=== PATIENT | female | born 1930 | race Caucasian/White ===

== ENCOUNTER 2017-05-16 00:58 | Inpatient (IN) | payer OTHER ==
--- NOTE | 2017-05-16 01:34 | DR.GENAD ---
HPI - PCP Primary Care Physician: TORRI - HPI Comment HPI Comment: "abdominal pain" - Complaint/Symptoms Chief Complaint:: ABD PAIN AND NV ONSET 4 PM TODAY, Self Treatment fo Chief Complaint: NONE - Nurses notes reviewed Nurses Notes Review: Yes - Source History Provided: Patient - Mode of Arrival Mode of Arrival: EMS - Timing Onset of Chief Complaint: 05/16/17 Came on: Gradually - Duration Duration: Since Onset How lon Duration: Hours - Severity Severity: Moderate - Associated Signs and Symptoms Associated Signs and Symptoms: nausea and vomiting after eating baked squash today at 1pm. PMH - PMH Past Medical History: Yes Past Medical History: Hypertension Past Medical History Comment: A FIB Past Surgical History: Yes Surgical History: CABG/Valve Surgery, Hysterectomy Past Surgical History Comment: EYE X 3 , - Family History History of Family Medical Conditions: No - Social History Does patient currently use any type of tobacco product: No Have you used tobacco products in the last 12 months: No Does any household member use tobacco: No Alcohol Use: None Do you use any recreational Drugs:: No Lives With: Alone Lives Where: Home - infectious screening In the last 2 months have you had wt loss of >10#?: NO Have you had fever, night sweats or hemotysis?: No Have you traveled outside the country in the last 6 months?: No Isolation: Standard ROS - Review of Systems Constitutional: No Symptoms Reported Eyes: No Symptoms Reported ENTM: No Symptoms Reported Respiratoy: No Symptoms Reported Cardiovascular: No Symptoms Reported Gastrointestinal/Abdominal: Abdominal Pain, Nausea, Vomiting Genitourinary: No Symptoms Reported Neurological: No Symptoms Reported Musculoskeletal: No Symptoms Reported Integumentary: No Symptoms Reported Hematologic/Lymphatic: No Symptoms Reported Endocrine: No Symptoms Reported Psychiatric: No Symptoms Reported All Other Systems: Reviewed and Negative PE - Vital Signs Vitals: Temperature 98.5 F Pulse Rate [Right Brachial] 106 Pulse Rate 114 Respiratory Rate 22 Blood Pressure [Right Arm] 98/56 Blood Pressure 175/85 O2 Sat by Pulse Oximetry 96 - General Limitations: No Limitations General Appearance: Alert, In No Apparent Distress - Head Head Exam: Normal Inspection - Eyes Eye exam: Normal Appearance, PERRL, EOMI - ENT ENT Exam: Normal Exam, Normal Oropharynx, Mucous Membranes Moist Mouth Exam: Normal Inspection - Neck Neck Exam: Normal Inspection, Full ROM, Trachea Midline - Chest Chest Inspection: Normal Inspection - Respiratory Respiratory Exam: Normal Lung Sounds Bilat Respiratory Exam: Bilateral Clear to Auscultation - Cardiovascular Cardiovascular Exam: Regular Rate, Normal Rhythm, Normal Heart Sounds - Abdominal Exam Abdominal Exam: Tenderness, Hyperactive Bowel Sounds Abdominal Tenderness: RLQ, LLQ, Epigastrium - Extremities Extremities Exam: Normal Inspection, Full ROM - Back Back Exam: Normal Inspection - Neurologic Neurological Exam: Alert, Oriented X3, CN II-XII Intact - Psychiatric Psychiatric Exam: Normal Affect, Normal Mood - Skin Skin Exam: Warm, Dry, Intact, Normal Color ROR - Labs Reviewed Result Diagrams: 05/16/17 01:50 05/16/17 01:50 Laboratory: WBC 14.6 X10^3/uL (3.6-10.0) H 05/16/17 01:50 RBC 4.11 X10^6/uL (3.5-5.4) 05/16/17 01:50 Hgb 12.8 g/dL (12.0-16.0) 05/16/17 01:50 Hct 37.5 % (36.0-47.0) 05/16/17 01:50 MCV 91.2 fL (80.0-100.0) 05/16/17 01:50 MCH 31.2 pg (27.0-34.0) 05/16/17 01:50 MCHC 34.2 g/dL (33.0-35.0) 05/16/17 01:50 RDW 14.5 % (11.6-16.5) 05/16/17 01:50 Plt Count 242 X10^3/uL (150.0-450.0) 05/16/17 01:50 MPV 7.4 fL (7.4-11.0) 05/16/17 01:50 Neut % 83.5 % (42.0-75.0) H 05/16/17 01:50 Lymph % 9.7 % (21.0-51.0) L 05/16/17 01:50 [place] % 6.0 % (0.0-13.0) 05/16/17 01:50 Eos % 0.4 % (0.9-2.9) L 05/16/17 01:50 Baso % 0.4 % (0.2-1.0) 05/16/17 01:50 Neut # 12.2 x10^3/uL (2.2-4.8) H 05/16/17 01:50 Lymph # 1.4 X10^3/uL (1.3-2.9) 05/16/17 01:50 [place] # 0.9 x10^3/uL (0.3-0.8) H 05/16/17 01:50 Eos # 0.1 x10^3/uL (0.0-0.2) 05/16/17 01:50 Baso # 0.1 X10^3/uL (0.0-0.1) 05/16/17 01:50 Absolute Nucleated RBC 0.0 /100WBC 05/16/17 01:50 INR Target Range - 05/16/17 01:50 INR 1.74 (0.8-1.3) H 05/16/17 01:50 Sodium 138 mmol/L (136-145) 05/16/17 01:50 Corrected Sodium 139 mmol/L (136-145) 05/16/17 01:50 Potassium 3.8 mmol/L (3.5-5.1) 05/16/17 01:50 Chloride 101 mmol/L (98-107) 05/16/17 01:50 Carbon Dioxide 29.2 mmol/L (21-32) 05/16/17 01:50 BUN 30 mg/dL (7-18) H 05/16/17 01:50 Creatinine 1.21 mg/dL (0.55-1.02) H 05/16/17 01:50 Est GFR (MDRD) Af Amer 54 (>60) L 05/16/17 01:50 Est GFR (MDRD) Non-Af 45 (>60) L 05/16/17 01:50 Glucose 155 mg/dL (65-99) H 05/16/17 01:50 Calcium 8.6 mg/dL (8.5-10.1) 05/16/17 01:50 Corrected Calcium TNP 05/16/17 01:50 Total Bilirubin 0.40 mg/dL (0.2-1.0) 05/16/17 01:50 AST 23 Units/L (15-37) 05/16/17 01:50 ALT 25 Units/L (12-78) 05/16/17 01:50 Alkaline Phosphatase 54 Units/L (46-116) 05/16/17 01:50 Creatine Kinase 54 Units/L (26-192) 05/16/17 01:50 CK-MB (CK-2) < 1.0 ng/mL (0-4.0) 05/16/17 01:50 CK/CKMB % Calc 1.9 % (<4) 05/16/17 01:50 Troponin I < 0.02 ng/mL (0-1.5) 05/16/17 01:50 Total Protein 7.8 g/dL (6.4-8.2) 05/16/17 01:50 Albumin 4.0 g/dL (3.4-5.0) 05/16/17 01:50 Globulin 3.8 g/dL (2.5-4.5) 05/16/17 01:50 Albumin/Globulin Ratio 1.1 Ratio (1.1-2.1) 05/16/17 01:50 Amylase 50 Units/L (25-115) 05/16/17 01:50 Lipase 120 Units/L (73-393) 05/16/17 01:50 Specimen Type Clean catch urine 05/16/17 02:21 Urine Color Yellow (YELLOW) 05/16/17 02:21 Urine Appearance Hazy (CLEAR) 05/16/17 02:21 Urine pH 6.0 (5.0 - 8.0) 05/16/17 02:21 Ur Specific [place] 1.015 (1.000-1.030) 05/16/17 02:21 Urine Protein 2+ (NEGATIVE) 05/16/17 02:21 Urine Glucose (UA) Negative (NEGATIVE) 05/16/17 02:21 Urine Ketones Negative (NEGATIVE) 05/16/17 02:21 Urine Occult Blood 2+ (NEGATIVE) 05/16/17 02:21 Urine Nitrite Positive (NEGATIVE) 05/16/17 02:21 Urine Bilirubin Negative (NEGATIVE) 05/16/17 02:21 Urine Urobilinogen Normal (NORMAL) 05/16/17 02:21 Ur Leukocyte Esterase 1+ (NEGATIVE) 05/16/17 02:21 Urine RBC 2-6 /HPF (NEGATIVE) 05/16/17 02:21 Urine WBC 8-12 /HPF (NEGATIVE) 05/16/17 02:21 Ur Squamous Epith Cells Few /HPF (NEGATIVE) 05/16/17 02:21 Urine Bacteria 3+ /HPF (NEGATIVE) 05/16/17 02:21 Ur Culture Indicated? Yes/culture set up 05/16/17 02:21 Gastric Occult Blood Positive (NEGATIVE) A 05/16/17 01:45 Stool pH 3 05/16/17 01:45 H. pylori IgG Antibody Positive (NEGATIVE) A 05/16/17 01:50 - Diagnosis Discharge Problem: Gastroenteritis, Abdominal pain, Urinary tract infection, Helicobacter pylori antibody positive, Helicobacter pylori (H. pylori) infection - Discharge Plan Disposition: 01 HOME, SELF-CARE Condition: Stable Prescriptions: Nitrofurantoin Macrocrystal [Macrodantin] 100 mg PO BID #14 capsule - Follow ups/Referrals Follow ups/Referrals: Mika Rivera [Primary Care Provider] - 3 days - Instructions Instructions: Gastritis, Adult, [id number], Gastritis, Adult, Urinary Tract Infection, Helicobacter Pylori Antibodies Test Additional Notes - Additional Notes Additional Notes: I spoke with Dr. Rivera and he has agreed to admit this patient to the hospital.
[2017-05-16] MEDS ORDERED: ZOFRAN INJ 4 MG VIAL IVP ONE ×2 (01:39→07:32)
[2017-05-16] MEDS ORDERED: PEPCID 20 MG IV PREMIX* 20 MG/50 ML BAG IV ONE ×2 (01:39→01:49)
[2017-05-16] MEDS ORDERED: 1/2 NS IV ONE (01:40)
[2017-05-16] MEDS ORDERED: D5 IV ONE (01:40)
[2017-05-16] MEDS ORDERED: ZOFRAN INJ 4 MG VIAL ONE ×2 (01:49→07:33)
[2017-05-16 02:09] LABS: BASOPHILS # (AUTO) 0.1 X10^3/uL (0.0-0.1); BASOPHILS % (AUTO) 0.4 % (0.2-1.0); EOSINOPHILS # (AUTO) 0.1 x10^3/uL (0.0-0.2); EOSINOPHILS % (AUTO) 0.4 % (0.9-2.9); HEMATOCRIT 37.5 % (36.0-47.0); HEMOGLOBIN 12.8 g/dL (12.0-16.0); LYMPHOCYTES # (AUTO) 1.4 X10^3/uL (1.3-2.9); LYMPHOCYTES % (AUTO) 9.7 % (21.0-51.0); MEAN CORPUSCULAR HEMOGLOBIN 31.2 pg (27.0-34.0); MEAN CORPUSCULAR HGB CONC 34.2 g/dL (33.0-35.0); MEAN CORPUSCULAR VOLUME 91.2 fL (80.0-100.0); MEAN PLATELET VOLUME 7.4 fL (7.4-11.0); MONOCYTES # (AUTO) 0.9 x10^3/uL (0.3-0.8); NEUTROPHILS # (AUTO) 12.2 x10^3/uL (2.2-4.8); NEUTROPHILS % (AUTO) 83.5 % (42.0-75.0); PLATELET COUNT 242 X10^3/uL (150.0-450.0); RED BLOOD COUNT 4.11 X10^6/uL (3.5-5.4); RED CELL DISTRIBUTION WIDTH 14.5 % (11.6-16.5); WHITE BLOOD COUNT 14.6 X10^3/uL (3.6-10.0)
[2017-05-16 02:10] LABS: GASTRIC OCCULT BLOOD POSITIVE (NEGATIVE)
[2017-05-16 02:11] LABS: PH 3
--- NOTE | 2017-05-16 02:28 | RAD ---
EXAM: Abdomen series and Chest x-ray INDICATION: Abdominal pain COMPARISION: No priors TECHNIQUE: Abdomen flat and upright, two views and PA view of the chest, single view FINDINGS: Chronic lung parenchymal changes are seen bilaterally consistent with COPD. No pneumothorax or pleur al effusion. The cardiac silhouette and mediastinum are normal. The bowel gas pattern is nonobstruct ed. No abnormal mass effect or calcification. The regional skeleton is intact. No free air is seen u nder the hemidiaphragms. IMPRESSION: COPD. No acute abnormality identified. Reported By:
[2017-05-16 02:29] LABS: BLOOD UREA NITROGEN 30 mg/dL (7-18); CALCIUM 8.6 mg/dL (8.5-10.1); CARBON DIOXIDE 29.2 mmol/L (21-32); CHLORIDE 101 mmol/L (98-107); COR NA(FOR HYPERGLY) 139 mmol/L (136-145); CREATININE 1.21 mg/dL (0.55-1.02); GLUCOSE 155 mg/dL (65-99); SODIUM 138 mmol/L (136-145); TROPONIN I < 0.02 ng/mL (0-1.5); eGFR BLACK RACES 54 (>60); eGFR NON BLACK RACES 45 (>60)
[2017-05-16 02:33] LABS: ALANINE AMINOTRANSFERASE 25 Units/L (12-78); ALKALINE PHOSPHATASE 54 Units/L (46-116); AMYLASE 50 Units/L (25-115); ASPARTATE AMINO TRANSFERASE 23 Units/L (15-37); CKMB % 1.9 % (<4); CREATINE KINASE 54 Units/L (26-192); CREATINE KINASE MB < 1.0 ng/mL (0-4.0); LIPASE 120 Units/L (73-393); TOTAL PROTEIN 7.8 g/dL (6.4-8.2)
[2017-05-16 02:45] LABS: BILIRUBIN,URINE NEGATIVE (NEGATIVE); BLOOD/HEMOGLOBIN,URINE 2+ (NEGATIVE); GLUCOSE, URINE NEGATIVE (NEGATIVE); KETONES,URINE NEGATIVE (NEGATIVE); LEUKOCYTE ESTERASE ,URINE 1+ (NEGATIVE); NITRITES,URINE POSITIVE (NEGATIVE); PROTEIN,URINE 2+ (NEGATIVE); UROBILINOGEN,URINE NORMAL (NORMAL)
[2017-05-16] MEDS ORDERED: CARDIZEM INJ 50 MG VIAL IVP ONE ×2 (03:06→04:11)
[2017-05-16] MEDS ORDERED: CARDIZEM INJ 50 MG VIAL ONE (03:07)
[2017-05-16 03:24] LABS: APPEARANCE,URINE HAZY (CLEAR); COLOR,URINE YELLOW (YELLOW)
[2017-05-16 03:25] LABS: BACTERIA,URINE 3+ /HPF (NEGATIVE); SQUAMOUS EPITHELIAL CELL,UR FEW /HPF (NEGATIVE)
[2017-05-16] MEDS ORDERED: LEVAQUIN PREMIX IV 500 MG 500 MG/100 ML BAG IV ONE ×2 (04:37→04:42)
[2017-05-16] MEDS ORDERED: COUMADIN TAB 5 MG PO ONE (04:52)
[2017-05-16] MEDS ORDERED: NS 100 ML IV 100 ML IV ONE (05:03)
[2017-05-16] MEDS ORDERED: CARDIZEM INJ 125 MG VIAL ONE (05:04)
[2017-05-16] MEDS: CARDIZEM INJ 125 MG VIAL 125 MG in NS 100 ML IV 100 ML IV PRN ×3 (05:19→12:33)
[2017-05-16] MEDS ORDERED: LEVSIN/MAALOX/LIDOC VISC PO ONE (07:31)
[2017-05-16] MEDS ORDERED: LEVSIN/MAALOX/LIDOC VISC ONE (07:34)
[2017-05-16] MEDS ORDERED: TYLENOL 500 MG TAB EXTRA STRENGTH PO PRN (07:51)
[2017-05-16] MEDS ORDERED: D5 NS 1000 ML 1,000 ML IV SCH (08:00)
[2017-05-16 08:35] LABS: BASOPHILS # (AUTO) 0.1 X10^3/uL (0.0-0.1); BASOPHILS % (AUTO) 0.5 % (0.2-1.0); EOSINOPHILS # (AUTO) 0.1 x10^3/uL (0.0-0.2); EOSINOPHILS % (AUTO) 0.6 % (0.9-2.9); HEMATOCRIT 36.7 % (36.0-47.0); HEMOGLOBIN 12.5 g/dL (12.0-16.0); LYMPHOCYTES # (AUTO) 1.6 X10^3/uL (1.3-2.9); MEAN CORPUSCULAR HEMOGLOBIN 31.1 pg (27.0-34.0); MEAN CORPUSCULAR VOLUME 91.3 fL (80.0-100.0); MEAN PLATELET VOLUME 7.2 fL (7.4-11.0); MONOCYTES # (AUTO) 0.8 x10^3/uL (0.3-0.8); MONOCYTES % (AUTO) 6.4 % (0.0-13.0); NEUTROPHILS # (AUTO) 9.7 x10^3/uL (2.2-4.8); NEUTROPHILS % (AUTO) 79.5 % (42.0-75.0); PLATELET COUNT 239 X10^3/uL (150.0-450.0); RED BLOOD COUNT 4.01 X10^6/uL (3.5-5.4); RED CELL DISTRIBUTION WIDTH 14.3 % (11.6-16.5); WHITE BLOOD COUNT 12.1 X10^3/uL (3.6-10.0)
[2017-05-16 08:44] LABS: ALANINE AMINOTRANSFERASE 24 Units/L (12-78); ALBUMIN 3.6 g/dL (3.4-5.0); ALKALINE PHOSPHATASE 51 Units/L (46-116); ASPARTATE AMINO TRANSFERASE 22 Units/L (15-37); BLOOD UREA NITROGEN 24 mg/dL (7-18); CALCIUM 8.3 mg/dL (8.5-10.1); CARBON DIOXIDE 26.9 mmol/L (21-32); CHLORIDE 101 mmol/L (98-107); CREATININE 1.11 mg/dL (0.55-1.02); GLUCOSE 110 mg/dL (65-99); SODIUM 137 mmol/L (136-145); TOTAL PROTEIN 7.4 g/dL (6.4-8.2); eGFR BLACK RACES 60 (>60); eGFR NON BLACK RACES 50 (>60)
[2017-05-16 09:34] VITALS: BMI 32.8
[2017-05-16] MEDS ORDERED: LANOXIN INJ IVP ONE (11:08)
--- NOTE | 2017-05-16 11:27 | DR.H&P ---
H&P - History & Physical for Day of: H&P Date: 05/16/17 - Chief Complaint Chief Complaint: ABDOMINAL PAIN, NAUSEA, VOMITING - Allergies Allergies/Adverse Reactions: Allergies Allergy/AdvReac Type Severity Reaction Status Date / Time MS Amiodarone [Amiodarone] Allergy Verified 12/12/16 10:20 MS Prednisone [Prednisone] Allergy Verified 12/12/16 10:20 MS Amoxicillin AdvReac Verified 12/12/16 10:20 [From Augmentin] MS Cetirizine [From Zyrtec] AdvReac Verified 12/12/16 10:20 MS Clavulanic Acid AdvReac Verified 12/12/16 10:20 [From Augmentin] MS Statins [Statins] AdvReac Verified 12/12/16 10:20 MS Sulfa Antibiotics AdvReac Verified 12/12/16 10:20 [Sulfa Antibiotics] MS Tramadol [From Ultram] AdvReac Verified 12/12/16 10:20 MS Zolpidem [From Ambien] AdvReac Verified 12/12/16 10:20 - History of Present Illness History of Present Illness: Patient is a 86yo female patient of ours who presented to the emergency room with complaint of nausea, vomiting, and abdominal pain that started at 4pm yesterday. Physical exam revealed abdominal tenderness in RLQ, LLQ, and epitastric area. senior dentist revealed that patient was in atrial fibrillation. Patient reports a history of a-fib. On arrival to the er, vitals were 98.5-114-22-96%-175/85. Labs were obtained and reported wbc 14.6, hgb 12.8, hct 37.5. Cmp obtained and reported sodium 138, BUN 30, creatinine 1.21, glucose 155. INR 1.74, gastric occult blood positive. H -pylori positive. Abdominal xray on arrival reported COPD and no acute abnormality. EKG showed Atrial fibrillation with a rate of 104. Urinalysis reports wbc 8-12, rbc 2-6, nitrates positive, leukocytes 1+, protein 2+, bacteria 3+. A culture was set up and is pending. In the ER patient was given a D5 NS bolus, GI Cocktail for abdominal pain, Pepcid 20mg IV, Levaquin 500mg IV, Zofran 4mg at 0150 and Zofran 8mg @ 0738, Coumadin 5mg, Cardizem 20mg IV bolus and started on Cardizem drip at 10mg/hr. Patient heart rate remains 100- 113. We admitted patient with diagnosis of atrial fibrillation, UTI and H- Pylori gastritis. Patient started on D5 NS @ 20ml/hr, Cardizem drip @10mg/hr, Tylenol 500-100mg PO Q6hr PRN. 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, - Past Surgical History Surgical History: CABG/Valve Surgery, Hysterectomy Additional Surgical History: LEFT CAROTID SURGERY - Family History Family Medical History: Coronary Artery Disease - Social History Does patient currently use any type of tobacco product: No Have you used tobacco products in the last 12 months: No Type of Tobacco Use: None Does any household member use tobacco: No Alcohol Use: None Drug Use: None - Medications Home Medications: Meclizine HCl 1 tab PO HS 05/16/17 [History Confirmed 05/16/17] Ranitidine HCl [ZANTAC TAB 150 MG *] 1 tab PO DAILY 05/16/17 [History Confirmed 05/16/17] - Review of Systems Constitutional: Weakness. denies: No Symptoms Reported, See HPI, Fever, Chills , Sweats, Malaise, Other Eyes: No Symptoms Reported. denies: See HPI, Pain, Vision Change, Conjunctivae Inflammation, Eyelid Inflammation, Redness, Other ENT: No Symptoms Reported. denies: See HPI, Ear Pain, Ear Discharge, Nose Pain , Nose Discharge, Nose Congestion, Mouth Pain, Mouth Swelling, Throat Pain, Throat Swelling, Other Respiratory: Shortness of Breath. denies: No Symptoms Reported, See HPI, Cough , Dry, Hemoptysis, SOB with Excertion, Pleuritic Pain, Sputum, Wheezing, Other Cardiovascular: No Symptoms Reported. denies: Chest Pain, See HPI, Palpitations , Orthopnea, Paroxysmal Noc. Dyspnea, Edema, Light Headedness, Other Gastrointestinal: See HPI, Nausea, Vomiting, Abdominal Pain. denies: No Symptoms Reported, Diarrhea, Constipation, Melena, Hematochezia, Other Genitourinary: No Symptoms Reported, Dysuria. denies: See HPI, Frequency, Incontinence, Hematuria, Retention, Other Musculoskeletal: No Symptoms Reported. denies: See HPI, Shoulder Pain, Arm Pain , Back Pain, Hand Pain, Leg Pain, Foot Pain, Neck Pain, Other Skin: No Symptoms Reported. denies: See HPI, Rash, Lesions, Jaundice, Bruising , Wound, Ecchymosis, Other Neurological: Weakness. denies: No Symptoms Reported, See HPI, Numbness, Incoordination, Change in Speech, Confusion, Seizures, Other - Physical Exam Vital Signs: Temperature 99 F Pulse Rate [Right Brachial] 113 Respiratory Rate 18 Blood Pressure [Right Arm] 124/82 O2 Sat by Pulse Oximetry 97 Oriented: Normal. negative: Time, Person, Place, Not Oriented, Unable to test, Other Eyes: Normal. negative: Blurred Vision, Diplopia, Discharge, Pain, Redness, Photophobia, Other Ear: Normal. negative: Right, Left, Swelling, Ecchymosis, Hemotypanum, Abrasion , Laceration Nose: Normal. negative: Injected, Discharge, Blood, Other Throat: Normal. negative: Tonsillar Hypertrophy, Red, Exudate, Dry, Other Respiratory: Clear Throughout. negative: Diminished Throughout, Rhonchi Throughout, Rales Throughout, Wheezes Throughout, RUL Clear, RML Clear, RLL Clear, NAYE Clear, LML Clear, LLL Clear, RUL Diminished, RML Diminished, RLL Diminished, NAYE Diminished, LML Diminished, LLL Diminished, RUL Absent, RML Absent, RLL Absent, NAYE Absent, LML Absent, LLL Absent, RUL Rhonchi, RML Rhonchi , RLL Rhonchi, NAYE Rhonchi, LML Rhonchi, LLL Rhonchi, RUL Insp. Wheeze, RML Insp. Wheeze, RLL Insp. Wheeze, NAYE Insp.Wheeze, LML Insp.Wheeze, LLL Insp.Wheeze, RUL Exp. Wheeze, RML Exp. Wheeze, RLL Exp. Wheeze, NAYE Exp. Wheeze , LML Exp. Wheeze, LLL Exp. Wheeze, RUL Rales, RML Rales, RLL Rales, NAYE Rales, LML Rales, LLL Rales, RUL Rub, RML Rub, RLL Rub, NAYE Rub, LML Rub, LLL Rub, RUL Squeak, RML Squeak, RLL Squeak, NAYE Squeak, LML Squeak, LLL Squeak Cardiovascular: Tachycardia. negative: Normal, Bradycardia, Irregular, S3, S4, Systolic, Diastolic, Murmur, Edema, Other : Normal. negative: Dysuria, Hematuria, Frequency, Discharge, Testicular Pain , Bleeding, , Other Auscultation: Bowel Sounds: Normal. negative: Bruit, Absent, Increased, Decreased, High Pitched, Other Palpation: negative: Normal, Spleen Enlarged, Liver Enlarged, Mass Pulsatile, Other Tenderness: RLQ, LLQ, Epigastric. negative: Normal, Diffuse, RUQ, LUQ, Periumbilical, Suprapubic, Mild, Moderate, Severe, Rebound, Guarding, Rigidity, Other Skin: Normal. negative: Decreased Turgur, Rash, Papular, Macular, Maculopapular , Vesicular, Pustular, Petechial, Red, Tender, Hot, Diaphoresis, Wound, Bruising , Ecchymosis, Other Musculoskeletal: Normal. negative: Right, Left, Shoulder, Clavicle, Arm, Elbow , Forearm, Wrist, Hand, Hip, Thigh, Knee, Leg, Ankle, Foot, Back:Thoracic, Back: Lumbar, Back:Midline, Back:Paraspinous, Pelvis, Swelling, Tender, Deformity, Pulse Deficit, Motor Deficit, Sensory Deficit, Instability, Crepitance Psychiatric: Normal. negative: Anxiety, Depression, Agitation, Other Mood Description: Calm. negative: Angry, Apathetic, Depressed, Fearful, Flat, Happy, Hostile, Sad, Suspicious, Withdrawn, Anxious, Appropriate, Labile Affect: Normal. negative: Angry, Anxious, Depressed, Flat, Hysterical, Quiet, Violent Speech Pattern: Clear. negative: Appropriate, Unclear, Inappropriate, Delayed, Slurred, Excessive, Aphasic, Artificially Ventilated - Assessment/Plan (1) Atrial fibrillation Qualifiers: Atrial fibrillation type: unspecified Qualified Code(s): I48.91 - Unspecified atrial fibrillation Status: Acute Plan: digoxin 250mcg bolus, cardizem cd 240mg x 1, wean off cardizem drip, continue to monitor digoxin levels, ekg, irn, monitor patient (2) Urinary tract infection Qualifiers: Urinary tract infection type: site unspecified Hematuria presence: with hematuria Indwelling urinary catheter type: I Encounter type: E Qualified Code(s): N39.0 - Urinary tract infection, site not specified; R31.9 - Hematuria , unspecified Status: Acute Plan: rocephin 1 gm daily, continue to monitor (3) Helicobacter pylori (H. pylori) infection Status: Acute Plan: pepcid 20mg iv bid, continue to monitor
[2017-05-16] MEDS ORDERED: ZANTAC PO ONE (11:34)
[2017-05-16] MEDS ORDERED: CARDIZEM CD 240 MG PO ONE (11:35)
[2017-05-16] MEDS: NORVASC TAB 5 MG PO SCH ×2 (11:40→21:21)
[2017-05-16] MEDS ORDERED: ZANTAC PO SCH (12:00)
[2017-05-16] MEDS: PEPCID 20 MG IV PREMIX* 20 MG/50 ML BAG IV SCH (20:45)
[2017-05-16] MEDS: ANTIVERT TAB 25 MG PO SCH (20:45)
[2017-05-16] MEDS: COUMADIN TAB 10 MG PO SCH (20:46)
[2017-05-17 06:29] LABS: BASOPHILS % (AUTO) 0.2 % (0.2-1.0); EOSINOPHILS # (AUTO) 0.1 x10^3/uL (0.0-0.2); EOSINOPHILS % (AUTO) 1.3 % (0.9-2.9); HEMATOCRIT 37.8 % (36.0-47.0); HEMOGLOBIN 12.9 g/dL (12.0-16.0); LYMPHOCYTES # (AUTO) 2.1 X10^3/uL (1.3-2.9); LYMPHOCYTES % (AUTO) 23.5 % (21.0-51.0); MEAN CORPUSCULAR HEMOGLOBIN 31.4 pg (27.0-34.0); MEAN CORPUSCULAR HGB CONC 34.2 g/dL (33.0-35.0); MEAN CORPUSCULAR VOLUME 91.8 fL (80.0-100.0); MEAN PLATELET VOLUME 7.9 fL (7.4-11.0); MONOCYTES # (AUTO) 0.9 x10^3/uL (0.3-0.8); MONOCYTES % (AUTO) 9.8 % (0.0-13.0); NEUTROPHILS # (AUTO) 5.7 x10^3/uL (2.2-4.8); NEUTROPHILS % (AUTO) 65.2 % (42.0-75.0); PLATELET COUNT 235 X10^3/uL (150.0-450.0); RED BLOOD COUNT 4.12 X10^6/uL (3.5-5.4); RED CELL DISTRIBUTION WIDTH 13.8 % (11.6-16.5); WHITE BLOOD COUNT 8.7 X10^3/uL (3.6-10.0)
[2017-05-17 06:47] LABS: ALANINE AMINOTRANSFERASE 22 Units/L (12-78); ALBUMIN 3.4 g/dL (3.4-5.0); ALKALINE PHOSPHATASE 47 Units/L (46-116); ASPARTATE AMINO TRANSFERASE 22 Units/L (15-37); BLOOD UREA NITROGEN 20 mg/dL (7-18); CALCIUM 8.2 mg/dL (8.5-10.1); CARBON DIOXIDE 26.4 mmol/L (21-32); CHLORIDE 106 mmol/L (98-107); CREATININE 1.18 mg/dL (0.55-1.02); DIGOXIN 0.41 ng/mL (0.9-2); GLUCOSE 105 mg/dL (65-99); SODIUM 140 mmol/L (136-145); TOTAL PROTEIN 7.1 g/dL (6.4-8.2); eGFR BLACK RACES 56 (>60); eGFR NON BLACK RACES 46 (>60)
[2017-05-17] MEDS: PEPCID 20 MG IV PREMIX* 20 MG/50 ML BAG IV SCH ×3 (09:26→21:21)
[2017-05-17] MEDS: NORVASC TAB 5 MG PO SCH (09:26)
[2017-05-17] MEDS: ROCEPHIN VIAL 1 GM 1 GM in NS 50 ML IV + SPIKE MINIBAG* 50 ML IV SCH (09:27)
[2017-05-17] MEDS ORDERED: CARDIZEM CD 240 MG PO ONE (11:09)
[2017-05-17] MEDS: ANTIVERT TAB 25 MG PO SCH (21:21)
[2017-05-17] MEDS: COUMADIN TAB 10 MG PO SCH (21:21)
[2017-05-17] MEDS: CARDIZEM TAB 30 MG PLAIN PO SCH (21:23)
[2017-05-17] MEDS ORDERED: RESTORIL CAP 15 MG PO PRN (21:57)
[2017-05-17] MEDS ORDERED: CARDIZEM TAB 30 MG PLAIN PO SCH (22:00)
[2017-05-18] MEDS: CARDIZEM TAB 30 MG PLAIN PO SCH ×2 (06:45→14:44)
[2017-05-18 06:53] LABS: BASOPHILS # (AUTO) 0.1 X10^3/uL (0.0-0.1); BASOPHILS % (AUTO) 0.8 % (0.2-1.0); EOSINOPHILS # (AUTO) 0.2 x10^3/uL (0.0-0.2); EOSINOPHILS % (AUTO) 1.5 % (0.9-2.9); HEMATOCRIT 39.4 % (36.0-47.0); HEMOGLOBIN 13.5 g/dL (12.0-16.0); LYMPHOCYTES # (AUTO) 1.2 X10^3/uL (1.3-2.9); LYMPHOCYTES % (AUTO) 11.6 % (21.0-51.0); MEAN CORPUSCULAR HEMOGLOBIN 31.1 pg (27.0-34.0); MEAN CORPUSCULAR HGB CONC 34.3 g/dL (33.0-35.0); MEAN CORPUSCULAR VOLUME 90.7 fL (80.0-100.0); MEAN PLATELET VOLUME 7.4 fL (7.4-11.0); MONOCYTES % (AUTO) 9.3 % (0.0-13.0); NEUTROPHILS # (AUTO) 7.9 x10^3/uL (2.2-4.8); NEUTROPHILS % (AUTO) 76.8 % (42.0-75.0); PLATELET COUNT 254 X10^3/uL (150.0-450.0); RED BLOOD COUNT 4.35 X10^6/uL (3.5-5.4); RED CELL DISTRIBUTION WIDTH 13.9 % (11.6-16.5); WHITE BLOOD COUNT 10.3 X10^3/uL (3.6-10.0)
[2017-05-18 07:10] LABS: ALANINE AMINOTRANSFERASE 26 Units/L (12-78); ALBUMIN 3.7 g/dL (3.4-5.0); ALKALINE PHOSPHATASE 54 Units/L (46-116); ASPARTATE AMINO TRANSFERASE 29 Units/L (15-37); BLOOD UREA NITROGEN 17 mg/dL (7-18); CALCIUM 8.2 mg/dL (8.5-10.1); CARBON DIOXIDE 27.1 mmol/L (21-32); CHLORIDE 105 mmol/L (98-107); COR NA(FOR HYPERGLY) 139 mmol/L (136-145); CREATININE 1.11 mg/dL (0.55-1.02); GLUCOSE 114 mg/dL (65-99); SODIUM 139 mmol/L (136-145); TOTAL PROTEIN 7.4 g/dL (6.4-8.2); eGFR BLACK RACES 60 (>60); eGFR NON BLACK RACES 50 (>60)
[2017-05-18] MEDS: PEPCID 20 MG IV PREMIX* 20 MG/50 ML BAG IV SCH ×2 (09:10→22:11)
[2017-05-18] MEDS: ROCEPHIN VIAL 1 GM 1 GM in NS 50 ML IV + SPIKE MINIBAG* 50 ML IV SCH (09:54)
[2017-05-18] MEDS ORDERED: HALDOL INJ IVP PRN (10:39)
[2017-05-18] MEDS ORDERED: LANOXIN INJ IVP ONE (15:03)
[2017-05-18] MEDS ORDERED: LOPRESSOR INJ 5 MG AMP IVP ONE (15:05)
[2017-05-18] MEDS ORDERED: LANOXIN INJ IVP SCH ×2 (15:10→21:15)
[2017-05-18] MEDS ORDERED: CARDIZEM INJ 125 MG VIAL 125 MG in NS 100 ML IV 100 ML IV PRN (20:02)
[2017-05-18] MEDS ORDERED: CARDIZEM INJ 125 MG VIAL ONE (20:03)
[2017-05-18] MEDS ORDERED: NS 100 ML IV 100 ML IV ONE (20:04)
[2017-05-18] MEDS: BETAPACE AF PO SCH (22:12)
[2017-05-18] MEDS: ANTIVERT TAB 25 MG PO SCH (22:13)
[2017-05-18] MEDS: COUMADIN TAB 10 MG PO SCH (22:15)
[2017-05-19 05:53] LABS: ALANINE AMINOTRANSFERASE 29 Units/L (12-78); ALBUMIN 3.2 g/dL (3.4-5.0); ALKALINE PHOSPHATASE 49 Units/L (46-116); ASPARTATE AMINO TRANSFERASE 32 Units/L (15-37); BASOPHILS # (AUTO) 0.1 X10^3/uL (0.0-0.1); BLOOD UREA NITROGEN 16 mg/dL (7-18); CALCIUM 7.9 mg/dL (8.5-10.1); CARBON DIOXIDE 26.4 mmol/L (21-32); CHLORIDE 106 mmol/L (98-107); COR CA(FOR HYPOALB) 8.5 mg/dL (8.5-10.1); EOSINOPHILS # (AUTO) 0.2 x10^3/uL (0.0-0.2); EOSINOPHILS % (AUTO) 3.3 % (0.9-2.9); GLUCOSE 98 mg/dL (65-99); HEMATOCRIT 39.6 % (36.0-47.0); HEMOGLOBIN 13.6 g/dL (12.0-16.0); LYMPHOCYTES # (AUTO) 1.5 X10^3/uL (1.3-2.9); LYMPHOCYTES % (AUTO) 21.1 % (21.0-51.0); MEAN CORPUSCULAR HEMOGLOBIN 31.4 pg (27.0-34.0); MEAN CORPUSCULAR HGB CONC 34.4 g/dL (33.0-35.0); MEAN CORPUSCULAR VOLUME 91.3 fL (80.0-100.0); MEAN PLATELET VOLUME 7.5 fL (7.4-11.0); MONOCYTES # (AUTO) 0.9 x10^3/uL (0.3-0.8); MONOCYTES % (AUTO) 12.2 % (0.0-13.0); NEUTROPHILS # (AUTO) 4.6 x10^3/uL (2.2-4.8); NEUTROPHILS % (AUTO) 62.4 % (42.0-75.0); PLATELET COUNT 229 X10^3/uL (150.0-450.0); RED BLOOD COUNT 4.33 X10^6/uL (3.5-5.4); RED CELL DISTRIBUTION WIDTH 13.6 % (11.6-16.5); SODIUM 140 mmol/L (136-145); TOTAL PROTEIN 6.7 g/dL (6.4-8.2); WHITE BLOOD COUNT 7.3 X10^3/uL (3.6-10.0); eGFR BLACK RACES > 60 (>60); eGFR NON BLACK RACES 56 (>60)
[2017-05-19] MEDS: ROCEPHIN VIAL 1 GM 1 GM in NS 50 ML IV + SPIKE MINIBAG* 50 ML IV SCH (09:16)
[2017-05-19] MEDS: PEPCID 20 MG IV PREMIX* 20 MG/50 ML BAG IV SCH ×2 (09:16→20:16)
[2017-05-19] MEDS: BETAPACE AF PO SCH ×2 (09:16→20:17)
--- NOTE | 2017-05-19 10:10 | RAD ---
HISTORY: Shortness of breath Study: Single view of the chest. Comparison: 05/16/2017 Findings: The cardiomediastinal silhouette is normal. No focal consolidations, pleural effusions or pneumothor ax. Osseous structures demonstrate no acute abnormality. IMPRESSION: 1. No acute cardiopulmonary process. Reported By:
--- NOTE | 2017-05-19 10:54 | PCM.PROG ---
Progress Note - Progress Note for Day of Date: 05/19/17 - Subjective Subjective: IS ALERT AND ORIENTED ON MORNING ROUNDS. FAMILY AT BEDSIDE. PATIENT COMPLAINS OF SUPRAPUBIC PAIN AND A BURNING SENSATION TO HER STOMACH. SHE DENIES CHEST PAIN OR SHORTNESS OF BREATH AT THIS TIME. ON EXAMINATION, LUNGS ARE CLEAR TO AUSCULTATION. BOWEL SOUNDS ARE NORMAL IN ALL QUADRANTS. VITALS THIS AM ARE 98.2-74-17-98%-141/66. CBC WNL. CMP WNL EXCEPT CALCIUM 7.9, ALBUMIN 3.2. INR 3.49, DIGOXIN 1.80. URINE MICROBIOLOGY REPORTS E.COLI WHICH IS SENSITIVE TO THE ROCEPHIN THAT SHE IS ON. CHEST XRAY NORMAL. WE WILL CHECK AN MRI OF THE BRAIN WITHOUT CONTRAST DUE TO GFR OF 56. WE WILL START HER ON CARDIZEM 120MG PO BID. WE WILL RECHECK LABS AND EKGS AND FOLLOW UP WITH PATIENT IN AM. - Past Medical Family Social History Past Med/Fam/Surg Hx: No changes since H&P Allergies: Allergies amiodarone Allergy (Verified 05/16/17 21:20) prednisone Allergy (Verified 05/16/17 21:20) amoxicillin Adverse Reaction (Verified 05/16/17 21:20) cetirizine [From Zyrtec] Adverse Reaction (Verified 05/16/17 21:20) clavulanic acid Adverse Reaction (Verified 05/16/17 21:20) erythromycin base [From Staticin] Adverse Reaction (Verified 05/16/17 21:20) ethyl alcohol [From Staticin] Adverse Reaction (Verified 05/16/17 21:20) Sulfa (Sulfonamide Antibiotics) [SULFA] Adverse Reaction (Verified 05/16/17 21: 20) tramadol Adverse Reaction (Verified 05/16/17 21:20) zolpidem Adverse Reaction (Verified 05/16/17 21:20) - Review of Systems ROS: No change since H&P - Vital Signs and I&O's Vital Signs: Temperature 98.7 F Pulse Rate [Right Brachial] 82 Pulse Rate 123 Respiratory Rate 18 Blood Pressure [Right Arm] 134/68 O2 Sat by Pulse Oximetry 95 Intake and Output: Intake & Output 05/16/17 05/17/17 05/18/17 05/19/17 11:59 11:59 11:59 11:59 Intake Total 125 2106 1045 690 Output Total 1000 1500 Balance 125 1106 -850 690 - Physical Exam Oriented: Normal. negative: Time, Person, Place, Not Oriented, Unable to test, Other Eyes: Normal. negative: Blurred Vision, Diplopia, Discharge, Pain, Redness, Photophobia, Other Ear: Normal. negative: Right, Left, Swelling, Ecchymosis, Hemotypanum, Abrasion , Laceration Nose: Normal. negative: Injected, Discharge, Blood, Other Throat: Normal. negative: Tonsillar Hypertrophy, Red, Exudate, Dry, Other Respiratory: Normal Cardiovascular: Tachycardia. negative: Normal, Bradycardia, Irregular, S3, S4, Systolic, Diastolic, Murmur, Edema, Other : Normal. negative: Dysuria, Hematuria, Frequency, Discharge, Testicular Pain , Bleeding, , Other Auscultation: Bowel Sounds: Normal. negative: Bruit, Absent, Increased, Decreased, High Pitched, Other Palpation: Normal Tenderness: RLQ, LLQ, Epigastric. negative: Normal, Diffuse, RUQ, LUQ, Periumbilical, Suprapubic, Mild, Moderate, Severe, Rebound, Guarding, Rigidity, Other Skin: Normal. negative: Decreased Turgur, Rash, Papular, Macular, Maculopapular , Vesicular, Pustular, Petechial, Red, Tender, Hot, Diaphoresis, Wound, Bruising , Ecchymosis, Other Musculoskeletal: Normal. negative: Right, Left, Shoulder, Clavicle, Arm, Elbow , Forearm, Wrist, Hand, Hip, Thigh, Knee, Leg, Ankle, Foot, Back:Thoracic, Back: Lumbar, Back:Midline, Back:Paraspinous, Pelvis, Swelling, Tender, Deformity, Pulse Deficit, Motor Deficit, Sensory Deficit, Instability, Crepitance Psychiatric: Normal. negative: Anxiety, Depression, Agitation, Other Mood Description: Calm. negative: Angry, Apathetic, Depressed, Fearful, Flat, Happy, Hostile, Sad, Suspicious, Withdrawn, Anxious, Appropriate, Labile Affect: Normal. negative: Angry, Anxious, Depressed, Flat, Hysterical, Quiet, Violent Speech Pattern: Clear, Inappropriate - Laboratory and Diagnostics Result Diagrams: 05/19/17 05:18 05/19/17 05:18 Labs: Laboratory WBC 7.3 X10^3/uL (3.6-10.0) 05/19/17 05:18 RBC 4.33 X10^6/uL (3.5-5.4) 05/19/17 05:18 Hgb 13.6 g/dL (12.0-16.0) 05/19/17 05:18 Hct 39.6 % (36.0-47.0) 05/19/17 05:18 MCV 91.3 fL (80.0-100.0) 05/19/17 05:18 MCH 31.4 pg (27.0-34.0) 05/19/17 05:18 MCHC 34.4 g/dL (33.0-35.0) 05/19/17 05:18 RDW 13.6 % (11.6-16.5) 05/19/17 05:18 Plt Count 229 X10^3/uL (150.0-450.0) 05/19/17 05:18 MPV 7.5 fL (7.4-11.0) 05/19/17 05:18 Neut % 62.4 % (42.0-75.0) 05/19/17 05:18 Lymph % 21.1 % (21.0-51.0) 05/19/17 05:18 [place] % 12.2 % (0.0-13.0) 05/19/17 05:18 Eos % 3.3 % (0.9-2.9) H 05/19/17 05:18 Baso % 1.0 % (0.2-1.0) 05/19/17 05:18 Neut # 4.6 x10^3/uL (2.2-4.8) 05/19/17 05:18 Lymph # 1.5 X10^3/uL (1.3-2.9) 05/19/17 05:18 [place] # 0.9 x10^3/uL (0.3-0.8) H 05/19/17 05:18 Eos # 0.2 x10^3/uL (0.0-0.2) 05/19/17 05:18 Baso # 0.1 X10^3/uL (0.0-0.1) 05/19/17 05:18 Absolute Nucleated RBC 0.1 /100WBC 05/19/17 05:18 INR Target Range - 05/19/17 05:50 INR 3.49 (0.8-1.3) H 05/19/17 05:50 Sodium 140 mmol/L (136-145) 05/19/17 05:18 Corrected Sodium TNP 05/19/17 05:18 Potassium 3.5 mmol/L (3.5-5.1) 05/19/17 05:18 Chloride 106 mmol/L (98-107) 05/19/17 05:18 Carbon Dioxide 26.4 mmol/L (21-32) 05/19/17 05:18 BUN 16 mg/dL (7-18) 05/19/17 05:18 Creatinine 1.00 mg/dL (0.55-1.02) 05/19/17 05:18 Est GFR (MDRD) Af Amer > 60 (>60) 05/19/17 05:18 Est GFR (MDRD) Non-Af 56 (>60) L 05/19/17 05:18 Glucose 98 mg/dL (65-99) 05/19/17 05:18 Calcium 7.9 mg/dL (8.5-10.1) L 05/19/17 05:18 Corrected Calcium 8.5 mg/dL (8.5-10.1) 05/19/17 05:18 Total Bilirubin 0.60 mg/dL (0.2-1.0) 05/19/17 05:18 AST 32 Units/L (15-37) 05/19/17 05:18 ALT 29 Units/L (12-78) 05/19/17 05:18 Alkaline Phosphatase 49 Units/L (46-116) 05/19/17 05:18 Creatine Kinase 54 Units/L (26-192) 05/16/17 01:50 CK-MB (CK-2) < 1.0 ng/mL (0-4.0) 05/16/17 01:50 CK/CKMB % Calc 1.9 % (<4) 05/16/17 01:50 Troponin I < 0.02 ng/mL (0-1.5) 05/16/17 01:50 Total Protein 6.7 g/dL (6.4-8.2) 05/19/17 05:18 Albumin 3.2 g/dL (3.4-5.0) L 05/19/17 05:18 Globulin 3.5 g/dL (2.5-4.5) 05/19/17 05:18 Albumin/Globulin Ratio 0.9 Ratio (1.1-2.1) L 05/19/17 05:18 Amylase 50 Units/L (25-115) 05/16/17 01:50 Lipase 120 Units/L (73-393) 05/16/17 01:50 Specimen Type Clean catch urine 05/16/17 02:21 Urine Color Yellow (YELLOW) 05/16/17 02:21 Urine Appearance Hazy (CLEAR) 05/16/17 02:21 Urine pH 6.0 (5.0 - 8.0) 05/16/17 02:21 Ur Specific [place] 1.015 (1.000-1.030) 05/16/17 02:21 Urine Protein 2+ (NEGATIVE) 05/16/17 02:21 Urine Glucose (UA) Negative (NEGATIVE) 05/16/17 02:21 Urine Ketones Negative (NEGATIVE) 05/16/17 02:21 Urine Occult Blood 2+ (NEGATIVE) 05/16/17 02:21 Urine Nitrite Positive (NEGATIVE) 05/16/17 02:21 Urine Bilirubin Negative (NEGATIVE) 05/16/17 02:21 Urine Urobilinogen Normal (NORMAL) 05/16/17 02:21 Ur Leukocyte Esterase 1+ (NEGATIVE) 05/16/17 02:21 Urine RBC 2-6 /HPF (NEGATIVE) 05/16/17 02:21 Urine WBC 8-12 /HPF (NEGATIVE) 05/16/17 02:21 Ur Squamous Epith Cells Few /HPF (NEGATIVE) 05/16/17 02:21 Urine Bacteria 3+ /HPF (NEGATIVE) 05/16/17 02:21 Ur Culture Indicated? Yes/culture set up 05/16/17 02:21 Gastric Occult Blood Positive (NEGATIVE) A 05/16/17 01:45 Stool pH 3 05/16/17 01:45 Digoxin 1.80 ng/mL (0.9-2) 05/19/17 05:18 H. pylori IgG Antibody Positive (NEGATIVE) A 05/16/17 01:50 - Plan (1) Atrial fibrillation Status: Acute Qualifiers: Atrial fibrillation type: unspecified Qualified Code(s): I48.91 - Unspecified atrial fibrillation Plan: start cardizem 120mg bid, continue to monitor digoxin levels, ekg, irn, monitor patient (2) Urinary tract infection Status: Acute Qualifiers: Urinary tract infection type: site unspecified Hematuria presence: with hematuria Indwelling urinary catheter type: I Encounter type: E Qualified Code(s): N39.0 - Urinary tract infection, site not specified; R31.9 - Hematuria , unspecified Plan: rocephin 1 gm daily, continue to monitor (3) Helicobacter pylori (H. pylori) infection Status: Acute Plan: pepcid 20mg iv bid, continue to monitor
[2017-05-19] MEDS: CARDIZEM SR 120 MG PO SCH ×2 (11:09→20:17)
[2017-05-19] MEDS: ANTIVERT TAB 25 MG PO SCH (20:18)
[2017-05-20 06:26] LABS: BASOPHILS # (AUTO) 0.1 X10^3/uL (0.0-0.1); BASOPHILS % (AUTO) 1.3 % (0.2-1.0); EOSINOPHILS # (AUTO) 0.3 x10^3/uL (0.0-0.2); EOSINOPHILS % (AUTO) 3.7 % (0.9-2.9); HEMATOCRIT 38.7 % (36.0-47.0); HEMOGLOBIN 13.3 g/dL (12.0-16.0); LYMPHOCYTES % (AUTO) 26.4 % (21.0-51.0); MEAN CORPUSCULAR HEMOGLOBIN 31.2 pg (27.0-34.0); MEAN CORPUSCULAR HGB CONC 34.5 g/dL (33.0-35.0); MEAN CORPUSCULAR VOLUME 90.4 fL (80.0-100.0); MEAN PLATELET VOLUME 8.2 fL (7.4-11.0); MONOCYTES # (AUTO) 0.9 x10^3/uL (0.3-0.8); MONOCYTES % (AUTO) 11.5 % (0.0-13.0); NEUTROPHILS # (AUTO) 4.4 x10^3/uL (2.2-4.8); NEUTROPHILS % (AUTO) 57.1 % (42.0-75.0); PLATELET COUNT 227 X10^3/uL (150.0-450.0); RED BLOOD COUNT 4.28 X10^6/uL (3.5-5.4); RED CELL DISTRIBUTION WIDTH 13.9 % (11.6-16.5); WHITE BLOOD COUNT 7.7 X10^3/uL (3.6-10.0)
[2017-05-20 06:28] LABS: ALANINE AMINOTRANSFERASE 35 Units/L (12-78); ALKALINE PHOSPHATASE 51 Units/L (46-116); ASPARTATE AMINO TRANSFERASE 30 Units/L (15-37); BLOOD UREA NITROGEN 26 mg/dL (7-18); CALCIUM 7.7 mg/dL (8.5-10.1); CHLORIDE 105 mmol/L (98-107); COR CA(FOR HYPOALB) 8.5 mg/dL (8.5-10.1); CREATININE 1.38 mg/dL (0.55-1.02); DIGOXIN 1.29 ng/mL (0.9-2); GLUCOSE 106 mg/dL (65-99); SODIUM 141 mmol/L (136-145); TOTAL PROTEIN 6.3 g/dL (6.4-8.2); eGFR BLACK RACES 47 (>60); eGFR NON BLACK RACES 39 (>60)
--- NOTE | 2017-05-20 06:31 | RAD ---
HISTORY: Shortness of breath Study: Chest one view Comparison: May 19, 2017, May 16, 2017 Findings: The patient is status post median sternotomy and CABG. The heart is mildly enlarged. No congestive h eart failure is noted. The arden are normal. The lungs are mildly hyperinflated but free of acute sally eolar infiltrates. The bony thorax is unremarkable. IMPRESSION: Mild cardiomegaly without congestive heart failure Lungs mildly hyperinflated but clear Reported By:
[2017-05-20] MEDS: PEPCID 20 MG IV PREMIX* 20 MG/50 ML BAG IV SCH (09:17)
[2017-05-20] MEDS: CARDIZEM SR 120 MG PO SCH (09:17)
[2017-05-20] MEDS: BETAPACE AF PO SCH (09:17)
[2017-05-20] MEDS: ROCEPHIN VIAL 1 GM 1 GM in NS 50 ML IV + SPIKE MINIBAG* 50 ML IV SCH (10:04)
[2017-05-20 14:55] VITALS: BP 146/68
== END 2017-05-20 14:06 | disposition home or self-care (01) | DRG 309 ==
LOC: ER 00:58 → ICU 07:47
PROVIDERS: ADMIT Internal Medicine; ATTEND Internal Medicine
DX: I48.91 Unspecified atrial fibrillation (principal); N39.0 Urinary tract infection, site not specified; B96.81 Helicobacter pylori [H. pylori] as the cause of diseases classified elsewhere; K29.60 Other gastritis without bleeding; R10.84 Generalized abdominal pain; I10 Essential (primary) hypertension; R94.31 Abnormal electrocardiogram [ECG] [EKG]; R11.2 Nausea with vomiting, unspecified; R06.02 Shortness of breath; R31.9 Hematuria, unspecified; R41.82 Altered mental status, unspecified; B96.29 Other Escherichia coli [E. coli] as the cause of diseases classified elsewhere; R26.89 Other abnormalities of gait and mobility; Z78.1 Physical restraint status
CPT/HCPCS: 36415; 71010; 74022; 80053; 80162; 81001; 82150; 82271; 82550; 82553; 83690; 84484; 85025; 85610; 86677; 87086; 87088; 87186; 93005; 96365; 96367; 96374; 96375; 99231; 99284; 99285; A4222; S0028; J0696; J1160; J1630; J1956; J2405; J3490; J7042

== ENCOUNTER → 2017-07-09 | Outpatient (CLI) | payer OTHER ==
--- NOTE | 2017-07-11 09:16 | MG ---
HISTORY: SCREENING Comparison: Multiple priors dating back to October 24, 2008 FINDINGS: Bilateral CC and MLO projections of the right and left breast were obtained. Scattered fibroglandula r tissue is seen to be present without significant interval change. No suspicious architectural dist ortion, mass or clustered microcalcifications can be observed to suggest malignancy. No skin thicken ing or nipple retraction is appreciated. No pathological lymphadenopathy can be identified. Benign- appearing calcifications are noted within the right and left breast. IMPRESSION: NO RADIOGRAPHIC EVIDENCE OF MALIGNANCY. ACR CATEGORY 2 - benign findings. FOLLOW-UP EXAM 1 YEAR. Diagnostic CAD was utilized and reviewed. * 0 (ZERO) - ASSESSMENT INCOMPLETE; ADDITIONAL IMAGING IS NEEDED. * 1/1 (ONE) - NEGATIVE. * 2/II (TWO) - BENIGN FINDINGS. * 3/III (THREE) - PROBABLY BENIGN FINDING; SHORT INTERVAL FOLLOW-UP SUGGESTED. * 4/IV (FOUR) - SUSPICIOUS ABNORMALITY; BIOPSY SHOULD BE CONSIDERED. * 5/V (FIVE) - HIGHLY SUSPICIOUS OF MALIGNANCY; BIOPSY SHOULD BE PERFORMED. A NEGATIVE X-RAY REPORT SHOULD NOT DELAY BIOPSY IF A DOMINANT OR CLINICALLY SUSPICIOUS MASS IS PRESENT; 4 TO 8 PERCENT OF CANCERS ARE NOT IDENTIFIED BY X-RAY. A NEGA TIVE REPORT MAY REINFORCE THE CLINICAL IMPRESSION. ADENOSIS AND DENSE BREASTS MAY OBSCURE AN UNDERLY ING NEOPLASM. Reported By:
== END ==
LOC: RAD 09:53
PROVIDERS: ATTEND Internal Medicine
DX: Z12.31 Encounter for screening mammogram for malignant neoplasm of breast (principal)
CPT/HCPCS: 77067

== ENCOUNTER → 2017-08-12 | Outpatient (CLI) | payer OTHER | LOC: LAB 10:03 | PROVIDERS: ATTEND Internal Medicine Gastroenterology | DX: K64.0 First degree hemorrhoids (principal) | CPT/HCPCS: 82270 ==

== ENCOUNTER → 2018-01-08 | Outpatient (CLI) | payer OTHER ==
[~2018-01-08] MED LIST: LEXISCAN IV ONE
== END ==
LOC: RAD 08:41
PROVIDERS: ATTEND Internal Medicine Cardiovascular Disease
DX: I25.10 Atherosclerotic heart disease of native coronary artery without angina pectoris (principal)
CPT/HCPCS: 78452; 93017; A4222; A9502; J2785

== ENCOUNTER → 2018-01-15 | Outpatient (CLI) | payer OTHER | LOC: RAD 14:03 | PROVIDERS: ATTEND Internal Medicine Cardiovascular Disease | DX: I25.10 Atherosclerotic heart disease of native coronary artery without angina pectoris (principal) | CPT/HCPCS: 93306 ==

== ENCOUNTER 2018-06-10 12:26 | Inpatient (IN) ==
[2018-06-10 14:45] LABS: BASOPHILS # (AUTO) 0.1 X10^3/uL (0.0-0.1); BASOPHILS % (AUTO) 1.1 % (0.2-1.0); EOSINOPHILS # (AUTO) 0.1 x10^3/uL (0.0-0.2); EOSINOPHILS % (AUTO) 0.6 % (0.9-2.9); HEMATOCRIT 37.4 % (36.0-47.0); HEMOGLOBIN 12.8 g/dL (12.0-16.0); LYMPHOCYTES # (AUTO) 1.7 X10^3/uL (1.3-2.9); LYMPHOCYTES % (AUTO) 14.3 % (21.0-51.0); MEAN CORPUSCULAR HEMOGLOBIN 32.1 pg (27.0-34.0); MEAN CORPUSCULAR HGB CONC 34.3 g/dL (33.0-35.0); MEAN CORPUSCULAR VOLUME 93.7 fL (80.0-100.0); MEAN PLATELET VOLUME 7.9 fL (7.4-11.0); MONOCYTES # (AUTO) 1.2 x10^3/uL (0.3-0.8); MONOCYTES % (AUTO) 10.5 % (0.0-13.0); NEUTROPHILS # (AUTO) 8.5 x10^3/uL (2.2-4.8); NEUTROPHILS % (AUTO) 73.5 % (42.0-75.0); PLATELET COUNT 227 X10^3/uL (150.0-450.0); RED BLOOD COUNT 3.99 X10^6/uL (3.5-5.4); RED CELL DISTRIBUTION WIDTH 13.5 % (11.6-16.5); WHITE BLOOD COUNT 11.6 X10^3/uL (3.6-10.0)
[2018-06-10 15:31] LABS: ALANINE AMINOTRANSFERASE 19 Units/L (12-78); ALBUMIN 3.5 g/dL (3.4-5.0); ALKALINE PHOSPHATASE 50 Units/L (46-116); ASPARTATE AMINO TRANSFERASE 21 Units/L (15-37); BLOOD UREA NITROGEN 36 mg/dL (7-18); CALCIUM 8.8 mg/dL (8.5-10.1); CARBON DIOXIDE 25.4 mmol/L (21-32); CHLORIDE 99 mmol/L (98-107); CKMB % 0.9 % (<4); CREATINE KINASE 138 Units/L (26-192); CREATINE KINASE MB 1.3 ng/mL (0-4.0); CREATININE 1.68 mg/dL (0.55-1.02); SODIUM 136 mmol/L (136-145); TOTAL PROTEIN 7.2 g/dL (6.4-8.2); TROPONIN I < 0.02 ng/mL (0-1.5); eGFR NON BLACK RACES 31 (>60)
[2018-06-10] MEDS: NS 1000 ML 1,000 ML IV SCH (16:00)
--- NOTE | 2018-06-10 16:00 | RAD ---
HISTORY: Falls Study: PA chest Comparison: May 29 Findings: The trachea is midline. The cardiac silhouette is normal status post old sternotomy for coronary art los bypass grafting surgery.. The lungs are clear without focal infiltrate or effusion. The bony th orax is unremarkable. IMPRESSION: 1. No acute cardiopulmonary disease. Reported By:
--- NOTE | 2018-06-10 16:05 | RAD ---
History: Right leg pain after fall Study: Three views right tibia and fibula, overall AP and lateral Findings: There is no fracture or dislocation or periosteal reaction. Impression: Negative Reported By:
--- NOTE | 2018-06-10 16:06 | RAD ---
History: Right foot pain after fall Study: Three views right foot, AP oblique and lateral projections Findings: There is a acute transverse fracture at the base of the 5th metatarsal with a few mm of dis traction. There is dorsal soft tissue swelling. Impression: Fracture at the base of the 5th metatarsal Reported By:
--- NOTE | 2018-06-10 16:07 | RAD ---
History: Fall and right ankle pain graft study three views right ankle including AP oblique and later al projections Findings: There is no ankle fracture or subluxation. The fracture at the base of the 5th metatarsal i s seen in the lateral projection. Impression: 1. Negative right ankle 2. Fracture at the base of the 5th metatarsal Reported By:
--- NOTE | 2018-06-10 16:26 | CT ---
STUDY: CT HEAD WITHOUT CONTRAST HISTORY: Falls. Weakness. Hypertension. Headache. COMPARISON: None. TECHNIQUE: Multiple axial images of the head were obtained from the skull base to the vertex without administration of IV contrast. Automated exposure control (AEC) was utilized to adjust the MA and/or kV. Findings: The sulci, cisterns and ventricles are prominent consistent with diffuse volume loss. There are confluent and scattered foci of low attenuation in the periventricular and subcortical whit e matter of both hemispheres. This is a nonspecific finding which likely represents microangiopathic change in a patient of this age. There is no evidence of acute territorial infarction, hemorrhage, mass, mass effect or midline shift. There are no abnormal extra-axial fluid collections. There is no evidence of acute osseous abnormality or significant soft tissue swelling. IMPRESSION: 1. No evidence of acute intracranial abnormality. 2. Nonspecific white matter change and volume loss as described. 3. If there remains strong clinical concern for acute infarction, then an MRI examination of the brai n could be performed for further evaluation. However, if there are no deficits on neurologic exam, th ere are no abnormalities identified on this study which require immediate imaging follow-up on an asad rgent basis. Follow-up MRI could be considered on an outpatient basis as clinically warranted. Reported By:
[2018-06-10 19:24] LABS: CKMB % 1.1 % (<4); CREATINE KINASE 130 Units/L (26-192); CREATINE KINASE MB 1.4 ng/mL (0-4.0); TROPONIN I < 0.02 ng/mL (0-1.5)
[2018-06-10 22:44] LABS: CREATINE KINASE MB 1.1 ng/mL (0-4.0); TROPONIN I 0.02 ng/mL (0-1.5)
[2018-06-11] MEDS: COUMADIN TAB 5 MG PO SCH ×2 (02:03→21:15)
[2018-06-11] MEDS: NS 1000 ML 1,000 ML IV SCH (03:24)
[2018-06-11 06:26] LABS: BASOPHILS # (AUTO) 0.1 X10^3/uL (0.0-0.1); BASOPHILS % (AUTO) 1.3 % (0.2-1.0); EOSINOPHILS # (AUTO) 0.2 x10^3/uL (0.0-0.2); EOSINOPHILS % (AUTO) 1.6 % (0.9-2.9); HEMATOCRIT 35.8 % (36.0-47.0); HEMOGLOBIN 12.5 g/dL (12.0-16.0); LYMPHOCYTES # (AUTO) 1.3 X10^3/uL (1.3-2.9); LYMPHOCYTES % (AUTO) 13.1 % (21.0-51.0); MEAN CORPUSCULAR HEMOGLOBIN 32.5 pg (27.0-34.0); MEAN CORPUSCULAR HGB CONC 34.8 g/dL (33.0-35.0); MEAN CORPUSCULAR VOLUME 93.4 fL (80.0-100.0); MEAN PLATELET VOLUME 8.2 fL (7.4-11.0); MONOCYTES # (AUTO) 0.8 x10^3/uL (0.3-0.8); MONOCYTES % (AUTO) 8.3 % (0.0-13.0); NEUTROPHILS # (AUTO) 7.2 x10^3/uL (2.2-4.8); NEUTROPHILS % (AUTO) 75.7 % (42.0-75.0); PLATELET COUNT 227 X10^3/uL (150.0-450.0); RED BLOOD COUNT 3.84 X10^6/uL (3.5-5.4); RED CELL DISTRIBUTION WIDTH 13.5 % (11.6-16.5); WHITE BLOOD COUNT 9.6 X10^3/uL (3.6-10.0)
[2018-06-11 06:42] LABS: BILIRUBIN,URINE NEGATIVE (NEGATIVE); BLOOD/HEMOGLOBIN,URINE 1+ (NEGATIVE); GLUCOSE, URINE NEGATIVE (NEGATIVE); KETONES,URINE NEGATIVE (NEGATIVE); LEUKOCYTE ESTERASE ,URINE NEGATIVE (NEGATIVE); NITRITES,URINE NEGATIVE (NEGATIVE); PROTEIN,URINE 1+ (NEGATIVE); UROBILINOGEN,URINE NORMAL (NORMAL)
[2018-06-11 07:11] LABS: CALCIUM 8.4 mg/dL (8.5-10.1); CARBON DIOXIDE 26.2 mmol/L (21-32); COR CA(FOR HYPOALB) 9.2 mg/dL (8.5-10.1); CREATININE 1.37 mg/dL (0.55-1.02); TOTAL PROTEIN 6.6 g/dL (6.4-8.2)
[2018-06-11 07:11] LABS: APPEARANCE,URINE CLEAR (CLEAR); COLOR,URINE YELLOW (YELLOW)
[2018-06-11 07:12] LABS: BACTERIA,URINE TRACE /HPF (NEGATIVE); MUCUS,URINE RARE /HPF (NEGATIVE); RBC,URINE 0-2 /HPF (NONE SEEN); SQUAMOUS EPITHELIAL CELL,UR RARE /HPF (NEGATIVE)
--- NOTE | 2018-06-11 08:06 | DR.UPDATE ---
H&P Update History and Physical Update: WAS SEEN IN THE OFFICE TODAY. A H&P WAS COMPLETED PRIOR TO ADMISSION. PATIENT HAS BEEN SEEN AND EXAMINED WITH NO CHANGES NOTED TO H&P. Changes noted: NO Yes with the following:
[2018-06-11] MEDS ORDERED: POTASSIUM CHL 40 MEQ/NS 0.45% 500 ML IV PRN (08:42)
[2018-06-11] MEDS ORDERED: POTASSIUM CHLORIDE LIQ 20 MEQ UDC PO PRN (08:42)
[2018-06-11] MEDS ORDERED: K-LYTE EFFERVESCENT PO PRN (08:42)
[2018-06-11] MEDS ORDERED: K-RIDER 10 MEQ/NS 100 ML 10 MEQ/100 ML BAG IV PRN (08:42)
[2018-06-11] MEDS ORDERED: POTASSIUM CHL 60 MEQ/NS 0.45% 500 ML IV PRN (08:42)
[2018-06-11] MEDS ORDERED: K-DUR TAB 20 MEQ PO STA (12:04)
[2018-06-11] MEDS: LOVENOX INJ 30 MG SYR SC SCH (12:53)
[2018-06-11] MEDS ORDERED: K-DUR TAB 20 MEQ PO NR (15:00)
[2018-06-11 15:14] VITALS: BMI 26.9
[2018-06-12 05:50] LABS: BASOPHILS # (AUTO) 0.1 X10^3/uL (0.0-0.1); BASOPHILS % (AUTO) 0.9 % (0.2-1.0); EOSINOPHILS # (AUTO) 0.2 x10^3/uL (0.0-0.2); EOSINOPHILS % (AUTO) 2.5 % (0.9-2.9); HEMATOCRIT 29.5 % (36.0-47.0); HEMOGLOBIN 10.4 g/dL (12.0-16.0); LYMPHOCYTES # (AUTO) 1.5 X10^3/uL (1.3-2.9); LYMPHOCYTES % (AUTO) 17.6 % (21.0-51.0); MEAN CORPUSCULAR HGB CONC 35.3 g/dL (33.0-35.0); MEAN CORPUSCULAR VOLUME 93.6 fL (80.0-100.0); MEAN PLATELET VOLUME 7.8 fL (7.4-11.0); MONOCYTES % (AUTO) 11.6 % (0.0-13.0); NEUTROPHILS # (AUTO) 5.6 x10^3/uL (2.2-4.8); NEUTROPHILS % (AUTO) 67.4 % (42.0-75.0); PLATELET COUNT 208 X10^3/uL (150.0-450.0); RED BLOOD COUNT 3.15 X10^6/uL (3.5-5.4); RED CELL DISTRIBUTION WIDTH 13.7 % (11.6-16.5); WHITE BLOOD COUNT 8.4 X10^3/uL (3.6-10.0)
[2018-06-12] MEDS: NS 1000 ML 1,000 ML IV SCH ×2 (05:53→18:20)
[2018-06-12 06:03] LABS: ALANINE AMINOTRANSFERASE 14 Units/L (12-78); ALBUMIN 2.4 g/dL (3.4-5.0); ALKALINE PHOSPHATASE 45 Units/L (46-116); ASPARTATE AMINO TRANSFERASE 17 Units/L (15-37); BLOOD UREA NITROGEN 26 mg/dL (7-18); CALCIUM 7.4 mg/dL (8.5-10.1); CARBON DIOXIDE 25.2 mmol/L (21-32); CHLORIDE 108 mmol/L (98-107); COR CA(FOR HYPOALB) 8.7 mg/dL (8.5-10.1); CREATININE 1.34 mg/dL (0.55-1.02); SODIUM 140 mmol/L (136-145); TOTAL PROTEIN 5.4 g/dL (6.4-8.2); eGFR NON BLACK RACES 40 (>60)
[2018-06-12] MEDS: LOVENOX INJ 30 MG SYR SC SCH (08:00)
[2018-06-12] MEDS ORDERED: TOPROL XL PO SCH (11:00)
[2018-06-12] MEDS ORDERED: MAALOX or MYLANTA PO PRN (11:39)
--- NOTE | 2018-06-12 12:18 | RAD ---
History: Right knee pain Study: Three views right knee, AP lateral and oblique projections Findings: There is no fracture subluxation periosteal reaction or joint effusion. Impression: Negative Reported By:
[2018-06-12] MEDS ORDERED: LANOXIN PO ONE (14:45)
[2018-06-12] MEDS: COUMADIN TAB 5 MG PO SCH (20:52)
[2018-06-12] MEDS ORDERED: COLACE CAP 100 MG PO PRN (20:58)
[2018-06-12] MEDS: MILK OF MAGNESIA PO SCH (22:44)
[2018-06-13 06:27] LABS: BASOPHILS # (AUTO) 0.1 X10^3/uL (0.0-0.1); BASOPHILS % (AUTO) 0.7 % (0.2-1.0); EOSINOPHILS # (AUTO) 0.1 x10^3/uL (0.0-0.2); EOSINOPHILS % (AUTO) 0.8 % (0.9-2.9); HEMATOCRIT 33.9 % (36.0-47.0); HEMOGLOBIN 11.6 g/dL (12.0-16.0); LYMPHOCYTES # (AUTO) 1.7 X10^3/uL (1.3-2.9); LYMPHOCYTES % (AUTO) 17.6 % (21.0-51.0); MEAN CORPUSCULAR HEMOGLOBIN 31.9 pg (27.0-34.0); MEAN CORPUSCULAR HGB CONC 34.1 g/dL (33.0-35.0); MEAN CORPUSCULAR VOLUME 93.6 fL (80.0-100.0); MEAN PLATELET VOLUME 8.2 fL (7.4-11.0); MONOCYTES # (AUTO) 0.9 x10^3/uL (0.3-0.8); MONOCYTES % (AUTO) 9.1 % (0.0-13.0); NEUTROPHILS # (AUTO) 6.9 x10^3/uL (2.2-4.8); NEUTROPHILS % (AUTO) 71.8 % (42.0-75.0); PLATELET COUNT 251 X10^3/uL (150.0-450.0); RED BLOOD COUNT 3.62 X10^6/uL (3.5-5.4); RED CELL DISTRIBUTION WIDTH 13.7 % (11.6-16.5); WHITE BLOOD COUNT 9.6 X10^3/uL (3.6-10.0)
[2018-06-13 06:35] LABS: ALANINE AMINOTRANSFERASE 27 Units/L (12-78); ALBUMIN 2.7 g/dL (3.4-5.0); ALKALINE PHOSPHATASE 52 Units/L (46-116); ASPARTATE AMINO TRANSFERASE 36 Units/L (15-37); BLOOD UREA NITROGEN 18 mg/dL (7-18); CARBON DIOXIDE 24.1 mmol/L (21-32); CHLORIDE 105 mmol/L (98-107); COR NA(FOR HYPERGLY) 138 mmol/L (136-145); CREATININE 1.06 mg/dL (0.55-1.02); SODIUM 138 mmol/L (136-145); TOTAL PROTEIN 6.3 g/dL (6.4-8.2); eGFR NON BLACK RACES 52 (>60)
[2018-06-13] MEDS: LANOXIN PO SCH (09:22)
[2018-06-13] MEDS: BETAPACE AF PO SCH ×2 (09:32→21:32)
[2018-06-13] MEDS: LOVENOX INJ 30 MG SYR SC SCH (09:33)
[2018-06-13] MEDS: MILK OF MAGNESIA PO SCH (09:34)
[2018-06-13] MEDS ORDERED: ZOFRAN TAB 4 MG PO PRN (13:10)
[2018-06-13] MEDS: NORVASC TAB 5 MG PO SCH ×2 (15:51→20:42)
[2018-06-13] MEDS ORDERED: CATAPRES TAB 0.1 MG PO ONE (17:17)
[2018-06-13] MEDS: NS 1000 ML 1,000 ML IV SCH ×2 (17:26→20:50)
[2018-06-13] MEDS: COUMADIN TAB 5 MG PO SCH (20:42)
[2018-06-13] MEDS ORDERED: HALDOL INJ IVP ONE (23:34)
[2018-06-14] MEDS ORDERED: CATAPRES TAB 0.1 MG PO ONE (04:21)
[2018-06-14] MEDS: NS 1000 ML 1,000 ML IV SCH ×3 (05:31→22:14)
[2018-06-14 06:08] LABS: BASOPHILS # (AUTO) 0.1 X10^3/uL (0.0-0.1); BASOPHILS % (AUTO) 0.9 % (0.2-1.0); EOSINOPHILS # (AUTO) 0.1 x10^3/uL (0.0-0.2); EOSINOPHILS % (AUTO) 1.2 % (0.9-2.9); HEMOGLOBIN 11.2 g/dL (12.0-16.0); LYMPHOCYTES # (AUTO) 1.1 X10^3/uL (1.3-2.9); LYMPHOCYTES % (AUTO) 12.1 % (21.0-51.0); MEAN CORPUSCULAR HEMOGLOBIN 32.4 pg (27.0-34.0); MEAN CORPUSCULAR VOLUME 92.7 fL (80.0-100.0); MEAN PLATELET VOLUME 8.1 fL (7.4-11.0); MONOCYTES # (AUTO) 0.8 x10^3/uL (0.3-0.8); MONOCYTES % (AUTO) 8.5 % (0.0-13.0); NEUTROPHILS # (AUTO) 7.2 x10^3/uL (2.2-4.8); NEUTROPHILS % (AUTO) 77.3 % (42.0-75.0); PLATELET COUNT 255 X10^3/uL (150.0-450.0); RED BLOOD COUNT 3.45 X10^6/uL (3.5-5.4); RED CELL DISTRIBUTION WIDTH 13.8 % (11.6-16.5); WHITE BLOOD COUNT 9.3 X10^3/uL (3.6-10.0)
[2018-06-14 06:30] LABS: ALANINE AMINOTRANSFERASE 29 Units/L (12-78); ALBUMIN 2.8 g/dL (3.4-5.0); ALKALINE PHOSPHATASE 53 Units/L (46-116); ASPARTATE AMINO TRANSFERASE 29 Units/L (15-37); BLOOD UREA NITROGEN 13 mg/dL (7-18); CALCIUM 8.1 mg/dL (8.5-10.1); CARBON DIOXIDE 23.9 mmol/L (21-32); CHLORIDE 104 mmol/L (98-107); COR CA(FOR HYPOALB) 9.1 mg/dL (8.5-10.1); COR NA(FOR HYPERGLY) 139 mmol/L (136-145); CREATININE 0.83 mg/dL (0.55-1.02); SODIUM 138 mmol/L (136-145); TOTAL PROTEIN 6.4 g/dL (6.4-8.2); eGFR NON BLACK RACES > 60 (>60)
[2018-06-14] MEDS: LANOXIN PO SCH (11:08)
[2018-06-14] MEDS: LOVENOX INJ 30 MG SYR SC SCH (11:10)
[2018-06-14] MEDS: MILK OF MAGNESIA PO SCH (11:11)
[2018-06-14] MEDS: BETAPACE AF PO SCH ×2 (11:11→21:12)
[2018-06-14] MEDS: COUMADIN TAB 5 MG PO SCH (20:46)
[2018-06-15 05:18] LABS: BASOPHILS # (AUTO) 0.1 X10^3/uL (0.0-0.1); BASOPHILS % (AUTO) 1.1 % (0.2-1.0); EOSINOPHILS # (AUTO) 0.2 x10^3/uL (0.0-0.2); EOSINOPHILS % (AUTO) 2.7 % (0.9-2.9); HEMATOCRIT 29.1 % (36.0-47.0); HEMOGLOBIN 10.2 g/dL (12.0-16.0); LYMPHOCYTES # (AUTO) 1.2 X10^3/uL (1.3-2.9); LYMPHOCYTES % (AUTO) 17.5 % (21.0-51.0); MEAN CORPUSCULAR HEMOGLOBIN 32.1 pg (27.0-34.0); MEAN CORPUSCULAR HGB CONC 35.1 g/dL (33.0-35.0); MEAN CORPUSCULAR VOLUME 91.5 fL (80.0-100.0); MEAN PLATELET VOLUME 8.2 fL (7.4-11.0); MONOCYTES # (AUTO) 0.8 x10^3/uL (0.3-0.8); MONOCYTES % (AUTO) 11.3 % (0.0-13.0); NEUTROPHILS # (AUTO) 4.8 x10^3/uL (2.2-4.8); NEUTROPHILS % (AUTO) 67.4 % (42.0-75.0); PLATELET COUNT 216 X10^3/uL (150.0-450.0); RED BLOOD COUNT 3.18 X10^6/uL (3.5-5.4); RED CELL DISTRIBUTION WIDTH 13.7 % (11.6-16.5); WHITE BLOOD COUNT 7.1 X10^3/uL (3.6-10.0)
[2018-06-15 05:36] LABS: ALANINE AMINOTRANSFERASE 23 Units/L (12-78); ALBUMIN 2.4 g/dL (3.4-5.0); ALKALINE PHOSPHATASE 48 Units/L (46-116); ASPARTATE AMINO TRANSFERASE 23 Units/L (15-37); BLOOD UREA NITROGEN 20 mg/dL (7-18); CALCIUM 7.8 mg/dL (8.5-10.1); CARBON DIOXIDE 23.4 mmol/L (21-32); CHLORIDE 103 mmol/L (98-107); COR CA(FOR HYPOALB) 9.1 mg/dL (8.5-10.1); CREATININE 1.11 mg/dL (0.55-1.02); DIGOXIN 1.25 ng/mL (0.9-2); SODIUM 135 mmol/L (136-145); TOTAL PROTEIN 5.5 g/dL (6.4-8.2); eGFR NON BLACK RACES 49 (>60)
[2018-06-15] MEDS: MILK OF MAGNESIA PO SCH (08:32)
[2018-06-15] MEDS: LANOXIN PO SCH (08:32)
[2018-06-15] MEDS: BETAPACE AF PO SCH (08:36)
[2018-06-15] MEDS: LOVENOX INJ 30 MG SYR SC SCH (08:37)
[2018-06-15] MEDS: PATIENT'S HOME MEDICATION PO SCH ×2 (10:07→21:20)
--- NOTE | 2018-06-15 10:27 | PCM.PROG ---
Progress Note - Progress Note for Day of Date of Exam: 06/11/18 - Subjective Subjective: WAS ADMITTED FOR FALLS, SYNCOPE, WEAKNESS, DIZZINESS, AND HYPOTENSION. TODAY, SHE IS ALERT AND ORIENTED, LYING IN BED ON MORNING ROUNDS. SHE CONTINUES WITH COMPLAINTS OF GENERALIZED WEAKNESS AND DIZZINESS AT TIMES. SHE ALSO CONTINUES WITH COMPLAINTS OF RIGHT FOOT PAIN AND SWELLING. ON EXAMINATION, HEART IS REGULAR IN RATE AND RHYTHM. BILATERAL LUNGS ARE NOTED WITH DIMINISHED LUNG SOUNDS THROUGHOUT. ABDOMEN IS ROUND, SOFT, AND NON-TENDER WITH NORMAL BOWEL SOUNDS NOTED IN ALL QUADRANTS. RIGHT FOOT IS NOTED WITH BRUISING AND 1+ PITTING EDEMA. HER VITALS THIS MORNING ARE 98.6-82-20-97%-192/ 81. LABS WERE OBTAINED. ABNORMAL LAB VALUES INCLUDE THE FOLLOWING: HCT 35.8, POTASSIUM 3.2, BUN 30, CREATININE 1.37, GLUCOSE 112, CALCIUM 8.4, ALBUMIN 3.0. TODAY, WE WILL CONSULT AND OBTAIN A BRAIN MRI WITHOUT CONTRAST. WE WILL ORDER FOR PATIENT TO RECEIVE PHYSICAL THERAPY AND REPLACE HER POTASSIUM WITH THE PROTOCOL. WE PLAN TO HOLD HER BLOOD PRESSURE MEDICATIONS AT THIS TIME AND OBTAIN ORTHOSTATIC VITALS. OTHERWISE, WE WILL FOLLOW-UP WITH AM LABS AND CONTINUE TO MONITOR PATIENT. - Past Medical Family Social History Past Med/Fam/Surg Hx: No changes since H&P Allergies: Allergies amiodarone Allergy (Verified 05/16/17 21:20) clonidine [From Catapres] Allergy (Verified 06/14/18 10:29) prednisone Allergy (Verified 05/16/17 21:20) amoxicillin Adverse Reaction (Verified 05/16/17 21:20) cetirizine [From Zyrtec] Adverse Reaction (Verified 05/16/17 21:20) clavulanic acid Adverse Reaction (Verified 05/16/17 21:20) erythromycin base [From Staticin] Adverse Reaction (Verified 05/16/17 21:20) ethyl alcohol [From Staticin] Adverse Reaction (Verified 05/16/17 21:20) Sulfa (Sulfonamide Antibiotics) [SULFA] Adverse Reaction (Verified 05/16/17 21: 20) tramadol Adverse Reaction (Verified 05/16/17 21:20) zolpidem Adverse Reaction (Verified 05/16/17 21:20) - Review of Systems ROS: No change since H&P - Vital Signs and I&O's Vital Signs: Temperature 98.3 F Pulse Rate [Left Brachial] 122 Pulse Rate 160 Respiratory Rate 20 Blood Pressure [Left Arm] 130/74 Blood Pressure [Right Arm] 119/61 Blood Pressure 146/68 O2 Sat by Pulse Oximetry 98 Intake and Output: Intake & Output 06/12/18 06/13/18 06/14/18 06/15/18 11:59 11:59 11:59 11:59 Intake Total 4400 / 4400 2085 / 2085 2970 / 2970 2550 / 2550 Output Total 1000 / 1000 3100 / 3100 600 / 600 0 / 0 Balance 3400 / 3400 -1015 / -1015 2370 / 2370 2550 / 2550 - Physical Exam Oriented: Normal Eyes: Normal Ear: Normal Nose: Normal Throat: Normal Respiratory: Generalized, Diminished Cardiovascular: Normal, Edema. negative: S3, S4, Murmur (RIGHT FOOT ) : Normal Auscultation: Bowel Sounds: Normal Palpation: Normal Tenderness: Normal Skin: Bruising (RIGHT FOOT/ANKLE ) Musculoskeletal: Right, Foot, Swelling, Tender Psychiatric: Normal Mood Description: Calm Affect: Normal Speech Pattern: Appropriate - Laboratory and Diagnostics Result Diagrams: 06/15/18 04:10 06/15/18 04:10 Labs: 06/11/18 06:27 Urine,Clean Catch Urine Culture - Final Laboratory WBC 7.1 X10^3/uL (3.6-10.0) 06/15/18 04:10 RBC 3.18 X10^6/uL (3.5-5.4) L 06/15/18 04:10 Hgb 10.2 g/dL (12.0-16.0) L 06/15/18 04:10 Hct 29.1 % (36.0-47.0) L 06/15/18 04:10 MCV 91.5 fL (80.0-100.0) 06/15/18 04:10 MCH 32.1 pg (27.0-34.0) 06/15/18 04:10 MCHC 35.1 g/dL (33.0-35.0) H 06/15/18 04:10 RDW 13.7 % (11.6-16.5) 06/15/18 04:10 Plt Count 216 X10^3/uL (150.0-450.0) 06/15/18 04:10 MPV 8.2 fL (7.4-11.0) 06/15/18 04:10 Neut % (Auto) 67.4 % (42.0-75.0) 06/15/18 04:10 Lymph % (Auto) 17.5 % (21.0-51.0) L 06/15/18 04:10 [place] % (Auto) 11.3 % (0.0-13.0) 06/15/18 04:10 Eos % (Auto) 2.7 % (0.9-2.9) 06/15/18 04:10 Baso % (Auto) 1.1 % (0.2-1.0) H 06/15/18 04:10 Neut # (Auto) 4.8 x10^3/uL (2.2-4.8) 06/15/18 04:10 Lymph # (Auto) 1.2 X10^3/uL (1.3-2.9) L 06/15/18 04:10 [place] # (Auto) 0.8 x10^3/uL (0.3-0.8) 06/15/18 04:10 Eos # (Auto) 0.2 x10^3/uL (0.0-0.2) 06/15/18 04:10 Baso # (Auto) 0.1 X10^3/uL (0.0-0.1) 06/15/18 04:10 Absolute Nucleated RBC 0.0 /100WBC 06/15/18 04:10 INR Target Range - 06/13/18 05:50 INR 1.17 (0.8-1.3) 06/13/18 05:50 Sodium 135 mmol/L (136-145) L 06/15/18 04:10 Corrected Sodium TNP 06/15/18 04:10 Potassium 3.5 mmol/L (3.5-5.1) 06/15/18 04:10 Chloride 103 mmol/L (98-107) 06/15/18 04:10 Carbon Dioxide 23.4 mmol/L (21-32) 06/15/18 04:10 BUN 20 mg/dL (7-18) H 06/15/18 04:10 Creatinine 1.11 mg/dL (0.55-1.02) H 06/15/18 04:10 Est GFR (MDRD) Af Amer 60 (>60) 06/15/18 04:10 Est GFR (MDRD) Non-Af 49 (>60) L 06/15/18 04:10 Glucose 97 mg/dL (65-99) 06/15/18 04:10 Calcium 7.8 mg/dL (8.5-10.1) L 06/15/18 04:10 Corrected Calcium 9.1 mg/dL (8.5-10.1) 06/15/18 04:10 Magnesium 2.2 mg/dL (1.7-2.9) 06/11/18 05:47 Total Bilirubin 0.40 mg/dL (0.2-1.0) 06/15/18 04:10 AST 23 Units/L (15-37) 06/15/18 04:10 ALT 23 Units/L (12-78) 06/15/18 04:10 Alkaline Phosphatase 48 Units/L (46-116) 06/15/18 04:10 Creatine Kinase 115 Units/L (26-192) 06/10/18 22:04 CK-MB (CK-2) 1.1 ng/mL (0-4.0) 06/10/18 22:04 CK/CKMB % Calc 1.0 % (<4) 06/10/18 22:04 Troponin I 0.02 ng/mL (0-1.5) 06/10/18 22:04 Total Protein 5.5 g/dL (6.4-8.2) L 06/15/18 04:10 Albumin 2.4 g/dL (3.4-5.0) L 06/15/18 04:10 Globulin 3.1 g/dL (2.5-4.5) 06/15/18 04:10 Albumin/Globulin Ratio 0.8 Ratio (1.1-2.1) L 06/15/18 04:10 Specimen Type Catherized urine 06/11/18 06:27 Urine Color Yellow (YELLOW) 06/11/18 06:27 Urine Appearance Clear (CLEAR) 06/11/18 06:27 Urine pH 6.0 (5.0 - 8.0) 06/11/18 06:27 Ur Specific [place] 1.010 (1.000-1.030) 06/11/18 06:27 Urine Protein 1+ (NEGATIVE) 06/11/18 06:27 Urine Glucose (UA) Negative (NEGATIVE) 06/11/18 06:27 Urine Ketones Negative (NEGATIVE) 06/11/18 06:27 Urine Occult Blood 1+ (NEGATIVE) 06/11/18 06:27 Urine Nitrite Negative (NEGATIVE) 06/11/18 06:27 Urine Bilirubin Negative (NEGATIVE) 06/11/18 06:27 Urine Urobilinogen Normal (NORMAL) 06/11/18 06:27 Ur Leukocyte Esterase Negative (NEGATIVE) 06/11/18 06:27 Urine RBC 0-2 /HPF (NONE SEEN) 06/11/18 06:27 Urine WBC 0-2 /HPF (NONE SEEN) 06/11/18 06:27 Ur Squamous Epith Cells Rare /HPF (NEGATIVE) 06/11/18 06:27 Urine Bacteria Trace /HPF (NEGATIVE) 06/11/18 06:27 Urine Mucus Rare /HPF (NEGATIVE) 06/11/18 06:27 Ur Culture Indicated? Yes/culture set up 06/11/18 06:27 Digoxin 1.25 ng/mL (0.9-2) 06/15/18 04:10 - Plan (1) Syncope Status: Acute (2) Generalized weakness Status: Acute Plan: NORMAL SALINE AT 80ML/HR, TELEMETRY, OBTAIN BRAIN MRI, CONTINUE TO MONITOR (3) Hypotension Status: Acute Qualifiers: Hypotension type: unspecified hypotension type Qualified Code(s): I95.9 - Hypotension, unspecified Plan: NORMAL SALINE AT 80ML/HR, OBTAIN ORTHOSTATICS, HOLD ANTI-HYPERTENSIVES, CONTINUE TO MONITOR (4) Metatarsal bone fracture Status: Acute Qualifiers: Metatarsal bone: fifth Fracture type: closed Fracture alignment: displaced Laterality: right Fracture healing: with routine healing Plan: CONSULT , PAIN CONTROL, CONTINUE TO MONITOR (5) Atrial fibrillation Status: Chronic Qualifiers: Atrial fibrillation type: chronic Qualified Code(s): I48.2 - Chronic atrial fibrillation Plan: CONTINUE COUMADIN, CONTINUE TO MONITOR (6) Hypokalemia Status: Acute Plan: POTASSIUM REPLACEMENT WITH PROTOCOL
--- NOTE | 2018-06-15 10:42 | PCM.PROG ---
Progress Note - Progress Note for Day of Date of Exam: 06/12/18 - Subjective Subjective: WAS ADMITTED FOR FALLS, SYNCOPE, WEAKNESS, DIZZINESS, AND HYPOTENSION. TODAY, SHE IS ALERT AND ORIENTED, LYING IN BED ON MORNING ROUNDS. SHE CONTINUES WITH COMPLAINTS OF GENERALIZED WEAKNESS. SHE ALSO CONTINUES WITH COMPLAINTS OF RIGHT FOOT PAIN AND SWELLING. SHE ALSO REPORTS PAIN TO THE RIGHT KNEE TODAY. ON EXAMINATION, HEART IS REGULAR IN RATE AND RHYTHM. BILATERAL LUNGS ARE NOTED WITH DIMINISHED LUNG SOUNDS THROUGHOUT. ABDOMEN IS ROUND, SOFT, AND NON-TENDER WITH NORMAL BOWEL SOUNDS NOTED IN ALL QUADRANTS. RIGHT FOOT CONTINUES WITH BRUISING AND 1+ PITTING EDEMA. HER VITALS THIS MORNING ARE 97.6-88-20-96%-151/67. LABS WERE OBTAINED. ABNORMAL LAB VALUES INCLUDE THE FOLLOWING: RBC 3.15, HGB 10.4, HCT 29.5, CHLORIDE 108, BUN 26, CREATININE 1.34, GLUCOSE 108, CALCIUM 7.4, ALK PHOS 45, TOTAL PROTEIN 5.4, ALBUMIN 2.4. ORTHOSTATICS WERE OBTAINED YESTERDAY AND REVEALED A DROP IN BLOOD PRESSURE FROM 114/58 TO 83/48 UPON STANDING. THIS COULD EXPLAIN THE EPISODES OF DIZZINESS AND SYNCOPE. 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 CONSULTED WITH PATIENT AND RECOMMENDED A BOOT WITH NON-WEIGHT BEARING ON THE RIGHT FOOT FOR APPROXIMATELY TWO MONTHS. SHE WILL REQUIRE A WALKER AND A BEDSIDE COMMODE AT HOME. PATIENT REQUIRES MODERATE ASSISTANCE WHEN AMBULATING. TODAY, WE WILL CONTINUE WITH PHYSICAL THERAPY AND CURRENT PLAN OF CARE. OTHERWISE, WE WILL FOLLOW-UP WITH AM LABS AND CONTINUE TO MONITOR PATIENT. - Past Medical Family Social History Past Med/Fam/Surg Hx: No changes since H&P Allergies: Allergies amiodarone Allergy (Verified 05/16/17 21:20) clonidine [From Catapres] Allergy (Verified 06/14/18 10:29) prednisone Allergy (Verified 05/16/17 21:20) amoxicillin Adverse Reaction (Verified 05/16/17 21:20) cetirizine [From Zyrtec] Adverse Reaction (Verified 05/16/17 21:20) clavulanic acid Adverse Reaction (Verified 05/16/17 21:20) erythromycin base [From Staticin] Adverse Reaction (Verified 05/16/17 21:20) ethyl alcohol [From Staticin] Adverse Reaction (Verified 05/16/17 21:20) Sulfa (Sulfonamide Antibiotics) [SULFA] Adverse Reaction (Verified 05/16/17 21: 20) tramadol Adverse Reaction (Verified 05/16/17 21:20) zolpidem Adverse Reaction (Verified 05/16/17 21:20) - Review of Systems ROS: No change since H&P - Vital Signs and I&O's Vital Signs: Temperature 98.3 F Pulse Rate [Left Brachial] 122 Pulse Rate 160 Respiratory Rate 20 Blood Pressure [Left Arm] 130/74 Blood Pressure [Right Arm] 119/61 Blood Pressure 146/68 O2 Sat by Pulse Oximetry 98 Intake and Output: Intake & Output 06/12/18 06/13/18 06/14/18 06/15/18 11:59 11:59 11:59 11:59 Intake Total 4400 / 4400 2085 / 2085 2970 / 2970 2550 / 2550 Output Total 1000 / 1000 3100 / 3100 600 / 600 0 / 0 Balance 3400 / 3400 -1015 / -1015 2370 / 2370 2550 / 2550 - Physical Exam Oriented: Normal Eyes: Normal Ear: Normal Nose: Normal Throat: Normal Respiratory: Generalized, Diminished Cardiovascular: Normal, Edema. negative: S3, S4, Murmur (RIGHT FOOT ) : Normal Auscultation: Bowel Sounds: Normal Palpation: Normal Tenderness: Normal Skin: Bruising (RIGHT FOOT/ANKLE ) Musculoskeletal: Right, Foot, Swelling, Tender Psychiatric: Normal Mood Description: Calm Affect: Normal Speech Pattern: Appropriate - Laboratory and Diagnostics Result Diagrams: 06/15/18 04:10 06/15/18 04:10 Labs: 06/11/18 06:27 Urine,Clean Catch Urine Culture - Final Laboratory WBC 7.1 X10^3/uL (3.6-10.0) 06/15/18 04:10 RBC 3.18 X10^6/uL (3.5-5.4) L 06/15/18 04:10 Hgb 10.2 g/dL (12.0-16.0) L 06/15/18 04:10 Hct 29.1 % (36.0-47.0) L 06/15/18 04:10 MCV 91.5 fL (80.0-100.0) 06/15/18 04:10 MCH 32.1 pg (27.0-34.0) 06/15/18 04:10 MCHC 35.1 g/dL (33.0-35.0) H 06/15/18 04:10 RDW 13.7 % (11.6-16.5) 06/15/18 04:10 Plt Count 216 X10^3/uL (150.0-450.0) 06/15/18 04:10 MPV 8.2 fL (7.4-11.0) 06/15/18 04:10 Neut % (Auto) 67.4 % (42.0-75.0) 06/15/18 04:10 Lymph % (Auto) 17.5 % (21.0-51.0) L 06/15/18 04:10 [place] % (Auto) 11.3 % (0.0-13.0) 06/15/18 04:10 Eos % (Auto) 2.7 % (0.9-2.9) 06/15/18 04:10 Baso % (Auto) 1.1 % (0.2-1.0) H 06/15/18 04:10 Neut # (Auto) 4.8 x10^3/uL (2.2-4.8) 06/15/18 04:10 Lymph # (Auto) 1.2 X10^3/uL (1.3-2.9) L 06/15/18 04:10 [place] # (Auto) 0.8 x10^3/uL (0.3-0.8) 06/15/18 04:10 Eos # (Auto) 0.2 x10^3/uL (0.0-0.2) 06/15/18 04:10 Baso # (Auto) 0.1 X10^3/uL (0.0-0.1) 06/15/18 04:10 Absolute Nucleated RBC 0.0 /100WBC 06/15/18 04:10 INR Target Range - 06/13/18 05:50 INR 1.17 (0.8-1.3) 06/13/18 05:50 Sodium 135 mmol/L (136-145) L 06/15/18 04:10 Corrected Sodium TNP 06/15/18 04:10 Potassium 3.5 mmol/L (3.5-5.1) 06/15/18 04:10 Chloride 103 mmol/L (98-107) 06/15/18 04:10 Carbon Dioxide 23.4 mmol/L (21-32) 06/15/18 04:10 BUN 20 mg/dL (7-18) H 06/15/18 04:10 Creatinine 1.11 mg/dL (0.55-1.02) H 06/15/18 04:10 Est GFR (MDRD) Af Amer 60 (>60) 06/15/18 04:10 Est GFR (MDRD) Non-Af 49 (>60) L 06/15/18 04:10 Glucose 97 mg/dL (65-99) 06/15/18 04:10 Calcium 7.8 mg/dL (8.5-10.1) L 06/15/18 04:10 Corrected Calcium 9.1 mg/dL (8.5-10.1) 06/15/18 04:10 Magnesium 2.2 mg/dL (1.7-2.9) 06/11/18 05:47 Total Bilirubin 0.40 mg/dL (0.2-1.0) 06/15/18 04:10 AST 23 Units/L (15-37) 06/15/18 04:10 ALT 23 Units/L (12-78) 06/15/18 04:10 Alkaline Phosphatase 48 Units/L (46-116) 06/15/18 04:10 Creatine Kinase 115 Units/L (26-192) 06/10/18 22:04 CK-MB (CK-2) 1.1 ng/mL (0-4.0) 06/10/18 22:04 CK/CKMB % Calc 1.0 % (<4) 06/10/18 22:04 Troponin I 0.02 ng/mL (0-1.5) 06/10/18 22:04 Total Protein 5.5 g/dL (6.4-8.2) L 06/15/18 04:10 Albumin 2.4 g/dL (3.4-5.0) L 06/15/18 04:10 Globulin 3.1 g/dL (2.5-4.5) 06/15/18 04:10 Albumin/Globulin Ratio 0.8 Ratio (1.1-2.1) L 06/15/18 04:10 Specimen Type Catherized urine 06/11/18 06:27 Urine Color Yellow (YELLOW) 06/11/18 06:27 Urine Appearance Clear (CLEAR) 06/11/18 06:27 Urine pH 6.0 (5.0 - 8.0) 06/11/18 06:27 Ur Specific [place] 1.010 (1.000-1.030) 06/11/18 06:27 Urine Protein 1+ (NEGATIVE) 06/11/18 06:27 Urine Glucose (UA) Negative (NEGATIVE) 06/11/18 06:27 Urine Ketones Negative (NEGATIVE) 06/11/18 06:27 Urine Occult Blood 1+ (NEGATIVE) 06/11/18 06:27 Urine Nitrite Negative (NEGATIVE) 06/11/18 06:27 Urine Bilirubin Negative (NEGATIVE) 06/11/18 06:27 Urine Urobilinogen Normal (NORMAL) 06/11/18 06:27 Ur Leukocyte Esterase Negative (NEGATIVE) 06/11/18 06:27 Urine RBC 0-2 /HPF (NONE SEEN) 06/11/18 06:27 Urine WBC 0-2 /HPF (NONE SEEN) 06/11/18 06:27 Ur Squamous Epith Cells Rare /HPF (NEGATIVE) 06/11/18 06:27 Urine Bacteria Trace /HPF (NEGATIVE) 06/11/18 06:27 Urine Mucus Rare /HPF (NEGATIVE) 06/11/18 06:27 Ur Culture Indicated? Yes/culture set up 06/11/18 06:27 Digoxin 1.25 ng/mL (0.9-2) 06/15/18 04:10 - Plan (1) Syncope Status: Acute Qualifiers: Syncope type: unspecified Qualified Code(s): R55 - Syncope and collapse Plan: TELEMETRY, CONTINUE TO MONITOR (2) Generalized weakness Status: Acute Plan: NORMAL SALINE AT 80ML/HR, TELEMETRY, CONTINUE TO MONITOR (3) Hypotension Status: Acute Qualifiers: Hypotension type: orthostatic hypotension Qualified Code(s): I95.1 - Orthostatic hypotension Plan: NORMAL SALINE AT 80ML/HR, HOLD ANTI-HYPERTENSIVES, CONTINUE TO MONITOR (4) Metatarsal bone fracture Status: Acute Qualifiers: Metatarsal bone: fifth Fracture type: closed Fracture alignment: displaced Laterality: right Fracture healing: with routine healing Plan: ORTHO BOOT, PAIN CONTROL, CONTINUE TO MONITOR (5) Atrial fibrillation Status: Chronic Qualifiers: Atrial fibrillation type: chronic Qualified Code(s): I48.2 - Chronic atrial fibrillation Plan: CONTINUE COUMADIN, CONTINUE TO MONITOR
--- NOTE | 2018-06-15 11:45 | PCM.PROG ---
Progress Note - Progress Note for Day of Date of Exam: 06/13/18 - Subjective Subjective: WAS ADMITTED FOR FALLS, SYNCOPE, WEAKNESS, DIZZINESS, AND HYPOTENSION. TODAY, SHE IS ALERT AND ORIENTED, LYING IN BED ON MORNING ROUNDS. SHE CONTINUES WITH COMPLAINTS OF GENERALIZED WEAKNESS AND RIGHT FOOT AND KNEE PAIN. SHE WAS NOTED WITH AN INCREASE IN HEART RATE YESTERDAY AFTERNOON AND WAS STARTED ON LOPRESSOR. ON EXAMINATION, SHE CONTINUES TO BE TACHYCARDIC WITH HEART RATE NOTED TO BE IN THE 120S. CHEMISTRY INTERN REVEALS ATRIAL FIBRILLATION. BILATERAL LUNGS ARE NOTED WITH DIMINISHED LUNG SOUNDS THROUGHOUT. ABDOMEN IS ROUND, SOFT, AND NON-TENDER WITH NORMAL BOWEL SOUNDS NOTED IN ALL QUADRANTS. RIGHT FOOT CONTINUES WITH BRUISING AND 1+ PITTING EDEMA. HER VITALS THIS MORNING ARE 97.5-128-20-93%[place]-136/74. LABS WERE OBTAINED. ABNORMAL LAB VALUES INCLUDE THE FOLLOWING: HGB 11.6, HCT 33.9, CREATININE 1.06, GLUCOSE 119, CALCIUM 8.0, TOTAL PROTEIN 6.3, ALBUMIN 2.7. URINE CULTURE REPORTS NO GROWTH. TODAY, WE WILL DISCONTINUE THE LOPRESSOR AND START SOTOLOL 40MG PO BID. OTHERWISE, WE WILL CONTINUE WITH PHYSICAL THERAPY AND CURRENT PLAN OF CARE. WE WILL FOLLOW-UP WITH AM LABS AND CONTINUE TO MONITOR PATIENT. - Past Medical Family Social History Past Med/Fam/Surg Hx: No changes since H&P Allergies: Allergies amiodarone Allergy (Verified 05/16/17 21:20) clonidine [From Catapres] Allergy (Verified 06/14/18 10:29) prednisone Allergy (Verified 05/16/17 21:20) amoxicillin Adverse Reaction (Verified 05/16/17 21:20) cetirizine [From Zyrtec] Adverse Reaction (Verified 05/16/17 21:20) clavulanic acid Adverse Reaction (Verified 05/16/17 21:20) erythromycin base [From Staticin] Adverse Reaction (Verified 05/16/17 21:20) ethyl alcohol [From Staticin] Adverse Reaction (Verified 05/16/17 21:20) Sulfa (Sulfonamide Antibiotics) [SULFA] Adverse Reaction (Verified 05/16/17 21: 20) tramadol Adverse Reaction (Verified 05/16/17 21:20) zolpidem Adverse Reaction (Verified 05/16/17 21:20) - Review of Systems ROS: No change since H&P - Vital Signs and I&O's Vital Signs: Temperature 98.3 F Pulse Rate [Left Brachial] 122 Pulse Rate 160 Respiratory Rate 20 Blood Pressure [Left Arm] 130/74 Blood Pressure [Right Arm] 119/61 Blood Pressure 146/68 O2 Sat by Pulse Oximetry 98 Intake and Output: Intake & Output 06/12/18 06/13/18 06/14/18 06/15/18 11:59 11:59 11:59 11:59 Intake Total 4400 / 4400 2085 / 2085 2970 / 2970 2550 / 2550 Output Total 1000 / 1000 3100 / 3100 600 / 600 0 / 0 Balance 3400 / 3400 -1015 / -1015 2370 / 2370 2550 / 2550 - Physical Exam Oriented: Normal Eyes: Normal Ear: Normal Nose: Normal Throat: Normal Respiratory: Generalized, Diminished Cardiovascular: Tachycardia, Edema. negative: S3, S4, Murmur (RIGHT FOOT ) : Normal Auscultation: Bowel Sounds: Normal Palpation: Normal Tenderness: Normal Skin: Bruising (RIGHT FOOT/ANKLE ) Musculoskeletal: Right, Foot, Swelling, Tender Psychiatric: Normal Mood Description: Calm Affect: Normal Speech Pattern: Appropriate - Laboratory and Diagnostics Result Diagrams: 06/15/18 04:10 06/15/18 04:10 Labs: 06/11/18 06:27 Urine,Clean Catch Urine Culture - Final Laboratory WBC 7.1 X10^3/uL (3.6-10.0) 06/15/18 04:10 RBC 3.18 X10^6/uL (3.5-5.4) L 06/15/18 04:10 Hgb 10.2 g/dL (12.0-16.0) L 06/15/18 04:10 Hct 29.1 % (36.0-47.0) L 06/15/18 04:10 MCV 91.5 fL (80.0-100.0) 06/15/18 04:10 MCH 32.1 pg (27.0-34.0) 06/15/18 04:10 MCHC 35.1 g/dL (33.0-35.0) H 06/15/18 04:10 RDW 13.7 % (11.6-16.5) 06/15/18 04:10 Plt Count 216 X10^3/uL (150.0-450.0) 06/15/18 04:10 MPV 8.2 fL (7.4-11.0) 06/15/18 04:10 Neut % (Auto) 67.4 % (42.0-75.0) 06/15/18 04:10 Lymph % (Auto) 17.5 % (21.0-51.0) L 06/15/18 04:10 [place] % (Auto) 11.3 % (0.0-13.0) 06/15/18 04:10 Eos % (Auto) 2.7 % (0.9-2.9) 06/15/18 04:10 Baso % (Auto) 1.1 % (0.2-1.0) H 06/15/18 04:10 Neut # (Auto) 4.8 x10^3/uL (2.2-4.8) 06/15/18 04:10 Lymph # (Auto) 1.2 X10^3/uL (1.3-2.9) L 06/15/18 04:10 [place] # (Auto) 0.8 x10^3/uL (0.3-0.8) 06/15/18 04:10 Eos # (Auto) 0.2 x10^3/uL (0.0-0.2) 06/15/18 04:10 Baso # (Auto) 0.1 X10^3/uL (0.0-0.1) 06/15/18 04:10 Absolute Nucleated RBC 0.0 /100WBC 06/15/18 04:10 INR Target Range - 06/13/18 05:50 INR 1.17 (0.8-1.3) 06/13/18 05:50 Sodium 135 mmol/L (136-145) L 06/15/18 04:10 Corrected Sodium TNP 06/15/18 04:10 Potassium 3.5 mmol/L (3.5-5.1) 06/15/18 04:10 Chloride 103 mmol/L (98-107) 06/15/18 04:10 Carbon Dioxide 23.4 mmol/L (21-32) 06/15/18 04:10 BUN 20 mg/dL (7-18) H 06/15/18 04:10 Creatinine 1.11 mg/dL (0.55-1.02) H 06/15/18 04:10 Est GFR (MDRD) Af Amer 60 (>60) 06/15/18 04:10 Est GFR (MDRD) Non-Af 49 (>60) L 06/15/18 04:10 Glucose 97 mg/dL (65-99) 06/15/18 04:10 Calcium 7.8 mg/dL (8.5-10.1) L 06/15/18 04:10 Corrected Calcium 9.1 mg/dL (8.5-10.1) 06/15/18 04:10 Magnesium 2.2 mg/dL (1.7-2.9) 06/11/18 05:47 Total Bilirubin 0.40 mg/dL (0.2-1.0) 06/15/18 04:10 AST 23 Units/L (15-37) 06/15/18 04:10 ALT 23 Units/L (12-78) 06/15/18 04:10 Alkaline Phosphatase 48 Units/L (46-116) 06/15/18 04:10 Creatine Kinase 115 Units/L (26-192) 06/10/18 22:04 CK-MB (CK-2) 1.1 ng/mL (0-4.0) 06/10/18 22:04 CK/CKMB % Calc 1.0 % (<4) 06/10/18 22:04 Troponin I 0.02 ng/mL (0-1.5) 06/10/18 22:04 Total Protein 5.5 g/dL (6.4-8.2) L 06/15/18 04:10 Albumin 2.4 g/dL (3.4-5.0) L 06/15/18 04:10 Globulin 3.1 g/dL (2.5-4.5) 06/15/18 04:10 Albumin/Globulin Ratio 0.8 Ratio (1.1-2.1) L 06/15/18 04:10 Specimen Type Catherized urine 06/11/18 06:27 Urine Color Yellow (YELLOW) 06/11/18 06:27 Urine Appearance Clear (CLEAR) 06/11/18 06:27 Urine pH 6.0 (5.0 - 8.0) 06/11/18 06:27 Ur Specific [place] 1.010 (1.000-1.030) 06/11/18 06:27 Urine Protein 1+ (NEGATIVE) 06/11/18 06:27 Urine Glucose (UA) Negative (NEGATIVE) 06/11/18 06:27 Urine Ketones Negative (NEGATIVE) 06/11/18 06:27 Urine Occult Blood 1+ (NEGATIVE) 06/11/18 06:27 Urine Nitrite Negative (NEGATIVE) 06/11/18 06:27 Urine Bilirubin Negative (NEGATIVE) 06/11/18 06:27 Urine Urobilinogen Normal (NORMAL) 06/11/18 06:27 Ur Leukocyte Esterase Negative (NEGATIVE) 06/11/18 06:27 Urine RBC 0-2 /HPF (NONE SEEN) 06/11/18 06:27 Urine WBC 0-2 /HPF (NONE SEEN) 06/11/18 06:27 Ur Squamous Epith Cells Rare /HPF (NEGATIVE) 06/11/18 06:27 Urine Bacteria Trace /HPF (NEGATIVE) 06/11/18 06:27 Urine Mucus Rare /HPF (NEGATIVE) 06/11/18 06:27 Ur Culture Indicated? Yes/culture set up 06/11/18 06:27 Digoxin 1.25 ng/mL (0.9-2) 06/15/18 04:10 - Plan (1) Syncope Status: Acute Qualifiers: Syncope type: unspecified Qualified Code(s): R55 - Syncope and collapse Plan: TELEMETRY, CONTINUE TO MONITOR (2) Generalized weakness Status: Acute Plan: NORMAL SALINE AT 80ML/HR, TELEMETRY, CONTINUE TO MONITOR (3) Metatarsal bone fracture Status: Acute Qualifiers: Metatarsal bone: fifth Fracture type: closed Fracture alignment: displaced Laterality: right Fracture healing: with routine healing Plan: ORTHO BOOT, PAIN CONTROL, CONTINUE TO MONITOR (4) Atrial fibrillation Status: Acute Qualifiers: Atrial fibrillation type: chronic Qualified Code(s): I48.2 - Chronic atrial fibrillation Plan: CONTINUE COUMADIN, SOTOLOL 40MG PO BID, CONTINUE TO MONITOR (5) Hypotension Status: Resolved Qualifiers: Hypotension type: orthostatic hypotension Qualified Code(s): I95.1 - Orthostatic hypotension Plan: CONTINUE TO MONITOR
--- NOTE | 2018-06-15 17:35 | PCM.PROG ---
Progress Note - Progress Note for Day of Date of Exam: 06/14/18 - Subjective Subjective: WAS ADMITTED FOR FALLS, SYNCOPE, WEAKNESS, DIZZINESS, AND HYPOTENSION. SHE BECAME COMBATIVE AND CONFUSED THROUGHOUT THE NIGHT AND WAS PLACED IN RESTRAINTS FOR SAFETY OF PATIENT AND STAFF. STAFF REPORTS THAT PATIENT WAS THROWING MEDICAL EQUIPMENT AND HITTING STAFF. TODAY, SHE IS LYING IN BED WITH EYES CLOSED ON MORNING ROUNDS. SHE AWAKENS AND RESPONDS EASILY TO VERBAL STIMULI. SHE CONTINUES WITH COMPLAINTS OF GENERALIZED WEAKNESS AND RIGHT FOOT AND KNEE PAIN. HER HEART RATE REMAINED ELEVATED YESTERDAY. SHE WAS ALSO NOTED WITH AN INCREASE IN BLOOD PRESSURE. HER HOME MEDICATION OF AMLODIPINE WAS RESTARTED AND ALSO GIVEN A DOSE OF CATAPRES 0.1MG PO. SHE WAS LATER NOTED WITH A DECREASE IN BLOOD PRESSURE. STAFF REPORTS ONLY ADMINISTERING A HALF DOSE OF SOTOLOL LAST NIGHT. ON EXAMINATION, SHE CONTINUES TO BE TACHYCARDIC WITH HEART RATE NOTED TO BE IN THE 120S. ENGINEERING INSPECTION ASSISTANT REVEALS ATRIAL FIBRILLATION. BILATERAL LUNGS ARE NOTED WITH DIMINISHED LUNG SOUNDS THROUGHOUT. ABDOMEN IS ROUND, SOFT, AND NON-TENDER WITH NORMAL BOWEL SOUNDS NOTED IN ALL QUADRANTS. RIGHT FOOT CONTINUES WITH BRUISING AND EDEMA. HER VITALS THIS MORNING ARE 97.7- 120-17-95%-127/71. LABS WERE OBTAINED. ABNORMAL LAB VALUES INCLUDE THE FOLLOWING : RBC 3.45, HGB 11.2, HCT 32.0, GLUCOSE 130, CALCIUM 8.1, ALBUMIN 2.8. TODAY, WE WILL DISCONTINUE THE AMLODIPINE AND CATAPRES AND INCREASE THE SOTOLOL TO 80MG PO BID. OTHERWISE, WE WILL CONTINUE WITH PHYSICAL THERAPY AND CURRENT PLAN OF CARE. WE WILL FOLLOW-UP WITH AM LABS AND CONTINUE TO MONITOR PATIENT. - Past Medical Family Social History Past Med/Fam/Surg Hx: No changes since H&P Allergies: Allergies amiodarone Allergy (Verified 05/16/17 21:20) clonidine [From Catapres] Allergy (Verified 06/14/18 10:29) prednisone Allergy (Verified 05/16/17 21:20) amoxicillin Adverse Reaction (Verified 05/16/17 21:20) cetirizine [From Zyrtec] Adverse Reaction (Verified 05/16/17 21:20) clavulanic acid Adverse Reaction (Verified 05/16/17 21:20) erythromycin base [From Staticin] Adverse Reaction (Verified 05/16/17 21:20) ethyl alcohol [From Staticin] Adverse Reaction (Verified 05/16/17 21:20) Sulfa (Sulfonamide Antibiotics) [SULFA] Adverse Reaction (Verified 05/16/17 21: 20) tramadol Adverse Reaction (Verified 05/16/17 21:20) zolpidem Adverse Reaction (Verified 05/16/17 21:20) - Review of Systems ROS: No change since H&P - Vital Signs and I&O's Vital Signs: Temperature 97.6 F Pulse Rate [Left Brachial] 113 Pulse Rate 160 Respiratory Rate 18 Blood Pressure [Left Arm] 130/74 Blood Pressure [Right Arm] 139/80 Blood Pressure 146/68 O2 Sat by Pulse Oximetry 92 Intake and Output: Intake & Output 06/13/18 06/14/18 06/15/18 06/16/18 11:59 11:59 11:59 11:59 Intake Total 2085 / 2085 2970 / 2970 2550 / 2550 4126 / 4126 Output Total 3100 / 3100 600 / 600 0 / 0 Balance -1015 / -1015 2370 / 2370 2550 / 2550 4126 / 4126 - Physical Exam Oriented: Normal Eyes: Normal Ear: Normal Nose: Normal Throat: Normal Respiratory: Generalized, Diminished Cardiovascular: Tachycardia, Edema. negative: S3, S4, Murmur (RIGHT FOOT ) : Normal Auscultation: Bowel Sounds: Normal Palpation: Normal Tenderness: Normal Skin: Bruising (RIGHT FOOT/ANKLE ) Musculoskeletal: Right, Foot, Swelling, Tender Psychiatric: Normal Mood Description: Calm Affect: Normal Speech Pattern: Appropriate - Laboratory and Diagnostics Result Diagrams: 06/15/18 04:10 06/15/18 04:10 Labs: 06/11/18 06:27 Urine,Clean Catch Urine Culture - Final Laboratory WBC 7.1 X10^3/uL (3.6-10.0) 06/15/18 04:10 RBC 3.18 X10^6/uL (3.5-5.4) L 06/15/18 04:10 Hgb 10.2 g/dL (12.0-16.0) L 06/15/18 04:10 Hct 29.1 % (36.0-47.0) L 06/15/18 04:10 MCV 91.5 fL (80.0-100.0) 06/15/18 04:10 MCH 32.1 pg (27.0-34.0) 06/15/18 04:10 MCHC 35.1 g/dL (33.0-35.0) H 06/15/18 04:10 RDW 13.7 % (11.6-16.5) 06/15/18 04:10 Plt Count 216 X10^3/uL (150.0-450.0) 06/15/18 04:10 MPV 8.2 fL (7.4-11.0) 06/15/18 04:10 Neut % (Auto) 67.4 % (42.0-75.0) 06/15/18 04:10 Lymph % (Auto) 17.5 % (21.0-51.0) L 06/15/18 04:10 [place] % (Auto) 11.3 % (0.0-13.0) 06/15/18 04:10 Eos % (Auto) 2.7 % (0.9-2.9) 06/15/18 04:10 Baso % (Auto) 1.1 % (0.2-1.0) H 06/15/18 04:10 Neut # (Auto) 4.8 x10^3/uL (2.2-4.8) 06/15/18 04:10 Lymph # (Auto) 1.2 X10^3/uL (1.3-2.9) L 06/15/18 04:10 [place] # (Auto) 0.8 x10^3/uL (0.3-0.8) 06/15/18 04:10 Eos # (Auto) 0.2 x10^3/uL (0.0-0.2) 06/15/18 04:10 Baso # (Auto) 0.1 X10^3/uL (0.0-0.1) 06/15/18 04:10 Absolute Nucleated RBC 0.0 /100WBC 06/15/18 04:10 INR Target Range - 06/13/18 05:50 INR 1.17 (0.8-1.3) 06/13/18 05:50 Sodium 135 mmol/L (136-145) L 06/15/18 04:10 Corrected Sodium TNP 06/15/18 04:10 Potassium 3.5 mmol/L (3.5-5.1) 06/15/18 04:10 Chloride 103 mmol/L (98-107) 06/15/18 04:10 Carbon Dioxide 23.4 mmol/L (21-32) 06/15/18 04:10 BUN 20 mg/dL (7-18) H 06/15/18 04:10 Creatinine 1.11 mg/dL (0.55-1.02) H 06/15/18 04:10 Est GFR (MDRD) Af Amer 60 (>60) 06/15/18 04:10 Est GFR (MDRD) Non-Af 49 (>60) L 06/15/18 04:10 Glucose 97 mg/dL (65-99) 06/15/18 04:10 Calcium 7.8 mg/dL (8.5-10.1) L 06/15/18 04:10 Corrected Calcium 9.1 mg/dL (8.5-10.1) 06/15/18 04:10 Magnesium 2.2 mg/dL (1.7-2.9) 06/11/18 05:47 Total Bilirubin 0.40 mg/dL (0.2-1.0) 06/15/18 04:10 AST 23 Units/L (15-37) 06/15/18 04:10 ALT 23 Units/L (12-78) 06/15/18 04:10 Alkaline Phosphatase 48 Units/L (46-116) 06/15/18 04:10 Creatine Kinase 115 Units/L (26-192) 06/10/18 22:04 CK-MB (CK-2) 1.1 ng/mL (0-4.0) 06/10/18 22:04 CK/CKMB % Calc 1.0 % (<4) 06/10/18 22:04 Troponin I 0.02 ng/mL (0-1.5) 06/10/18 22:04 Total Protein 5.5 g/dL (6.4-8.2) L 06/15/18 04:10 Albumin 2.4 g/dL (3.4-5.0) L 06/15/18 04:10 Globulin 3.1 g/dL (2.5-4.5) 06/15/18 04:10 Albumin/Globulin Ratio 0.8 Ratio (1.1-2.1) L 06/15/18 04:10 Specimen Type Catherized urine 06/11/18 06:27 Urine Color Yellow (YELLOW) 06/11/18 06:27 Urine Appearance Clear (CLEAR) 06/11/18 06:27 Urine pH 6.0 (5.0 - 8.0) 06/11/18 06:27 Ur Specific [place] 1.010 (1.000-1.030) 06/11/18 06:27 Urine Protein 1+ (NEGATIVE) 06/11/18 06:27 Urine Glucose (UA) Negative (NEGATIVE) 06/11/18 06:27 Urine Ketones Negative (NEGATIVE) 06/11/18 06:27 Urine Occult Blood 1+ (NEGATIVE) 06/11/18 06:27 Urine Nitrite Negative (NEGATIVE) 06/11/18 06:27 Urine Bilirubin Negative (NEGATIVE) 06/11/18 06:27 Urine Urobilinogen Normal (NORMAL) 06/11/18 06:27 Ur Leukocyte Esterase Negative (NEGATIVE) 06/11/18 06:27 Urine RBC 0-2 /HPF (NONE SEEN) 06/11/18 06:27 Urine WBC 0-2 /HPF (NONE SEEN) 06/11/18 06:27 Ur Squamous Epith Cells Rare /HPF (NEGATIVE) 06/11/18 06:27 Urine Bacteria Trace /HPF (NEGATIVE) 06/11/18 06:27 Urine Mucus Rare /HPF (NEGATIVE) 06/11/18 06:27 Ur Culture Indicated? Yes/culture set up 06/11/18 06:27 Digoxin 1.25 ng/mL (0.9-2) 06/15/18 04:10 - Plan (1) Syncope Status: Acute Qualifiers: Syncope type: unspecified Qualified Code(s): R55 - Syncope and collapse Plan: TELEMETRY, CONTINUE TO MONITOR (2) Generalized weakness Status: Acute Plan: NORMAL SALINE AT 80ML/HR, TELEMETRY, CONTINUE TO MONITOR (3) Metatarsal bone fracture Status: Acute Qualifiers: Metatarsal bone: fifth Fracture type: closed Fracture alignment: displaced Laterality: right Fracture healing: with routine healing Plan: ORTHO BOOT, PAIN CONTROL, CONTINUE TO MONITOR (4) Atrial fibrillation Status: Acute Qualifiers: Atrial fibrillation type: chronic Qualified Code(s): I48.2 - Chronic atrial fibrillation Plan: CONTINUE COUMADIN, SOTOLOL 80MG PO BID, CONTINUE TO MONITOR (5) Hypotension Status: Resolved Qualifiers: Hypotension type: orthostatic hypotension Qualified Code(s): I95.1 - Orthostatic hypotension Plan: CONTINUE TO MONITOR
[2018-06-15] MEDS: COUMADIN TAB 5 MG PO SCH (21:00)
[2018-06-15] MEDS: VISTARIL PO PRN (23:33)
[2018-06-16] MEDS: NS 1000 ML 1,000 ML IV SCH (01:15)
[2018-06-16 05:10] LABS: BASOPHILS # (AUTO) 0.1 X10^3/uL (0.0-0.1); BASOPHILS % (AUTO) 0.8 % (0.2-1.0); EOSINOPHILS # (AUTO) 0.1 x10^3/uL (0.0-0.2); EOSINOPHILS % (AUTO) 1.1 % (0.9-2.9); HEMATOCRIT 30.8 % (36.0-47.0); HEMOGLOBIN 10.9 g/dL (12.0-16.0); LYMPHOCYTES # (AUTO) 1.2 X10^3/uL (1.3-2.9); LYMPHOCYTES % (AUTO) 15.7 % (21.0-51.0); MEAN CORPUSCULAR HEMOGLOBIN 32.5 pg (27.0-34.0); MEAN CORPUSCULAR HGB CONC 35.3 g/dL (33.0-35.0); MEAN CORPUSCULAR VOLUME 92.2 fL (80.0-100.0); MEAN PLATELET VOLUME 7.9 fL (7.4-11.0); MONOCYTES # (AUTO) 0.8 x10^3/uL (0.3-0.8); MONOCYTES % (AUTO) 10.1 % (0.0-13.0); NEUTROPHILS # (AUTO) 5.6 x10^3/uL (2.2-4.8); NEUTROPHILS % (AUTO) 72.3 % (42.0-75.0); PLATELET COUNT 254 X10^3/uL (150.0-450.0); RED BLOOD COUNT 3.34 X10^6/uL (3.5-5.4); RED CELL DISTRIBUTION WIDTH 13.8 % (11.6-16.5); WHITE BLOOD COUNT 7.8 X10^3/uL (3.6-10.0)
[2018-06-16 05:24] LABS: ALBUMIN 2.7 g/dL (3.4-5.0); CALCIUM 8.1 mg/dL (8.5-10.1); CARBON DIOXIDE 23.9 mmol/L (21-32); COR CA(FOR HYPOALB) 9.1 mg/dL (8.5-10.1); CREATININE 1.14 mg/dL (0.55-1.02); DIGOXIN 1.49 ng/mL (0.9-2)
[2018-06-16] MEDS: LANOXIN PO SCH (09:30)
[2018-06-16] MEDS: PATIENT'S HOME MEDICATION PO SCH ×2 (09:30→21:47)
--- NOTE | 2018-06-16 09:51 | PCM.PROG ---
Progress Note - Progress Note for Day of Date of Exam: 06/15/18 - Subjective Subjective: WAS ADMITTED FOR FALLS, SYNCOPE, WEAKNESS, DIZZINESS, AND HYPOTENSION. TODAY, SHE IS ALERT AND ORIENTED, LYING IN BED ON MORNING ROUNDS. SHE CONTINUES WITH COMPLAINTS OF GENERALIZED WEAKNESS AND RIGHT FOOT AND KNEE PAIN. SHE ALSO REPORTS SHORTNESS OF BREATH AND DIZZINESS AT TIMES. HER HEARTRATE HAS BEEN BETTER CONTROLLED AFTER INCREASING THE SOTOLOL TO 80MG PO BID , BUT CONTINUES TO REMAIN SLIGHTLY ELEVATED. ON EXAMINATION, SHE CONTINUES TO BE TACHYCARDIC WITH HEART RATE NOTED TO BE IN THE 120S. DRAMATIC ARTS HISTORIAN REVEALS ATRIAL FIBRILLATION. BILATERAL LUNGS ARE NOTED WITH DIMINISHED LUNG SOUNDS THROUGHOUT. ABDOMEN IS ROUND, SOFT, AND NON-TENDER WITH NORMAL BOWEL SOUNDS NOTED IN ALL QUADRANTS. RIGHT FOOT CONTINUES WITH BRUISING AND EDEMA. HER VITALS THIS MORNING ARE 98.3-122-20-98%-119/61. LABS WERE OBTAINED. ABNORMAL LAB VALUES INCLUDE THE FOLLOWING: RBC 3.34, HGB 10.9, HCT 30.8, SODIUM 135, BUN 20, CREATININE 1.11, CALCIUM 7.8, TOTAL PROTEIN 5.5, ALBUMIN 2.4. TODAY, WE WILL CONTINUE WITH HER CURRENT PLAN OF CARE. OTHERWISE, WE WILL FOLLOW-UP WITH AM LABS AND CONTINUE TO MONITOR PATIENT. - Past Medical Family Social History Past Med/Fam/Surg Hx: No changes since H&P Allergies: Allergies amiodarone Allergy (Verified 05/16/17 21:20) clonidine [From Catapres] Allergy (Verified 06/14/18 10:29) prednisone Allergy (Verified 05/16/17 21:20) amoxicillin Adverse Reaction (Verified 05/16/17 21:20) cetirizine [From Zyrtec] Adverse Reaction (Verified 05/16/17 21:20) clavulanic acid Adverse Reaction (Verified 05/16/17 21:20) erythromycin base [From Staticin] Adverse Reaction (Verified 05/16/17 21:20) ethyl alcohol [From Staticin] Adverse Reaction (Verified 05/16/17 21:20) Sulfa (Sulfonamide Antibiotics) [SULFA] Adverse Reaction (Verified 05/16/17 21: 20) tramadol Adverse Reaction (Verified 05/16/17 21:20) zolpidem Adverse Reaction (Verified 05/16/17 21:20) - Review of Systems ROS: No change since H&P - Vital Signs and I&O's Vital Signs: Temperature 98.2 F Pulse Rate [Left Brachial] 110 Pulse Rate 160 Respiratory Rate 20 Blood Pressure [Left Arm] 142/85 Blood Pressure [Right Arm] 139/80 Blood Pressure 146/68 O2 Sat by Pulse Oximetry 97 Intake and Output: Intake & Output 06/13/18 06/14/18 06/15/18 06/16/18 11:59 11:59 11:59 11:59 Intake Total 2085 / 2085 2970 / 2970 2550 / 2550 4746 / 4746 Output Total 3100 / 3100 600 / 600 0 / 0 Balance -1015 / -1015 2370 / 2370 2550 / 2550 4746 / 4746 - Physical Exam Oriented: Normal Eyes: Normal Ear: Normal Nose: Normal Throat: Normal Respiratory: Generalized, Diminished Cardiovascular: Tachycardia, Edema. negative: S3, S4, Murmur (RIGHT FOOT ) : Normal Auscultation: Bowel Sounds: Normal Palpation: Normal Tenderness: Normal Skin: Bruising (RIGHT FOOT/ANKLE ) Musculoskeletal: Right, Foot, Swelling, Tender Psychiatric: Normal Mood Description: Calm Affect: Normal Speech Pattern: Appropriate - Laboratory and Diagnostics Result Diagrams: 06/16/18 04:40 06/16/18 04:40 Labs: 06/11/18 06:27 Urine,Clean Catch Urine Culture - Final Laboratory WBC 7.8 X10^3/uL (3.6-10.0) 06/16/18 04:40 RBC 3.34 X10^6/uL (3.5-5.4) L 06/16/18 04:40 Hgb 10.9 g/dL (12.0-16.0) L 06/16/18 04:40 Hct 30.8 % (36.0-47.0) L 06/16/18 04:40 MCV 92.2 fL (80.0-100.0) 06/16/18 04:40 MCH 32.5 pg (27.0-34.0) 06/16/18 04:40 MCHC 35.3 g/dL (33.0-35.0) H 06/16/18 04:40 RDW 13.8 % (11.6-16.5) 06/16/18 04:40 Plt Count 254 X10^3/uL (150.0-450.0) 06/16/18 04:40 MPV 7.9 fL (7.4-11.0) 06/16/18 04:40 Neut % (Auto) 72.3 % (42.0-75.0) 06/16/18 04:40 Lymph % (Auto) 15.7 % (21.0-51.0) L 06/16/18 04:40 [place] % (Auto) 10.1 % (0.0-13.0) 06/16/18 04:40 Eos % (Auto) 1.1 % (0.9-2.9) 06/16/18 04:40 Baso % (Auto) 0.8 % (0.2-1.0) 06/16/18 04:40 Neut # (Auto) 5.6 x10^3/uL (2.2-4.8) H 06/16/18 04:40 Lymph # (Auto) 1.2 X10^3/uL (1.3-2.9) L 06/16/18 04:40 [place] # (Auto) 0.8 x10^3/uL (0.3-0.8) 06/16/18 04:40 Eos # (Auto) 0.1 x10^3/uL (0.0-0.2) 06/16/18 04:40 Baso # (Auto) 0.1 X10^3/uL (0.0-0.1) 06/16/18 04:40 Absolute Nucleated RBC 0.0 /100WBC 06/16/18 04:40 INR Target Range - 06/13/18 05:50 INR 1.17 (0.8-1.3) 06/13/18 05:50 Sodium 137 mmol/L (136-145) 06/16/18 04:40 Corrected Sodium 137 mmol/L (136-145) 06/16/18 04:40 Potassium 3.8 mmol/L (3.5-5.1) 06/16/18 04:40 Chloride 106 mmol/L (98-107) 06/16/18 04:40 Carbon Dioxide 23.9 mmol/L (21-32) 06/16/18 04:40 BUN 20 mg/dL (7-18) H 06/16/18 04:40 Creatinine 1.14 mg/dL (0.55-1.02) H 06/16/18 04:40 Est GFR (MDRD) Af Amer 58 (>60) L 06/16/18 04:40 Est GFR (MDRD) Non-Af 48 (>60) L 06/16/18 04:40 Glucose 115 mg/dL (65-99) H 06/16/18 04:40 Calcium 8.1 mg/dL (8.5-10.1) L 06/16/18 04:40 Corrected Calcium 9.1 mg/dL (8.5-10.1) 06/16/18 04:40 Magnesium 2.2 mg/dL (1.7-2.9) 06/11/18 05:47 Total Bilirubin 0.50 mg/dL (0.2-1.0) 06/16/18 04:40 AST 27 Units/L (15-37) 06/16/18 04:40 ALT 31 Units/L (12-78) 06/16/18 04:40 Alkaline Phosphatase 57 Units/L (46-116) 06/16/18 04:40 Creatine Kinase 115 Units/L (26-192) 06/10/18 22:04 CK-MB (CK-2) 1.1 ng/mL (0-4.0) 06/10/18 22:04 CK/CKMB % Calc 1.0 % (<4) 06/10/18 22:04 Troponin I 0.02 ng/mL (0-1.5) 06/10/18 22:04 Total Protein 6.0 g/dL (6.4-8.2) L 06/16/18 04:40 Albumin 2.7 g/dL (3.4-5.0) L 06/16/18 04:40 Globulin 3.3 g/dL (2.5-4.5) 06/16/18 04:40 Albumin/Globulin Ratio 0.8 Ratio (1.1-2.1) L 06/16/18 04:40 Specimen Type Catherized urine 06/11/18 06:27 Urine Color Yellow (YELLOW) 06/11/18 06:27 Urine Appearance Clear (CLEAR) 06/11/18 06:27 Urine pH 6.0 (5.0 - 8.0) 06/11/18 06:27 Ur Specific [place] 1.010 (1.000-1.030) 06/11/18 06:27 Urine Protein 1+ (NEGATIVE) 06/11/18 06:27 Urine Glucose (UA) Negative (NEGATIVE) 06/11/18 06:27 Urine Ketones Negative (NEGATIVE) 06/11/18 06:27 Urine Occult Blood 1+ (NEGATIVE) 06/11/18 06:27 Urine Nitrite Negative (NEGATIVE) 06/11/18 06:27 Urine Bilirubin Negative (NEGATIVE) 06/11/18 06:27 Urine Urobilinogen Normal (NORMAL) 06/11/18 06:27 Ur Leukocyte Esterase Negative (NEGATIVE) 06/11/18 06:27 Urine RBC 0-2 /HPF (NONE SEEN) 06/11/18 06:27 Urine WBC 0-2 /HPF (NONE SEEN) 06/11/18 06:27 Ur Squamous Epith Cells Rare /HPF (NEGATIVE) 06/11/18 06:27 Urine Bacteria Trace /HPF (NEGATIVE) 06/11/18 06:27 Urine Mucus Rare /HPF (NEGATIVE) 06/11/18 06:27 Ur Culture Indicated? Yes/culture set up 06/11/18 06:27 Digoxin 1.49 ng/mL (0.9-2) 06/16/18 04:40 - Plan (1) Syncope Status: Acute Qualifiers: Syncope type: unspecified Qualified Code(s): R55 - Syncope and collapse Plan: TELEMETRY, CONTINUE TO MONITOR (2) Generalized weakness Status: Acute Plan: NORMAL SALINE AT 80ML/HR, TELEMETRY, CONTINUE TO MONITOR (3) Metatarsal bone fracture Status: Acute Qualifiers: Metatarsal bone: fifth Fracture type: closed Fracture alignment: displaced Laterality: right Fracture healing: with routine healing Plan: ORTHO BOOT, PAIN CONTROL, CONTINUE TO MONITOR (4) Atrial fibrillation Status: Acute Qualifiers: Atrial fibrillation type: chronic Qualified Code(s): I48.2 - Chronic atrial fibrillation Plan: CONTINUE COUMADIN, SOTOLOL 80MG PO BID, CONTINUE TO MONITOR (5) Hypotension Status: Resolved Qualifiers: Hypotension type: orthostatic hypotension Qualified Code(s): I95.1 - Orthostatic hypotension Plan: CONTINUE TO MONITOR
[2018-06-16] MEDS: MILK OF MAGNESIA PO SCH (10:15)
[2018-06-16] MEDS: LOVENOX INJ 30 MG SYR SC SCH (10:16)
[2018-06-16] MEDS: HALDOL INJ IVP PRN ×2 (10:30→23:36)
[2018-06-16] MEDS: VISTARIL PO PRN (17:27)
--- NOTE | 2018-06-16 20:47 | PCM.PROG ---
Progress Note - Progress Note for Day of Date of Exam: 06/16/18 - Subjective Subjective: WAS ADMITTED FOR FALLS, SYNCOPE, WEAKNESS, DIZZINESS, AND HYPOTENSION. TODAY, SHE IS LYING IN BED ON MORNING ROUNDS. SHE IS DISORIENTED AND AGITATED AT THIS TIME. FAMILY REPORTS THAT SHE HAS BEEN GETTING OUT OF BED AND PULLING AT WIRES AND IV LINES THROUGHOUT THE NIGHT. SHE CONTINUES WITH COMPLAINTS OF GENERALIZED WEAKNESS AND RIGHT FOOT AND KNEE PAIN. HER HEARTRATE AND BLOOD PRESSURE HAS REMAINED STABLE THROUGHOUT THE NIGHT. ON EXAMINATION, SHE CONTINUES TO BE TACHYCARDIC WITH HEART RATE NOTED TO BE 110- 120S. BILATERAL LUNGS ARE NOTED WITH DIMINISHED LUNG SOUNDS THROUGHOUT. ABDOMEN IS ROUND, SOFT, AND NON-TENDER WITH NORMAL BOWEL SOUNDS NOTED IN ALL QUADRANTS. RIGHT FOOT CONTINUES WITH BRUISING AND EDEMA. SWELLING HAS SLIGHTLY DECREASED SINCE YESTERDAY. HER VITALS THIS MORNING ARE 97.2-710-26-100%nc-182/76. LABS WERE OBTAINED. ABNORMAL LAB VALUES INCLUDE THE FOLLOWING: RBC 3.34, HGB 10.9, HCT 30.8, BUN 20, CREATININE 1.14, GLUCOSE 115, CALCIUM 8.1, TOTAL PROTEIN 6.0, ALBUMIN 2.7. PHYSICAL THERAPY CONTINUES TO WORK WITH PATIENT. TODAY, WE WILL START HALDOL 1-2MG IV Q4H PRN AGITATION. OTHEREWISE, WE WILL CONTINUE WITH HER CURRENT PLAN OF CARE. WE WILL FOLLOW-UP WITH AM LABS AND CONTINUE TO MONITOR PATIENT. - Past Medical Family Social History Past Med/Fam/Surg Hx: No changes since H&P Allergies: Allergies amiodarone Allergy (Verified 05/16/17 21:20) clonidine [From Catapres] Allergy (Verified 06/14/18 10:29) prednisone Allergy (Verified 05/16/17 21:20) amoxicillin Adverse Reaction (Verified 05/16/17 21:20) cetirizine [From Zyrtec] Adverse Reaction (Verified 05/16/17 21:20) clavulanic acid Adverse Reaction (Verified 05/16/17 21:20) erythromycin base [From Staticin] Adverse Reaction (Verified 05/16/17 21:20) ethyl alcohol [From Staticin] Adverse Reaction (Verified 05/16/17 21:20) Sulfa (Sulfonamide Antibiotics) [SULFA] Adverse Reaction (Verified 05/16/17 21: 20) tramadol Adverse Reaction (Verified 05/16/17 21:20) zolpidem Adverse Reaction (Verified 05/16/17 21:20) - Review of Systems ROS: No change since H&P - Vital Signs and I&O's Vital Signs: Temperature 99.0 F Pulse Rate [Left Brachial] 102 Pulse Rate 115 Respiratory Rate 18 Blood Pressure [Left Arm] 182/94 Blood Pressure [Right Arm] 139/80 Blood Pressure 146/68 O2 Sat by Pulse Oximetry 92 Intake and Output: Intake & Output 06/14/18 06/15/18 06/16/18 06/17/18 11:59 11:59 11:59 11:59 Intake Total 2970 / 2970 2550 / 2550 4746 / 4746 360 / 360 Output Total 600 / 600 0 / 0 Balance 2370 / 2370 2550 / 2550 4746 / 4746 360 / 360 - Physical Exam Oriented: Person Eyes: Normal Ear: Normal Nose: Normal Throat: Normal Respiratory: Generalized, Diminished Cardiovascular: Tachycardia, Edema. negative: S3, S4, Murmur (RIGHT FOOT ) : Normal Auscultation: Bowel Sounds: Normal Palpation: Normal Tenderness: Normal Skin: Bruising (RIGHT FOOT/ANKLE ) Musculoskeletal: Right, Foot, Swelling, Tender Psychiatric: Agitation Mood Description: Anxious Affect: Anxious Speech Pattern: Clear, Appropriate - Laboratory and Diagnostics Result Diagrams: 06/16/18 04:40 06/16/18 04:40 Labs: 06/11/18 06:27 Urine,Clean Catch Urine Culture - Final Laboratory WBC 7.8 X10^3/uL (3.6-10.0) 06/16/18 04:40 RBC 3.34 X10^6/uL (3.5-5.4) L 06/16/18 04:40 Hgb 10.9 g/dL (12.0-16.0) L 06/16/18 04:40 Hct 30.8 % (36.0-47.0) L 06/16/18 04:40 MCV 92.2 fL (80.0-100.0) 06/16/18 04:40 MCH 32.5 pg (27.0-34.0) 06/16/18 04:40 MCHC 35.3 g/dL (33.0-35.0) H 06/16/18 04:40 RDW 13.8 % (11.6-16.5) 06/16/18 04:40 Plt Count 254 X10^3/uL (150.0-450.0) 06/16/18 04:40 MPV 7.9 fL (7.4-11.0) 06/16/18 04:40 Neut % (Auto) 72.3 % (42.0-75.0) 06/16/18 04:40 Lymph % (Auto) 15.7 % (21.0-51.0) L 06/16/18 04:40 [place] % (Auto) 10.1 % (0.0-13.0) 06/16/18 04:40 Eos % (Auto) 1.1 % (0.9-2.9) 06/16/18 04:40 Baso % (Auto) 0.8 % (0.2-1.0) 06/16/18 04:40 Neut # (Auto) 5.6 x10^3/uL (2.2-4.8) H 06/16/18 04:40 Lymph # (Auto) 1.2 X10^3/uL (1.3-2.9) L 06/16/18 04:40 [place] # (Auto) 0.8 x10^3/uL (0.3-0.8) 06/16/18 04:40 Eos # (Auto) 0.1 x10^3/uL (0.0-0.2) 06/16/18 04:40 Baso # (Auto) 0.1 X10^3/uL (0.0-0.1) 06/16/18 04:40 Absolute Nucleated RBC 0.0 /100WBC 06/16/18 04:40 INR Target Range - 06/13/18 05:50 INR 1.17 (0.8-1.3) 06/13/18 05:50 Sodium 137 mmol/L (136-145) 06/16/18 04:40 Corrected Sodium 137 mmol/L (136-145) 06/16/18 04:40 Potassium 3.8 mmol/L (3.5-5.1) 06/16/18 04:40 Chloride 106 mmol/L (98-107) 06/16/18 04:40 Carbon Dioxide 23.9 mmol/L (21-32) 06/16/18 04:40 BUN 20 mg/dL (7-18) H 06/16/18 04:40 Creatinine 1.14 mg/dL (0.55-1.02) H 06/16/18 04:40 Est GFR (MDRD) Af Amer 58 (>60) L 06/16/18 04:40 Est GFR (MDRD) Non-Af 48 (>60) L 06/16/18 04:40 Glucose 115 mg/dL (65-99) H 06/16/18 04:40 Calcium 8.1 mg/dL (8.5-10.1) L 06/16/18 04:40 Corrected Calcium 9.1 mg/dL (8.5-10.1) 06/16/18 04:40 Magnesium 2.2 mg/dL (1.7-2.9) 06/11/18 05:47 Total Bilirubin 0.50 mg/dL (0.2-1.0) 06/16/18 04:40 AST 27 Units/L (15-37) 06/16/18 04:40 ALT 31 Units/L (12-78) 06/16/18 04:40 Alkaline Phosphatase 57 Units/L (46-116) 06/16/18 04:40 Creatine Kinase 115 Units/L (26-192) 06/10/18 22:04 CK-MB (CK-2) 1.1 ng/mL (0-4.0) 06/10/18 22:04 CK/CKMB % Calc 1.0 % (<4) 06/10/18 22:04 Troponin I 0.02 ng/mL (0-1.5) 06/10/18 22:04 Total Protein 6.0 g/dL (6.4-8.2) L 06/16/18 04:40 Albumin 2.7 g/dL (3.4-5.0) L 06/16/18 04:40 Globulin 3.3 g/dL (2.5-4.5) 06/16/18 04:40 Albumin/Globulin Ratio 0.8 Ratio (1.1-2.1) L 06/16/18 04:40 Specimen Type Catherized urine 06/11/18 06:27 Urine Color Yellow (YELLOW) 06/11/18 06:27 Urine Appearance Clear (CLEAR) 06/11/18 06:27 Urine pH 6.0 (5.0 - 8.0) 06/11/18 06:27 Ur Specific [place] 1.010 (1.000-1.030) 06/11/18 06:27 Urine Protein 1+ (NEGATIVE) 06/11/18 06:27 Urine Glucose (UA) Negative (NEGATIVE) 06/11/18 06:27 Urine Ketones Negative (NEGATIVE) 06/11/18 06:27 Urine Occult Blood 1+ (NEGATIVE) 06/11/18 06:27 Urine Nitrite Negative (NEGATIVE) 06/11/18 06:27 Urine Bilirubin Negative (NEGATIVE) 06/11/18 06:27 Urine Urobilinogen Normal (NORMAL) 06/11/18 06:27 Ur Leukocyte Esterase Negative (NEGATIVE) 06/11/18 06:27 Urine RBC 0-2 /HPF (NONE SEEN) 06/11/18 06:27 Urine WBC 0-2 /HPF (NONE SEEN) 06/11/18 06:27 Ur Squamous Epith Cells Rare /HPF (NEGATIVE) 06/11/18 06:27 Urine Bacteria Trace /HPF (NEGATIVE) 06/11/18 06:27 Urine Mucus Rare /HPF (NEGATIVE) 06/11/18 06:27 Ur Culture Indicated? Yes/culture set up 06/11/18 06:27 Digoxin 1.49 ng/mL (0.9-2) 06/16/18 04:40 - Plan (1) Syncope Status: Acute Qualifiers: Syncope type: unspecified Qualified Code(s): R55 - Syncope and collapse Plan: TELEMETRY, CONTINUE TO MONITOR (2) Generalized weakness Status: Acute Plan: NORMAL SALINE AT 80ML/HR, TELEMETRY, CONTINUE TO MONITOR (3) Metatarsal bone fracture Status: Acute Qualifiers: Metatarsal bone: fifth Fracture type: closed Fracture alignment: displaced Laterality: right Fracture healing: with routine healing Plan: ORTHO BOOT, PAIN CONTROL, CONTINUE TO MONITOR (4) Atrial fibrillation Status: Acute Qualifiers: Atrial fibrillation type: chronic Qualified Code(s): I48.2 - Chronic atrial fibrillation Plan: CONTINUE COUMADIN, SOTOLOL 80MG PO BID, CONTINUE TO MONITOR (5) Hypotension Status: Resolved Qualifiers: Hypotension type: orthostatic hypotension Qualified Code(s): I95.1 - Orthostatic hypotension Plan: CONTINUE TO MONITOR (6) Agitation Status: Acute Plan: HALDOL 1-2MG IV Q4H PRN AGITATION
[2018-06-16] MEDS: COUMADIN TAB 5 MG PO SCH (21:45)
[2018-06-17 05:37] LABS: BASOPHILS # (AUTO) 0.1 X10^3/uL (0.0-0.1); BASOPHILS % (AUTO) 1.1 % (0.2-1.0); EOSINOPHILS # (AUTO) 0.2 x10^3/uL (0.0-0.2); EOSINOPHILS % (AUTO) 2.4 % (0.9-2.9); HEMATOCRIT 30.2 % (36.0-47.0); HEMOGLOBIN 10.6 g/dL (12.0-16.0); LYMPHOCYTES # (AUTO) 1.3 X10^3/uL (1.3-2.9); LYMPHOCYTES % (AUTO) 18.6 % (21.0-51.0); MEAN CORPUSCULAR HEMOGLOBIN 32.1 pg (27.0-34.0); MEAN CORPUSCULAR HGB CONC 34.9 g/dL (33.0-35.0); MEAN CORPUSCULAR VOLUME 91.8 fL (80.0-100.0); MEAN PLATELET VOLUME 7.6 fL (7.4-11.0); MONOCYTES # (AUTO) 0.8 x10^3/uL (0.3-0.8); MONOCYTES % (AUTO) 10.7 % (0.0-13.0); NEUTROPHILS # (AUTO) 4.7 x10^3/uL (2.2-4.8); NEUTROPHILS % (AUTO) 67.2 % (42.0-75.0); PLATELET COUNT 247 X10^3/uL (150.0-450.0); RED BLOOD COUNT 3.29 X10^6/uL (3.5-5.4); WHITE BLOOD COUNT 7.1 X10^3/uL (3.6-10.0)
[2018-06-17] MEDS: NS 1000 ML 1,000 ML IV SCH ×3 (05:45→12:20)
[2018-06-17 05:56] LABS: ALANINE AMINOTRANSFERASE 40 Units/L (12-78); ALBUMIN 2.5 g/dL (3.4-5.0); ALKALINE PHOSPHATASE 57 Units/L (46-116); ASPARTATE AMINO TRANSFERASE 35 Units/L (15-37); BLOOD UREA NITROGEN 16 mg/dL (7-18); CARBON DIOXIDE 25.2 mmol/L (21-32); CHLORIDE 107 mmol/L (98-107); COR CA(FOR HYPOALB) 9.2 mg/dL (8.5-10.1); CREATININE 1.09 mg/dL (0.55-1.02); SODIUM 140 mmol/L (136-145); TOTAL PROTEIN 5.8 g/dL (6.4-8.2); eGFR NON BLACK RACES 50 (>60)
[2018-06-17 05:59] LABS: DIGOXIN 2.05 ng/mL (0.9-2)
[2018-06-17] MEDS: LANOXIN PO SCH (09:27)
[2018-06-17] MEDS: PATIENT'S HOME MEDICATION PO SCH (09:28)
[2018-06-17] MEDS: LOVENOX INJ 30 MG SYR SC SCH (09:28)
[2018-06-17] MEDS: VISTARIL PO PRN (09:29)
[2018-06-17] MEDS: MILK OF MAGNESIA PO SCH (09:29)
[2018-06-17 13:07] VITALS: BP 178/76
--- NOTE | 2018-07-18 11:23 | DR.CARTERD ---
- Discharge Summary for: Discharge Summary for Date of:: 06/17/18 - Admission Date Date of Admission: 06/10/18 - Admission Diagnoses Admission Diagnosis: (1) Syncope (2) Generalized weakness (3) Hypotension (4) Metatarsal bone fracture (5) Atrial fibrillation (6) Hypokalemia - Discharge Date Discharge Date: 06/17/18 - Discharge Diagnoses Discharge Diagnosis: (1) Syncope (2) Tachycardia (3) Generalized weakness (4) Metatarsal bone fracture (5) Atrial fibrillation (6) Hypotension (7) Agitation - Hospital Course Hospital Course: DAY ONE, MS. COTA WAS ADMITTED FOR FALLS, SYNCOPE, WEAKNESS, DIZZINESS, AND HYPOTENSION. DAY TWO, PATIENT WAS ALERT AND ORIENTED, LYING IN BED ON MORNING ROUNDS. SHE CONTINUED WITH COMPLAINTS OF GENERALIZED WEAKNESS AND DIZZINESS AT TIMES. SHE ALSO CONTINUED WITH COMPLAINTS OF RIGHT FOOT PAIN AND SWELLING. ON EXAMINATION, HEART WAS REGULAR IN RATE AND RHYTHM. BILATERAL LUNGS WERE NOTED WITH DIMINISHED LUNG SOUNDS THROUGHOUT. ABDOMEN WAS ROUND, SOFT, AND NON-TENDER WITH NORMAL BOWEL SOUNDS NOTED IN ALL QUADRANTS. RIGHT FOOT WAS NOTED WITH BRUISING AND 1+ PITTING EDEMA. HER VITALS WERE 98.6-82-20-97%-192/81. LABS WERE OBTAINED. ABNORMAL LAB VALUES INCLUDED THE FOLLOWING: HCT 35.8, POTASSIUM 3.2, BUN 30, CREATININE 1.37, GLUCOSE 112, CALCIUM 8.4, ALBUMIN 3.0. WE CONSULTED . WE ORDERED FOR PATIENT TO RECEIVE PHYSICAL THERAPY AND REPLACED HER POTASSIUM WITH THE PROTOCOL. WE HELD HER BLOOD PRESSURE MEDICATIONS. WE CONTINUED TO MONITOR. DAY THREE, SHE WAS ALERT AND ORIENTED, LYING IN BED ON MORNING ROUNDS. SHE CONTINUED WITH COMPLAINTS OF GENERALIZED WEAKNESS. SHE ALSO CONTINUED WITH COMPLAINTS OF RIGHT FOOT PAIN AND SWELLING. SHE ALSO REPORTED PAIN TO THE RIGHT KNEE. ON EXAMINATION, HEART WAS REGULAR IN RATE AND RHYTHM. BILATERAL LUNGS WERE NOTED WITH DIMINISHED LUNG SOUNDS THROUGHOUT. ABDOMEN WAS ROUND, SOFT, AND NON-TENDER WITH NORMAL BOWEL SOUNDS NOTED IN ALL QUADRANTS. RIGHT FOOT CONTINUED WITH BRUISING AND 1+ PITTING EDEMA. HER VITALS WERE 97.6-88-20-96%-151 /67. LABS WERE OBTAINED. ABNORMAL LAB VALUES INCLUDED THE FOLLOWING: RBC 3.15, HGB 10.4, HCT 29.5, CHLORIDE 108, BUN 26, CREATININE 1.34, GLUCOSE 108, CALCIUM 7.4, ALK PHOS 45, TOTAL PROTEIN 5.4, ALBUMIN 2.4. ORTHOSTATICS WERE OBTAINED AND REVEALED A DROP IN BLOOD PRESSURE FROM 114/58 TO 83/48 UPON STANDING. THIS COULD EXPLAIN THE EPISODES OF DIZZINESS AND SYNCOPE. PATIENT WAS UNABLE TO HAVE THE MRI DUE TO MITRAL VALVE REPLACEMENT. DR. KEARNEY CONSULTED WITH PATIENT AND RECOMMENDED A BOOT WITH NON-WEIGHT BEARING ON THE RIGHT FOOT FOR APPROXIMATELY TWO MONTHS. SHE REQUIRED A WALKER AND A BEDSIDE COMMODE AT HOME. PATIENT REQUIRED MODERATE ASSISTANCE WHEN AMBULATING. WE CONTINUED WITH PHYSICAL THERAPY AND CONTINUED TO MONITOR PATIENT. DAY FOUR, SHE CONTINUED WITH COMPLAINTS OF GENERALIZED WEAKNESS AND RIGHT FOOT AND KNEE PAIN. SHE WAS NOTED WITH AN INCREASE IN HEART RATE THE DAY BEFORE AND WAS STARTED ON LOPRESSOR. ON EXAMINATION, SHE CONTINUED TO BE TACHYCARDIC WITH HEART RATE NOTED TO BE IN THE 120S. SUPERVISOR VENDOR QUALITY REVEALED ATRIAL FIBRILLATION. BILATERAL LUNGS WERE NOTED WITH DIMINISHED LUNG SOUNDS THROUGHOUT. ABDOMEN WAS ROUND, SOFT, AND NON-TENDER WITH NORMAL BOWEL SOUNDS NOTED IN ALL QUADRANTS. RIGHT FOOT CONTINUED WITH BRUISING AND 1+ PITTING EDEMA. HER VITALS WERE 97.5-128-20-93%NC-136/74. LABS WERE OBTAINED. ABNORMAL LAB VALUES INCLUDED THE FOLLOWING: HGB 11.6, HCT 33.9, CREATININE 1.06, GLUCOSE 119, CALCIUM 8.0, TOTAL PROTEIN 6.3, ALBUMIN 2.7. URINE CULTURE REPORTED NO GROWTH. WE DISCONTINUED THE LOPRESSOR AND STARTED SOTOLOL 40MG PO BID. WE CONTINUED WITH PHYSICAL THERAPY AND CONTINUED TO MONITOR PATIENT. DAY FIVE, SHE BECAME COMBATIVE AND CONFUSED THROUGHOUT THE NIGHT AND WAS PLACED IN RESTRAINTS FOR SAFETY OF PATIENT AND STAFF. STAFF REPORTED THAT PATIENT WAS THROWING MEDICAL EQUIPMENT AND HITTING STAFF. SHE WAS LYING IN BED WITH EYES CLOSED ON MORNING ROUNDS. SHE AWAKENED AND RESPONDED EASILY TO VERBAL STIMULI. SHE CONTINUED WITH COMPLAINTS OF GENERALIZED WEAKNESS AND RIGHT FOOT AND KNEE PAIN. HER HEART RATE REMAINED ELEVATED THE DAY BEFORE. SHE WAS ALSO NOTED WITH AN INCREASED IN BLOOD PRESSURE. HER HOME MEDICATION OF AMLODIPINE WAS RESTARTED AND ALSO GIVEN A DOSE OF CATAPRES 0.1MG PO. SHE WAS LATER NOTED WITH A DECREASE IN BLOOD PRESSURE. STAFF REPORTED ONLY ADMINISTERING A HALF DOSE OF SOTOLOL LAST NIGHT. ON EXAMINATION, SHE CONTINUED TO BE TACHYCARDIC WITH HEART RATE NOTED TO BE IN THE 120S. SUPERVISOR VENDOR QUALITY REVEALED ATRIAL FIBRILLATION. BILATERAL LUNGS WERE NOTED WITH DIMINISHED LUNG SOUNDS THROUGHOUT. ABDOMEN WAS ROUND, SOFT, AND NON-TENDER WITH NORMAL BOWEL SOUNDS NOTED IN ALL QUADRANTS. RIGHT FOOT CONTINUED WITH BRUISING AND EDEMA. HER VITALS WERE 97.7-120-17-95%- 127/71. LABS WERE OBTAINED. ABNORMAL LAB VALUES INCLUDED THE FOLLOWING: RBC 3.45 , HGB 11.2, HCT 32.0, GLUCOSE 130, CALCIUM 8.1, ALBUMIN 2.8. WE DISCONTINUED THE AMLODIPINE AND CATAPRES AND INCREASED THE SOTOLOL TO 80MG PO BID. WE CONTINUED WITH PHYSICAL THERAPY AND CONTINUED TO MONITOR PATIENT. DAY SIX, SHE WAS ALERT AND ORIENTED, LYING IN BED ON MORNING ROUNDS. SHE CONTINUED WITH COMPLAINTS OF GENERALIZED WEAKNESS AND RIGHT FOOT AND KNEE PAIN. SHE ALSO REPORTED SHORTNESS OF BREATH AND DIZZINESS AT TIMES. HER HEART RATE WAS BETTER CONTROLLED AFTER INCREASING THE SOTOLOL TO 80MG PO BID, BUT CONTINUED TO REMAIN SLIGHTLY ELEVATED. ON EXAMINATION, SHE CONTINUED TO BE TACHYCARDIC WITH HEART RATE NOTED TO BE IN THE 120S. SUPERVISOR VENDOR QUALITY REVEALED ATRIAL FIBRILLATION. BILATERAL LUNGS WERE NOTED WITH DIMINISHED LUNG SOUNDS THROUGHOUT. ABDOMEN WAS ROUND, SOFT, AND NON-TENDER WITH NORMAL BOWEL SOUNDS NOTED IN ALL QUADRANTS. RIGHT FOOT CONTINUED WITH BRUISING AND EDEMA. HER VITALS WERE 98.3-122-20-98%-119/61. LABS WERE OBTAINED. ABNORMAL LAB VALUES INCLUDED THE FOLLOWING: RBC 3.34, HGB 10.9, HCT 30.8, SODIUM 135, BUN 20, CREATININE 1.11, CALCIUM 7.8, TOTAL PROTEIN 5.5, ALBUMIN 2.4. WE CONTINUED TREATMENT. DAY SEVEN, SHE WAS LYING IN BED ON MORNING ROUNDS. SHE WAS DISORIENTED AND AGITATED. FAMILY REPORTED THAT SHE HAD BEEN GETTING OUT OF BED AND PULLING AT WIRES AND IV LINES THROUGHOUT THE NIGHT. SHE CONTINUED WITH COMPLAINTS OF GENERALIZED WEAKNESS AND RIGHT FOOT AND KNEE PAIN. HER HEART RATE AND BLOOD PRESSURE REMAINED STABLE THROUGHOUT THE NIGHT. ON EXAMINATION, SHE CONTINUED TO BE TACHYCARDIC WITH HEART RATE NOTED TO BE 110-120S. BILATERAL LUNGS WERE NOTED WITH DIMINISHED LUNG SOUNDS THROUGHOUT. ABDOMEN WAS ROUND, SOFT, AND NON-TENDER WITH NORMAL BOWEL SOUNDS NOTED IN ALL QUADRANTS. RIGHT FOOT CONTINUED WITH BRUISING AND EDEMA. SWELLING HAD SLIGHTLY DECREASED. HER VITALS WERE 97.6-120-20 -100%nc-182/76. LABS WERE OBTAINED. ABNORMAL LAB VALUES INCLUDED THE FOLLOWING: RBC 3.34, HGB 10.9, HCT 30.8, BUN 20, CREATININE 1.14, GLUCOSE 115, CALCIUM 8.1 , TOTAL PROTEIN 6.0, ALBUMIN 2.7. PHYSICAL THERAPY CONTINUED TO WORK WITH PATIENT. WE STARTED HALDOL 1-2MG IV Q4H PRN AGITATION AND CONTINUED TO MONITOR PATIENT. DAY EIGHT, PATIENT WAS DOING BETTER. SHE WAS NOTED WITH LESS AGITATION. SHE ANSWERED QUESTIONS APPROPRIATELY. VITAL SIGNS STABLE. HEART RATE 88, BLOOD PRESSURE 152/78. LABS WNL. PATIENT REPORTED PAIN TO RIGHT FOOT AND KNEE WAS IMPROVED. WE PLANNED FOR DISCHARGE. INSTRUCTIONS FOR MEDICATIONS AND FOLLOW UP WERE DISCUSSED WITH PATIENT AND FAMILY, BOTH VOICED UNDERSTANDING. PATIENT DISCHARGED HOME IN STABLE CONDITION WITH FAMILY. - Discharge Medications Discharge Medications: Home Medication List albuterol sulfate 1 vial INHALATION Q4H 06/10/18 [History] furosemide 1 tab PO BID 06/10/18 [History] ipratropium-albuterol 1 puff INHALATION QID 06/10/18 [History] ondansetron 1 tab PO Q8H PRN 06/10/18 [History] digoxin [Lanoxin] 0.125 mg PO DAILY #30 tab 06/17/18 [Rx] sotalol 80 mg PO BID #60 tab 06/17/18 [Rx] Prescriptions: digoxin [Lanoxin] Mika Rivera sotalol Mika Rivera Home medications ranitidine HCl 1 tab PO DAILY 05/16/17 warfarin 5 mg PO DAILY #30 tab 05/20/17 olanzapine [Zyprexa] 2.5 mg PO DAILY@1800 #0 tab 06/24/18 - Discharge Disposition Discharge Disposition: Patient is to follow up in our office in one week; with Dr. Guzman when appt is available; with Dr. Kearney in one week.
== END 2018-06-17 13:40 | disposition home health service (06) | DRG 312 ==
LOC: MED/SURG
PROVIDERS: ADMIT Internal Medicine; ATTEND Internal Medicine
DX: R26.89 Other abnormalities of gait and mobility; F41.8 Other specified anxiety disorders; E87.6 Hypokalemia; R55 Syncope and collapse; Z78.1 Physical restraint status; E03.8 Other specified hypothyroidism; S92.351A Displaced fracture of fifth metatarsal bone, right foot, initial encounter for closed fracture; R51 Headache; I48.2 Chronic atrial fibrillation; R29.6 Repeated falls; I10 Essential (primary) hypertension; R42 Dizziness and giddiness; R53.1 Weakness; M25.572 Pain in left ankle and joints of left foot
CPT/HCPCS: 36415; 70450; 71010; 71045; 73560; 73590; 73610; 73630; 80053; 80162; 81001; 82550; 82553; 83735; 84132; 84484; 85025; 85610; 87086; 93005; 94760; 97162; 97167; 97530; 97535; 97760; A4216; A4222; Q0177; G0378; J1630; J1650; J7030

== ENCOUNTER 2018-06-22 02:10 | Observation (INO) ==
--- NOTE | 2018-06-22 02:27 | DR.HTN ---
HPI Time Seen Time seen: 02:27 HPI Comment HPI Comment: PATIENT WAS UPSET AT HOME DUE TO HER CHILDREN UP SETTING. SHE INTENSIONAL FELL TO GAIN THEIR ATTENSION. PATIENT SAID BP IS UP DUE TO STOPPING AMLODIPINE. MEDICATION STOP RECENTLY. Complaints Chief Complaint Doctors Comments: FELL AT HOME. BP ELEVATED. LACERATION LEFT ELBOW. Reviewed Nurses Notes Reviewed: Yes Source History Provided: Patient Mode of Arrival Mode of Arrival: Wheelchair Timing Onset of Chief Complaint: 06/22/18 Severity Severity: Moderate Context History of: Hypertension Treatment of HTN Prior to Arrival: Taking meds as prescribed and Recent Cessation Associated Signs and Symptoms HTN Associated Signs and Symptoms: Headache and Dizziness PMH PMH Past Medical History: Arthritis, Coronary Artery Disease, GERD and Hypertension Past Surgical History: Yes Surgical History: Carotid Endarterectomy, Hysterectomy and Other Family History Family Medical History: Coronary Artery Disease and Hypertension Social History Do you use any recreational Drugs:: No ROS Review of Systems Constitutional: No Symptoms Reported Eyes: No Symptoms Reported ENTM: No Symptoms Reported Respiratoy: Short of Breath; negative Wheezing and Hemoptysis Cardiovascular: Edema Gastrointestinal/Abdominal: No Symptoms Reported Genitourinary: No Symptoms Reported Musculoskeletal: Left and Elbow Integumentary: No Symptoms Reported and Change in Color PE Vital Signs Vitals: Temperature 99 F Pulse Rate [Apical] 66 Pulse Rate 68 Respiratory Rate 18 Blood Pressure [Left Arm] 178/76 Blood Pressure [Right Arm] 188/84 Blood Pressure 244/106 O2 Sat by Pulse Oximetry 97 MDM Differential Diagnosis Differential Diagnosis: CHF and Hypertensive urgency Differential Diagnosis Comment: CHF, HEALING FOOT FRACTURE WITH TOE DISCOLORATION. COURSE Treatment Treatment: SEE ORDERS. Education/Counseling Education/Counseling: Patient and Education Educated On: Diagnosis and Needs for Follow Up ROR Labs Reviewed Laboratory Results Reviewed?: Yes Result Diagrams: 06/22/18 03:10 06/22/18 03:10 Laboratory: WBC 7.8 X10^3/uL (3.6-10.0) 06/22/18 03:10 RBC 3.36 X10^6/uL (3.5-5.4) L 06/22/18 03:10 Hgb 10.9 g/dL (12.0-16.0) L 06/22/18 03:10 Hct 31.1 % (36.0-47.0) L 06/22/18 03:10 MCV 92.6 fL (80.0-100.0) 06/22/18 03:10 MCH 32.6 pg (27.0-34.0) 06/22/18 03:10 MCHC 35.2 g/dL (33.0-35.0) H 06/22/18 03:10 RDW 14.6 % (11.6-16.5) 06/22/18 03:10 Plt Count 383 X10^3/uL (150.0-450.0) 06/22/18 03:10 MPV 8.2 fL (7.4-11.0) 06/22/18 03:10 Neut % (Auto) 69.2 % (42.0-75.0) 06/22/18 03:10 Lymph % (Auto) 16.5 % (21.0-51.0) L 06/22/18 03:10 [place] % (Auto) 9.9 % (0.0-13.0) 06/22/18 03:10 Eos % (Auto) 2.7 % (0.9-2.9) 06/22/18 03:10 Baso % (Auto) 1.7 % (0.2-1.0) H 06/22/18 03:10 Neut # (Auto) 5.4 x10^3/uL (2.2-4.8) H 06/22/18 03:10 Lymph # (Auto) 1.3 X10^3/uL (1.3-2.9) 06/22/18 03:10 [place] # (Auto) 0.8 x10^3/uL (0.3-0.8) 06/22/18 03:10 Eos # (Auto) 0.2 x10^3/uL (0.0-0.2) 06/22/18 03:10 Baso # (Auto) 0.1 X10^3/uL (0.0-0.1) 06/22/18 03:10 Absolute Nucleated RBC 0.0 /100WBC 06/22/18 03:10 Sodium 137 mmol/L (136-145) 06/22/18 03:10 Corrected Sodium TNP 06/22/18 03:10 Potassium 4.2 mmol/L (3.5-5.1) 06/22/18 03:10 Chloride 103 mmol/L (98-107) 06/22/18 03:10 Carbon Dioxide 24.7 mmol/L (21-32) 06/22/18 03:10 BUN 23 mg/dL (7-18) H 06/22/18 03:10 Creatinine 1.16 mg/dL (0.55-1.02) H 06/22/18 03:10 Est GFR (MDRD) Af Amer 57 (>60) L 06/22/18 03:10 Est GFR (MDRD) Non-Af 47 (>60) L 06/22/18 03:10 Glucose 106 mg/dL (65-99) H 06/22/18 03:10 Calcium 8.5 mg/dL (8.5-10.1) 06/22/18 03:10 Corrected Calcium 9.3 mg/dL (8.5-10.1) 06/22/18 03:10 Total Bilirubin 0.70 mg/dL (0.2-1.0) 06/22/18 03:10 AST 47 Units/L (15-37) H 06/22/18 03:10 ALT 37 Units/L (12-78) 06/22/18 03:10 Alkaline Phosphatase 80 Units/L (46-116) 06/22/18 03:10 Creatine Kinase 130 Units/L (26-192) 06/22/18 03:10 CK-MB (CK-2) 1.2 ng/mL (0-4.0) 06/22/18 03:10 CK/CKMB % Calc 0.9 % (<4) 06/22/18 03:10 Troponin I 0.02 ng/mL (0-1.5) 06/22/18 03:10 B-Natriuretic Peptide 786 pg/mL (0-79) H* 06/22/18 03:22 Total Protein 6.7 g/dL (6.4-8.2) 06/22/18 03:10 Albumin 3.0 g/dL (3.4-5.0) L 06/22/18 03:10 Globulin 3.7 g/dL (2.5-4.5) 06/22/18 03:10 Albumin/Globulin Ratio 0.8 Ratio (1.1-2.1) L 06/22/18 03:10 Specimen Type Catherized urine 06/22/18 03:00 Urine Color Pale yellow (YELLOW) 06/22/18 03:00 Urine Appearance Clear (CLEAR) 06/22/18 03:00 Urine pH 6.5 (5.0 - 8.0) 06/22/18 03:00 Ur Specific [place] 1.010 (1.000-1.030) 06/22/18 03:00 Urine Protein Negative (NEGATIVE) 06/22/18 03:00 Urine Glucose (UA) Negative (NEGATIVE) 06/22/18 03:00 Urine Ketones Negative (NEGATIVE) 06/22/18 03:00 Urine Occult Blood Negative (NEGATIVE) 06/22/18 03:00 Urine Nitrite Negative (NEGATIVE) 06/22/18 03:00 Urine Bilirubin Negative (NEGATIVE) 06/22/18 03:00 Urine Urobilinogen Normal (NORMAL) 06/22/18 03:00 Ur Leukocyte Esterase Negative (NEGATIVE) 06/22/18 03:00 XRAY XRAY Interpreted by: Radiologist XRAY Findings: REPORT DISCUSS WITH PATIENT EKG Rate: 67 [place]: Normal Rhythm: NSR Block: IVCD ST: Nonsp Diagnosis Discharge Problem: Uncontrolled hypertension, CHF (congestive heart failure), Closed fracture of foot with routine healing
[2018-06-22 02:37] VITALS: BMI 27.4
[2018-06-22] MEDS ORDERED: CATAPRES TAB 0.2 MG ONE (02:41)
[2018-06-22] MEDS ORDERED: LASIX IVP ONE ×2 (02:41)
[2018-06-22] MEDS ORDERED: NIFEDIPINE CAP 10 MG ONE (02:50)
[2018-06-22] MEDS ORDERED: NORVASC TAB 10 MG PO ONE (03:01)
[2018-06-22] MEDS ORDERED: NORVASC TAB 5 MG ONE (03:04)
[2018-06-22] MEDS ORDERED: PROCARDIA XL PO ONE (03:15)
[2018-06-22 03:20] LABS: BASOPHILS # (AUTO) 0.1 X10^3/uL (0.0-0.1); BASOPHILS % (AUTO) 1.7 % (0.2-1.0); EOSINOPHILS # (AUTO) 0.2 x10^3/uL (0.0-0.2); EOSINOPHILS % (AUTO) 2.7 % (0.9-2.9); HEMATOCRIT 31.1 % (36.0-47.0); HEMOGLOBIN 10.9 g/dL (12.0-16.0); LYMPHOCYTES # (AUTO) 1.3 X10^3/uL (1.3-2.9); LYMPHOCYTES % (AUTO) 16.5 % (21.0-51.0); MEAN CORPUSCULAR HEMOGLOBIN 32.6 pg (27.0-34.0); MEAN CORPUSCULAR HGB CONC 35.2 g/dL (33.0-35.0); MEAN CORPUSCULAR VOLUME 92.6 fL (80.0-100.0); MEAN PLATELET VOLUME 8.2 fL (7.4-11.0); MONOCYTES # (AUTO) 0.8 x10^3/uL (0.3-0.8); MONOCYTES % (AUTO) 9.9 % (0.0-13.0); NEUTROPHILS # (AUTO) 5.4 x10^3/uL (2.2-4.8); NEUTROPHILS % (AUTO) 69.2 % (42.0-75.0); PLATELET COUNT 383 X10^3/uL (150.0-450.0); RED BLOOD COUNT 3.36 X10^6/uL (3.5-5.4); RED CELL DISTRIBUTION WIDTH 14.6 % (11.6-16.5); WHITE BLOOD COUNT 7.8 X10^3/uL (3.6-10.0)
[2018-06-22 03:29] LABS: BILIRUBIN,URINE NEGATIVE (NEGATIVE); BLOOD/HEMOGLOBIN,URINE NEGATIVE (NEGATIVE); GLUCOSE, URINE NEGATIVE (NEGATIVE); KETONES,URINE NEGATIVE (NEGATIVE); LEUKOCYTE ESTERASE ,URINE NEGATIVE (NEGATIVE); NITRITES,URINE NEGATIVE (NEGATIVE); PH,URINE 6.5 (5.0 - 8.0); PROTEIN,URINE NEGATIVE (NEGATIVE); UROBILINOGEN,URINE NORMAL (NORMAL)
[2018-06-22 03:32] LABS: BLOOD UREA NITROGEN 23 mg/dL (7-18); CALCIUM 8.5 mg/dL (8.5-10.1); CARBON DIOXIDE 24.7 mmol/L (21-32); CHLORIDE 103 mmol/L (98-107); CREATININE 1.16 mg/dL (0.55-1.02); SODIUM 137 mmol/L (136-145); TROPONIN I 0.02 ng/mL (0-1.5); eGFR NON BLACK RACES 47 (>60)
[2018-06-22 03:36] LABS: ALANINE AMINOTRANSFERASE 37 Units/L (12-78); ALKALINE PHOSPHATASE 80 Units/L (46-116); ASPARTATE AMINO TRANSFERASE 47 Units/L (15-37); CKMB % 0.9 % (<4); COR CA(FOR HYPOALB) 9.3 mg/dL (8.5-10.1); CREATINE KINASE 130 Units/L (26-192); CREATINE KINASE MB 1.2 ng/mL (0-4.0); TOTAL PROTEIN 6.7 g/dL (6.4-8.2)
[2018-06-22 03:41] LABS: APPEARANCE,URINE CLEAR (CLEAR); COLOR,URINE PALE YELLOW (YELLOW)
--- NOTE | 2018-06-22 06:25 | RAD ---
This chest AP portable Indication: Hypertension Comparison: 06/11/2018 Findings: There is no pneumothorax or effusion. There is cardiomegaly with sternotomy change. Overlyi ng monitoring leads obscure detail. No overt edema seen. Small effusions are possible. Impression: Cardiomegaly and chronic lung changes with possible effusions. No dense consolidation see n. Reported By:
[2018-06-22 09:10] LABS: CKMB % 1.2 % (<4); CREATINE KINASE MB 1.1 ng/mL (0-4.0); TROPONIN I 0.02 ng/mL (0-1.5)
[2018-06-22 15:03] LABS: CKMB % 1.4 % (<4); CREATINE KINASE MB 1.1 ng/mL (0-4.0); TROPONIN I 0.03 ng/mL (0-1.5)
[2018-06-22] MEDS: TYLENOL 325 MG TAB PO PRN (17:01)
[2018-06-22] MEDS: COLACE CAP 100 MG PO SCH ×2 (21:14→21:41)
[2018-06-22] MEDS: MILK OF MAGNESIA PO SCH ×2 (21:14→21:41)
[2018-06-22] MEDS: HALDOL INJ IVP PRN (22:52)
[2018-06-23] MEDS: HALDOL INJ IVP PRN ×3 (02:37→17:10)
[2018-06-23 06:11] LABS: BASOPHILS # (AUTO) 0.1 X10^3/uL (0.0-0.1); EOSINOPHILS # (AUTO) 0.1 x10^3/uL (0.0-0.2); EOSINOPHILS % (AUTO) 1.5 % (0.9-2.9); HEMATOCRIT 28.8 % (36.0-47.0); HEMOGLOBIN 10.4 g/dL (12.0-16.0); LYMPHOCYTES # (AUTO) 1.4 X10^3/uL (1.3-2.9); LYMPHOCYTES % (AUTO) 18.4 % (21.0-51.0); MEAN CORPUSCULAR HEMOGLOBIN 33.1 pg (27.0-34.0); MEAN CORPUSCULAR HGB CONC 36.2 g/dL (33.0-35.0); MEAN CORPUSCULAR VOLUME 91.3 fL (80.0-100.0); MEAN PLATELET VOLUME 7.4 fL (7.4-11.0); MONOCYTES # (AUTO) 0.7 x10^3/uL (0.3-0.8); MONOCYTES % (AUTO) 9.5 % (0.0-13.0); NEUTROPHILS # (AUTO) 5.4 x10^3/uL (2.2-4.8); NEUTROPHILS % (AUTO) 69.6 % (42.0-75.0); PLATELET COUNT 334 X10^3/uL (150.0-450.0); RED BLOOD COUNT 3.15 X10^6/uL (3.5-5.4); WHITE BLOOD COUNT 7.8 X10^3/uL (3.6-10.0)
[2018-06-23 06:38] LABS: ALANINE AMINOTRANSFERASE 26 Units/L (12-78); ALBUMIN 2.7 g/dL (3.4-5.0); ALKALINE PHOSPHATASE 75 Units/L (46-116); ASPARTATE AMINO TRANSFERASE 23 Units/L (15-37); BLOOD UREA NITROGEN 18 mg/dL (7-18); CALCIUM 8.2 mg/dL (8.5-10.1); CARBON DIOXIDE 31.3 mmol/L (21-32); CHLORIDE 104 mmol/L (98-107); CHOL/HDL RATIO 4.9 (0.0-5.0); CHOLESTEROL 168 mg/dL (0-200); COR CA(FOR HYPOALB) 9.2 mg/dL (8.5-10.1); CREATININE 1.15 mg/dL (0.55-1.02); HDL CHOLESTEROL 34 mg/dL (40-60); MAGNESIUM 1.9 mg/dL (1.7-2.9); SODIUM 141 mmol/L (136-145); TOTAL PROTEIN 5.8 g/dL (6.4-8.2); TRIGLYCERIDES 91 mg/dL (0-150); eGFR NON BLACK RACES 47 (>60)
[2018-06-23] MEDS ORDERED: PROVENTIL NEB TX 0.083% 2.5MG/ 3ML IN SCH (08:30)
[2018-06-23] MEDS ORDERED: COUMADIN TAB 5 MG PO SCH (09:00)
[2018-06-23] MEDS: PROVENTIL NEB TX 0.083% 2.5MG/ 3ML IN SCH ×4 (09:13→21:22)
[2018-06-23] MEDS: LASIX PO SCH (09:29)
[2018-06-23] MEDS: ZANTAC PO SCH (09:29)
[2018-06-23] MEDS: BETAPACE AF PO SCH ×2 (09:29→21:56)
[2018-06-23] MEDS: LANOXIN PO SCH (09:29)
[2018-06-23] MEDS: TYLENOL 325 MG TAB PO PRN (09:46)
[2018-06-23] MEDS ORDERED: LASIX IVP ONE (09:46)
[2018-06-23] MEDS ORDERED: LASIX IVP SCH (21:00)
--- NOTE | 2018-06-23 21:08 | PCM.PROG ---
Progress Note - Progress Note for Day of Date of Exam: 06/23/18 - Subjective Subjective: WAS RECENTLY DISCHARGED FROM THE HOSPITAL FOR TREATMENT OF A UTI, RIGHT FOOT FRACTURE, AND ATRIAL FIBRILLATION. FAMILY BROUGHT PATIENT BACK TO THE HOSPITAL YESTERDAY DUE TO UNCONTROLLED HYPERTENSION, SWELLING, AND ALTERED MENTAL STATUS. ON ARRIVAL TO THE ER, HER BLOOD PRESSURE WAS NOTED TO BE 244/106. TODAY, SHE IS LYING IN BED WITH EYES OPEN ON MORNING ROUNDS. SHE IS NOTED TO BE DISORIENTED THIS MORNING. FAMILY REPORTS THAT SHE HAS BEEN FALLING AT HOME. SHE REPORTS GENERALIZED WEAKNESS. ON EXAMINATION, HEART IS REGULAR IN RATE AND RHYTHM. BILATERAL LUNGS ARE NOTED WITH DIMINISHED LUNG SOUNDS THROUGHOUT. ABDOMEN IS ROUND, SOFT, AND NON-TENDER WITH NORMAL BOWEL SOUNDS NOTED IN ALL QUADRANTS. RIGHT FOOT IS NOTED WITH 1+ PITTING EDEMA AND BRUISING. HER VITALS TODAY ARE 97.7-83-18-98%-151/59. LABS WERE OBTAINED. ABNORMAL LAB VALUES INCLUDE THE FOLLOWING: RBC 3.15, HGB 10.4, HCT 28.8, INR 1.99, CREATININE 1.15, GLUCOSE 105, CALCIUM 8.2, TOTAL PROTEIN 5.8, ALBUMIN 2.7. CARDIAC ENZYMES HAVE BEEN WITHIN NORMAL LIMITS. TODAY, WE WILL GIVE LASIX 40MG IV X 2 DOSES. OTHERWISE, WE WILL CONTINUE WITH CURRENT PLAN OF CARE. WE WILL DISCUSS PLACEMENT AT [facility] WITH CASE MANAGEMENT. OTHERWISE, WE WILL FOLLOW UP WITH AM LABS AND CONTINUE TO MONITOR PATIENT. - Past Medical Family Social History Past Med/Fam/Surg Hx: No changes since H&P Allergies: Allergies amiodarone Allergy (Verified 05/16/17 21:20) clonidine [From Catapres] Allergy (Verified 06/14/18 10:29) prednisone Allergy (Verified 05/16/17 21:20) amoxicillin Adverse Reaction (Verified 05/16/17 21:20) cetirizine [From Zyrtec] Adverse Reaction (Verified 05/16/17 21:20) clavulanic acid Adverse Reaction (Verified 05/16/17 21:20) erythromycin base [From Staticin] Adverse Reaction (Verified 05/16/17 21:20) ethyl alcohol [From Staticin] Adverse Reaction (Verified 05/16/17 21:20) Sulfa (Sulfonamide Antibiotics) [SULFA] Adverse Reaction (Verified 07/28/17 21: 20) tramadol Adverse Reaction (Verified 05/16/17 21:20) zolpidem Adverse Reaction (Verified 05/16/17 21:20) - Review of Systems ROS: No change since H&P - Vital Signs and I&O's Vital Signs: Temperature 98.5 F Pulse Rate [Apical] 64 Pulse Rate 66 Respiratory Rate 18 Blood Pressure [Left Arm] 154/69 Blood Pressure [Right Arm] 180/76 Blood Pressure 244/106 O2 Sat by Pulse Oximetry 94 Intake and Output: Intake & Output 06/21/18 06/22/18 06/23/18 06/24/18 11:59 11:59 11:59 11:59 Intake Total 930 / 930 530 / 530 Output Total 2800 / 2800 850 / 850 Balance -2800 / -2800 80 / 80 530 / 530 - Physical Exam Oriented: Not Oriented Eyes: Normal Ear: Normal Nose: Normal Throat: Normal Respiratory: Diminished Cardiovascular: Edema (BILATERAL LOWER EXTREMITIES ) : Normal Auscultation: Bowel Sounds: Normal Palpation: Normal Tenderness: Normal Skin: Bruising Musculoskeletal: Right, Foot, Swelling, Tender, Instability Psychiatric: Normal Mood Description: Calm Affect: Normal Speech Pattern: Clear - Laboratory and Diagnostics Result Diagrams: 06/23/18 05:12 06/23/18 05:12 Labs: Laboratory WBC 7.8 X10^3/uL (3.6-10.0) 06/23/18 05:12 RBC 3.15 X10^6/uL (3.5-5.4) L 06/23/18 05:12 Hgb 10.4 g/dL (12.0-16.0) L 06/23/18 05:12 Hct 28.8 % (36.0-47.0) L 06/23/18 05:12 MCV 91.3 fL (80.0-100.0) 06/23/18 05:12 MCH 33.1 pg (27.0-34.0) 06/23/18 05:12 MCHC 36.2 g/dL (33.0-35.0) H 06/23/18 05:12 RDW 15.0 % (11.6-16.5) 06/23/18 05:12 Plt Count 334 X10^3/uL (150.0-450.0) 06/23/18 05:12 MPV 7.4 fL (7.4-11.0) 06/23/18 05:12 Neut % (Auto) 69.6 % (42.0-75.0) 06/23/18 05:12 Lymph % (Auto) 18.4 % (21.0-51.0) L 06/23/18 05:12 [place] % (Auto) 9.5 % (0.0-13.0) 06/23/18 05:12 Eos % (Auto) 1.5 % (0.9-2.9) 06/23/18 05:12 Baso % (Auto) 1.0 % (0.2-1.0) 06/23/18 05:12 Neut # (Auto) 5.4 x10^3/uL (2.2-4.8) H 06/23/18 05:12 Lymph # (Auto) 1.4 X10^3/uL (1.3-2.9) 06/23/18 05:12 [place] # (Auto) 0.7 x10^3/uL (0.3-0.8) 06/23/18 05:12 Eos # (Auto) 0.1 x10^3/uL (0.0-0.2) 06/23/18 05:12 Baso # (Auto) 0.1 X10^3/uL (0.0-0.1) 06/23/18 05:12 Absolute Nucleated RBC 0.1 /100WBC 06/23/18 05:12 INR Target Range - 06/23/18 05:12 INR 1.99 (0.8-1.3) H 06/23/18 05:12 Sodium 141 mmol/L (136-145) 06/23/18 05:12 Corrected Sodium TNP 06/23/18 05:12 Potassium 3.5 mmol/L (3.5-5.1) 06/23/18 05:12 Chloride 104 mmol/L (98-107) 06/23/18 05:12 Carbon Dioxide 31.3 mmol/L (21-32) 06/23/18 05:12 BUN 18 mg/dL (7-18) 06/23/18 05:12 Creatinine 1.15 mg/dL (0.55-1.02) H 06/23/18 05:12 Est GFR (MDRD) Af Amer 57 (>60) L 06/23/18 05:12 Est GFR (MDRD) Non-Af 47 (>60) L 06/23/18 05:12 Glucose 105 mg/dL (65-99) H 06/23/18 05:12 Calcium 8.2 mg/dL (8.5-10.1) L 06/23/18 05:12 Corrected Calcium 9.2 mg/dL (8.5-10.1) 06/23/18 05:12 Magnesium 1.9 mg/dL (1.7-2.9) 06/23/18 05:12 Total Bilirubin 0.50 mg/dL (0.2-1.0) 06/23/18 05:12 AST 23 Units/L (15-37) 06/23/18 05:12 ALT 26 Units/L (12-78) 06/23/18 05:12 Alkaline Phosphatase 75 Units/L (46-116) 06/23/18 05:12 Creatine Kinase 77 Units/L (26-192) 06/22/18 14:31 CK-MB (CK-2) 1.1 ng/mL (0-4.0) 06/22/18 14:31 CK/CKMB % Calc 1.4 % (<4) 06/22/18 14:31 Troponin I 0.03 ng/mL (0-1.5) 06/22/18 14:31 B-Natriuretic Peptide 786 pg/mL (0-79) H* 06/22/18 03:22 Total Protein 5.8 g/dL (6.4-8.2) L 06/23/18 05:12 Albumin 2.7 g/dL (3.4-5.0) L 06/23/18 05:12 Globulin 3.1 g/dL (2.5-4.5) 06/23/18 05:12 Albumin/Globulin Ratio 0.9 Ratio (1.1-2.1) L 06/23/18 05:12 Triglycerides 91 mg/dL (0-150) 06/23/18 05:12 Cholesterol 168 mg/dL (0-200) 06/23/18 05:12 LDL Cholesterol, Calc 116 mg/dL (0-100) H 06/23/18 05:12 HDL Cholesterol 34 mg/dL (40-60) L 06/23/18 05:12 Cholesterol/HDL Ratio 4.9 (0.0-5.0) 06/23/18 05:12 Specimen Type Catherized urine 06/22/18 03:00 Urine Color Pale yellow (YELLOW) 06/22/18 03:00 Urine Appearance Clear (CLEAR) 06/22/18 03:00 Urine pH 6.5 (5.0 - 8.0) 06/22/18 03:00 Ur Specific [place] 1.010 (1.000-1.030) 06/22/18 03:00 Urine Protein Negative (NEGATIVE) 06/22/18 03:00 Urine Glucose (UA) Negative (NEGATIVE) 06/22/18 03:00 Urine Ketones Negative (NEGATIVE) 06/22/18 03:00 Urine Occult Blood Negative (NEGATIVE) 06/22/18 03:00 Urine Nitrite Negative (NEGATIVE) 06/22/18 03:00 Urine Bilirubin Negative (NEGATIVE) 06/22/18 03:00 Urine Urobilinogen Normal (NORMAL) 06/22/18 03:00 Ur Leukocyte Esterase Negative (NEGATIVE) 06/22/18 03:00 Digoxin 0.69 ng/mL (0.9-2) L 06/23/18 05:12 - Plan (1) Uncontrolled hypertension Status: Acute (2) CHF (congestive heart failure) Status: Acute Qualifiers: Heart failure type: combined systolic and diastolic Heart failure chronicity: acute on chronic Qualified Code(s): I50.43 - Acute on chronic combined systolic (congestive) and diastolic (congestive) heart failure (3) Altered mental status Status: Acute Qualifiers: Altered mental status type: transient alteration of awareness Qualified Code(s): R40.4 - Transient alteration of awareness (4) Closed fracture of foot with routine healing Status: Acute Qualifiers: Laterality: right Qualified Code(s): S92.901D - Unspecified fracture of right foot, subsequent encounter for fracture with routine healing
[2018-06-23] MEDS: MILK OF MAGNESIA PO SCH (21:56)
[2018-06-23] MEDS: COLACE CAP 100 MG PO SCH (21:57)
[2018-06-23] MEDS: COUMADIN TAB 5 MG PO SCH (21:57)
[2018-06-24] MEDS: PROVENTIL NEB TX 0.083% 2.5MG/ 3ML IN SCH ×6 (01:22→21:41)
[2018-06-24 06:16] LABS: BASOPHILS # (AUTO) 0.1 X10^3/uL (0.0-0.1); BASOPHILS % (AUTO) 0.9 % (0.2-1.0); EOSINOPHILS # (AUTO) 0.1 x10^3/uL (0.0-0.2); EOSINOPHILS % (AUTO) 1.6 % (0.9-2.9); HEMOGLOBIN 10.7 g/dL (12.0-16.0); LYMPHOCYTES # (AUTO) 1.3 X10^3/uL (1.3-2.9); MEAN CORPUSCULAR HEMOGLOBIN 33.1 pg (27.0-34.0); MEAN CORPUSCULAR HGB CONC 35.8 g/dL (33.0-35.0); MEAN CORPUSCULAR VOLUME 92.6 fL (80.0-100.0); MEAN PLATELET VOLUME 7.5 fL (7.4-11.0); MONOCYTES # (AUTO) 0.7 x10^3/uL (0.3-0.8); MONOCYTES % (AUTO) 9.3 % (0.0-13.0); NEUTROPHILS % (AUTO) 70.2 % (42.0-75.0); PLATELET COUNT 347 X10^3/uL (150.0-450.0); RED BLOOD COUNT 3.24 X10^6/uL (3.5-5.4); WHITE BLOOD COUNT 7.1 X10^3/uL (3.6-10.0)
[2018-06-24 06:33] LABS: ALANINE AMINOTRANSFERASE 25 Units/L (12-78); ALBUMIN 2.8 g/dL (3.4-5.0); ALKALINE PHOSPHATASE 75 Units/L (46-116); ASPARTATE AMINO TRANSFERASE 20 Units/L (15-37); BLOOD UREA NITROGEN 15 mg/dL (7-18); CALCIUM 8.2 mg/dL (8.5-10.1); CARBON DIOXIDE 31.4 mmol/L (21-32); CHLORIDE 104 mmol/L (98-107); COR CA(FOR HYPOALB) 9.2 mg/dL (8.5-10.1); CREATININE 1.21 mg/dL (0.55-1.02); DIGOXIN 0.83 ng/mL (0.9-2); SODIUM 142 mmol/L (136-145); TOTAL PROTEIN 5.9 g/dL (6.4-8.2); eGFR NON BLACK RACES 45 (>60)
[2018-06-24] MEDS ORDERED: POTASSIUM CHLORIDE LIQ 20 MEQ UDC PO PRN (07:25)
[2018-06-24] MEDS ORDERED: K-LYTE EFFERVESCENT PO PRN (07:25)
[2018-06-24] MEDS ORDERED: POTASSIUM CHL 40 MEQ/NS 0.45% 500 ML IV PRN (07:25)
[2018-06-24] MEDS ORDERED: POTASSIUM CHL 60 MEQ/NS 0.45% 500 ML IV PRN ×2 (07:25→21:53)
[2018-06-24] MEDS ORDERED: K-RIDER 10 MEQ/NS 100 ML 10 MEQ/100 ML BAG IV PRN (07:25)
[2018-06-24] MEDS: LANOXIN PO SCH (09:12)
[2018-06-24] MEDS: BETAPACE AF PO SCH ×2 (09:12→20:28)
[2018-06-24] MEDS: ZANTAC PO SCH (09:13)
[2018-06-24] MEDS ORDERED: NS 500 ML IV 500 ML IV ONE (09:42)
[2018-06-24] MEDS: HALDOL INJ IVP PRN (11:25)
--- NOTE | 2018-06-24 11:51 | DR.H&P ---
H&P - History & Physical for Day of: H&P Date: 06/22/18 - Chief Complaint Chief Complaint: FALLS, HYPERTENSION, SHORTNESS OF BREATH, AGITATION - History of Present Illness History of Present Illness: IS A 87 YEAR OLD PATIENT OF OURS WHO PRESENTED TO THE HOSPITAL FOR COMPLAINTS OF FALLING AT HOME, ELEVATED BLOOD PRESSURE, A LEFT ELBOW LACERATION, SHORTNESS OF BREATH, AND ALTERED MENTAL STATUS. PATIENT WAS RECENTLY DISCHARGED FROM THE HOSPITAL FOR TREATMENT OF ATRIAL FIBRILLATION, UTI, AND A RIGHT FOOT METATARSAL FRACTURE FOLLOWING A FALL. FAMILY REPORTS THAT SINCE RETURNING HOME, SHE HAS CONTINUED WITH AGITATION AND ALTERED MENTAL STATUS. THEY REPORT THAT SHE FELL AT HOME AGAIN PRIOR TO ARRIVAL AND HIT HER ELBOW. ON ARRIVAL, VITALS WERE 99.0-68-18-97%-244/ 106. LABS WERE OBTAINED. ABNORMAL LAB VALUES INCLUDE THE FOLLOWING: RBC 3.36, HGB 10.9, HCT 31.1, INR 2.04, BUN 23, CREATININE 1.16, GLUCOSE 106, AST 47, BNP 786, ALBUMIN 3.0, DIGOXIN 0.78. CARDIAC ENZYMES WITHIN NORMAL LIMITS. URINALYSIS IS UNREMARKABLE. A CHEST XRAY WAS OBTAINED AND REVEALED CARDIOMEGALY AND CHRONIC LUNG CHANGES WITH POSSIBLE EFFUSIONS. NO DENSE CONSOLIDATION SEEN. EKG REVEALED: SINUS RHYTHM WITH HR 67. RIGHT FOOT CONTINUES WITH 1+ PITTING EDEMA AND BRUISING. A DALE CATHETER WAS PLACED IN THE ER. HER BLOOD PRESSURE EVENTUALLY DECREASED TO 180/76. LEFT ELBOW LACERATION WAS REPAIRED WITH SUTURES IN THE ER. SHE WAS ADMITTED TO THE HOSPITAL FOR FURTHER EVALUATION AND TREATMENT. SHE WAS STARTED ON HALDOL 2MG IV Q4H PRN FOR AGITATION AND HOME MEDICATIONS WERE RESUMED. WE PLANNED TO FOLLOW UP WITH AM LABS AND CONTINUE TO MONITOR PATIENT. 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, - Past Surgical History Surgical History: Carotid Endarterectomy, Hysterectomy Additional Surgical History: LEFT CAROTID SURGERY - Family History Family Medical History: Hypertension - Social History Does patient currently use any type of tobacco product: No Have you used tobacco products in the last 12 months: No Type of Tobacco Use: None Does any household member use tobacco: No Alcohol Use: None Drug Use: None - Medications Home Medications: amiodarone Allergy (Verified 05/16/17 21:20) clonidine [From Catapres] Allergy (Verified 06/14/18 10:29) prednisone Allergy (Verified 05/16/17 21:20) amoxicillin Adverse Reaction (Verified 05/16/17 21:20) cetirizine [From Zyrtec] Adverse Reaction (Verified 05/16/17 21:20) clavulanic acid Adverse Reaction (Verified 05/16/17 21:20) erythromycin base [From Staticin] Adverse Reaction (Verified 05/16/17 21:20) ethyl alcohol [From Staticin] Adverse Reaction (Verified 05/16/17 21:20) Sulfa (Sulfonamide Antibiotics) [SULFA] Adverse Reaction (Verified 05/16/17 21: 20) tramadol Adverse Reaction (Verified 05/16/17 21:20) zolpidem Adverse Reaction (Verified 05/16/17 21:20) - Review of Systems Constitutional: Weakness Eyes: No Symptoms Reported ENT: No Symptoms Reported Respiratory: Shortness of Breath Cardiovascular: Edema (BILATERAL LOWER EXTREMITIES ) Gastrointestinal: No Symptoms Reported Genitourinary: No Symptoms Reported Musculoskeletal: Foot Pain (RIGHT FOOT PAIN ) Skin: Wound (LEFT ELBOW LACERATEION ) Neurological: Weakness, Incoordination, Confusion - Physical Exam Vital Signs: Temperature 98.8 F Pulse Rate [Apical] 64 Pulse Rate 67 Respiratory Rate 18 Blood Pressure [Left Arm] 184/96 Blood Pressure [Right Arm] 180/76 Blood Pressure 244/106 O2 Sat by Pulse Oximetry 95 Oriented: Not Oriented Eyes: Normal Ear: Normal Nose: Normal Throat: Normal Respiratory: Diminished Throughout Cardiovascular: Edema (BIALTERAL LOWER EXTREMITIES 1+ PITTING EDEMA ) : Normal Auscultation: Bowel Sounds: Normal Palpation: Normal Tenderness: Normal Skin: Wound (LEFT ELBOW LACERATION, REPAIRED WITH SUTURES ), Bruising (RIGHT FOOT ) Musculoskeletal: Right, Ankle, Foot, Swelling, Tender Psychiatric: Agitation Mood Description: Angry, Anxious Affect: Angry, Anxious Speech Pattern: Inappropriate - Assessment/Plan (1) Uncontrolled hypertension Status: Acute (2) CHF (congestive heart failure) Qualifiers: Heart failure type: combined systolic and diastolic Heart failure chronicity: acute on chronic Qualified Code(s): I50.43 - Acute on chronic combined systolic (congestive) and diastolic (congestive) heart failure Status: Acute (3) Altered mental status Qualifiers: Altered mental status type: transient alteration of awareness Qualified Code(s): R40.4 - Transient alteration of awareness Status: Acute (4) Closed fracture of foot with routine healing Qualifiers: Laterality: right Qualified Code(s): S92.901D - Unspecified fracture of right foot, subsequent encounter for fracture with routine healing Status: Acute - Allergies Allergies/Adverse Reactions: Allergies Allergy/AdvReac Type Severity Reaction Status Date / Time amiodarone Allergy Verified 05/16/17 21:20 clonidine [From Catapres] Allergy Verified 06/14/18 10:29 prednisone Allergy Verified 05/16/17 21:20 amoxicillin AdvReac Verified 05/16/17 21:20 cetirizine [From Zyrtec] AdvReac Verified 05/16/17 21:20 clavulanic acid AdvReac Verified 05/16/17 21:20 erythromycin base AdvReac Verified 05/16/17 21:20 [From Staticin] ethyl alcohol [From Staticin] AdvReac Verified 05/16/17 21:20 Sulfa (Sulfonamide AdvReac Verified 05/16/17 21:20 Antibiotics) [SULFA] tramadol AdvReac Verified 05/16/17 21:20 zolpidem AdvReac Verified 05/16/17 21:20
[2018-06-24] MEDS: TYLENOL 325 MG TAB PO PRN (13:05)
[2018-06-24] MEDS: NORVASC TAB 5 MG PO SCH (14:10)
[2018-06-24] MEDS: COUMADIN TAB 5 MG PO SCH (20:28)
[2018-06-24] MEDS: COLACE CAP 100 MG PO SCH (20:28)
[2018-06-24] MEDS: MILK OF MAGNESIA PO SCH (20:29)
[2018-06-24] MEDS: MAGNESIUM SULFATE 1 GRAM/100 mL PREMIX 1 GM/100 ML BAG IV PRN ×2 (22:29→23:30)
[2018-06-25] MEDS: HALDOL INJ IVP PRN ×3 (00:28→20:33)
[2018-06-25] MEDS: PROVENTIL NEB TX 0.083% 2.5MG/ 3ML IN SCH ×6 (00:41→20:34)
[2018-06-25] MEDS ORDERED: ZOFRAN INJ 4 MG VIAL IVP PRN (02:35)
[2018-06-25 05:09] LABS: BASOPHILS # (AUTO) 0.1 X10^3/uL (0.0-0.1); BASOPHILS % (AUTO) 0.8 % (0.2-1.0); EOSINOPHILS # (AUTO) 0.2 x10^3/uL (0.0-0.2); EOSINOPHILS % (AUTO) 2.9 % (0.9-2.9); HEMATOCRIT 32.1 % (36.0-47.0); HEMOGLOBIN 11.2 g/dL (12.0-16.0); LYMPHOCYTES # (AUTO) 1.4 X10^3/uL (1.3-2.9); LYMPHOCYTES % (AUTO) 18.3 % (21.0-51.0); MEAN CORPUSCULAR HEMOGLOBIN 32.6 pg (27.0-34.0); MEAN CORPUSCULAR HGB CONC 34.9 g/dL (33.0-35.0); MEAN CORPUSCULAR VOLUME 93.4 fL (80.0-100.0); MEAN PLATELET VOLUME 7.5 fL (7.4-11.0); MONOCYTES # (AUTO) 0.8 x10^3/uL (0.3-0.8); MONOCYTES % (AUTO) 10.9 % (0.0-13.0); NEUTROPHILS % (AUTO) 67.1 % (42.0-75.0); PLATELET COUNT 380 X10^3/uL (150.0-450.0); RED BLOOD COUNT 3.44 X10^6/uL (3.5-5.4); RED CELL DISTRIBUTION WIDTH 15.2 % (11.6-16.5); WHITE BLOOD COUNT 7.4 X10^3/uL (3.6-10.0)
[2018-06-25 05:22] LABS: ALBUMIN 2.8 g/dL (3.4-5.0); CALCIUM 8.3 mg/dL (8.5-10.1); COR CA(FOR HYPOALB) 9.3 mg/dL (8.5-10.1); CREATININE 1.17 mg/dL (0.55-1.02); DIGOXIN 0.83 ng/mL (0.9-2); MAGNESIUM 2.7 mg/dL (1.7-2.9); TOTAL PROTEIN 6.1 g/dL (6.4-8.2)
[2018-06-25] MEDS: LANOXIN PO SCH (08:46)
[2018-06-25] MEDS: BETAPACE AF PO SCH ×2 (08:47→20:32)
[2018-06-25] MEDS: NORVASC TAB 5 MG PO SCH (08:47)
[2018-06-25] MEDS: ZANTAC PO SCH (08:47)
[2018-06-25] MEDS ORDERED: LASIX IVP SCH (09:00)
--- NOTE | 2018-06-25 09:32 | PCM.PROG ---
Progress Note - Progress Note for Day of Date of Exam: 06/24/18 - Subjective Subjective: WAS ADMITTED DUE TO UNCONTROLLED HYPERTENSION, SWELLING, AND ALTERED MENTAL STATUS. HER BLOOD PRESSURE HAS DECREASED, SINCE ADMISSION, BUT HAS REMAINED SLIGHTLY ELEVATED. WE STARTED AMLODIPINE 5MG PO TODAY. SINCE STARTING THE AMLODIPINE, BLOOD PRESSURE HAS DECREASED AND IS NOW STABLE. ON MORNING ROUNDS, SHE WAS LYING IN BED WITH EYES OPEN ON MORNING ROUNDS. FAMILY REPORTS THAT SHE WAS AGITATED AND SLIGHTLY CONFUSED THROUGHOUT THE NIGHT, BUT APPEARS TO BE BETTER THIS MORNING. SHE CONTINUES WITH GENERALIZED WEAKNESS, BUT DENIES SHORTNESS OF BREATH THIS MORNING. ON EXAMINATION, HEART WAS REGULAR IN RATE AND RHYTHM. BILATERAL LUNGS NOTED WITH DIMINISHED LUNG SOUNDS THROUGHOUT. ABDOMEN IS ROUND, SOFT, AND NON-TENDER WITH NORMAL BOWEL SOUNDS NOTED IN ALL QUADRANTS. RIGHT FOOT IS NOTED WITH TRACE EDEMA AND BRUISING. HER VITALS TODAY ARE 98.8-64-18-94%-184/96. LABS WERE OBTAINED. ABNORMAL LAB VALUES INCLUDE THE FOLLOWING: RBC 3.24, HGB 10.7, HCT 30.0, INR 2.04, POTASSIUM 3.2, CREATININE 1.21, CALCIUM 8.2, TOTAL PROTEIN 5.9, ALBUMIN 2.8. CARDIAC ENZYMES HAVE BEEN WITHIN NORMAL LIMITS. WE RESTARTED HER LASIX BY MOUTH TODAY. WE ALSO STARTED ZYPREXA 2.5MG PO HS TO HELP HER REST AT NIGHT. OTHERWISE, WE WILL CONTINUE WITH CURRENT PLAN OF CARE. WE WILL CONTACT BEHAVIORAL CARE FOR FURTHER EVALUATION. PATIENT IS STABLE AND MEDICALLY CLEAR FOR TRANSFER. OTHERWISE, WE WILL FOLLOW UP WITH AM LABS AND CONTINUE TO MONITOR PATIENT. - Past Medical Family Social History Past Med/Fam/Surg Hx: No changes since H&P Allergies: Allergies amiodarone Allergy (Verified 05/16/17 21:20) clonidine [From Catapres] Allergy (Verified 06/14/18 10:29) prednisone Allergy (Verified 05/16/17 21:20) amoxicillin Adverse Reaction (Verified 05/16/17 21:20) cetirizine [From Zyrtec] Adverse Reaction (Verified 05/16/17 21:20) clavulanic acid Adverse Reaction (Verified 05/16/17 21:20) erythromycin base [From Staticin] Adverse Reaction (Verified 05/16/17 21:20) ethyl alcohol [From Staticin] Adverse Reaction (Verified 05/16/17 21:20) Sulfa (Sulfonamide Antibiotics) [SULFA] Adverse Reaction (Verified 05/16/17 21: 20) tramadol Adverse Reaction (Verified 05/16/17 21:20) zolpidem Adverse Reaction (Verified 05/16/17 21:20) - Review of Systems ROS: No change since H&P - Vital Signs and I&O's Vital Signs: Temperature 98.2 F Pulse Rate [Apical] 64 Pulse Rate 65 Respiratory Rate 22 Blood Pressure [Left Arm] 147/65 Blood Pressure [Right Arm] 180/76 Blood Pressure 244/106 O2 Sat by Pulse Oximetry 94 Intake and Output: Intake & Output 06/22/18 06/23/18 06/24/18 06/25/18 11:59 11:59 11:59 11:59 Intake Total 930 / 930 790 / 790 1683 / 1683 Output Total 2800 / 2800 850 / 850 Balance -2800 / -2800 80 / 80 790 / 790 1683 / 1683 - Physical Exam Oriented: Person Eyes: Normal Ear: Normal Nose: Normal Throat: Normal Respiratory: Diminished Cardiovascular: Edema (BIALTERAL LOWER EXTREMITIES TRACE EDEMA) : Normal Auscultation: Bowel Sounds: Normal Palpation: Normal Tenderness: Normal Skin: Wound (LEFT ELBOW LACERATION, REPAIRED WITH SUTURES ), Bruising (RIGHT FOOT ) Musculoskeletal: Right, Ankle, Foot, Swelling, Tender Psychiatric: Agitation Mood Description: Angry, Anxious Affect: Angry, Anxious Speech Pattern: Clear, Appropriate - Laboratory and Diagnostics Result Diagrams: 06/25/18 04:01 06/25/18 04:01 Labs: Laboratory WBC 7.4 X10^3/uL (3.6-10.0) 06/25/18 04:01 RBC 3.44 X10^6/uL (3.5-5.4) L 06/25/18 04:01 Hgb 11.2 g/dL (12.0-16.0) L 06/25/18 04:01 Hct 32.1 % (36.0-47.0) L 06/25/18 04:01 MCV 93.4 fL (80.0-100.0) 06/25/18 04:01 MCH 32.6 pg (27.0-34.0) 06/25/18 04:01 MCHC 34.9 g/dL (33.0-35.0) 06/25/18 04:01 RDW 15.2 % (11.6-16.5) 06/25/18 04:01 Plt Count 380 X10^3/uL (150.0-450.0) 06/25/18 04:01 MPV 7.5 fL (7.4-11.0) 06/25/18 04:01 Neut % (Auto) 67.1 % (42.0-75.0) 06/25/18 04:01 Lymph % (Auto) 18.3 % (21.0-51.0) L 06/25/18 04:01 [place] % (Auto) 10.9 % (0.0-13.0) 06/25/18 04:01 Eos % (Auto) 2.9 % (0.9-2.9) 06/25/18 04:01 Baso % (Auto) 0.8 % (0.2-1.0) 06/25/18 04:01 Neut # (Auto) 5.0 x10^3/uL (2.2-4.8) H 06/25/18 04:01 Lymph # (Auto) 1.4 X10^3/uL (1.3-2.9) 06/25/18 04:01 [place] # (Auto) 0.8 x10^3/uL (0.3-0.8) 06/25/18 04:01 Eos # (Auto) 0.2 x10^3/uL (0.0-0.2) 06/25/18 04:01 Baso # (Auto) 0.1 X10^3/uL (0.0-0.1) 06/25/18 04:01 Absolute Nucleated RBC 0.0 /100WBC 06/25/18 04:01 INR Target Range - 06/25/18 04:01 INR 1.93 (0.8-1.3) H 06/25/18 04:01 Sodium 142 mmol/L (136-145) 06/25/18 04:01 Corrected Sodium 142 mmol/L (136-145) 06/25/18 04:01 Potassium 4.0 mmol/L (3.5-5.1) 06/25/18 04:01 Chloride 104 mmol/L (98-107) 06/25/18 04:01 Carbon Dioxide 31.0 mmol/L (21-32) 06/25/18 04:01 BUN 12 mg/dL (7-18) 06/25/18 04:01 Creatinine 1.17 mg/dL (0.55-1.02) H 06/25/18 04:01 Est GFR (MDRD) Af Amer 56 (>60) L 06/25/18 04:01 Est GFR (MDRD) Non-Af 47 (>60) L 06/25/18 04:01 Glucose 113 mg/dL (65-99) H 06/25/18 04:01 Calcium 8.3 mg/dL (8.5-10.1) L 06/25/18 04:01 Corrected Calcium 9.3 mg/dL (8.5-10.1) 06/25/18 04:01 Magnesium 2.7 mg/dL (1.7-2.9) 06/25/18 04:01 Total Bilirubin 0.40 mg/dL (0.2-1.0) 06/25/18 04:01 AST 21 Units/L (15-37) 06/25/18 04:01 ALT 24 Units/L (12-78) 06/25/18 04:01 Alkaline Phosphatase 85 Units/L (46-116) 06/25/18 04:01 Creatine Kinase 77 Units/L (26-192) 06/22/18 14:31 CK-MB (CK-2) 1.1 ng/mL (0-4.0) 06/22/18 14:31 CK/CKMB % Calc 1.4 % (<4) 06/22/18 14:31 Troponin I 0.03 ng/mL (0-1.5) 06/22/18 14:31 B-Natriuretic Peptide 804 pg/mL (0-79) H* 06/25/18 04:01 Total Protein 6.1 g/dL (6.4-8.2) L 06/25/18 04:01 Albumin 2.8 g/dL (3.4-5.0) L 06/25/18 04:01 Globulin 3.3 g/dL (2.5-4.5) 06/25/18 04:01 Albumin/Globulin Ratio 0.8 Ratio (1.1-2.1) L 06/25/18 04:01 Triglycerides 91 mg/dL (0-150) 06/23/18 05:12 Cholesterol 168 mg/dL (0-200) 06/23/18 05:12 LDL Cholesterol, Calc 116 mg/dL (0-100) H 06/23/18 05:12 HDL Cholesterol 34 mg/dL (40-60) L 06/23/18 05:12 Cholesterol/HDL Ratio 4.9 (0.0-5.0) 06/23/18 05:12 Specimen Type Catherized urine 06/22/18 03:00 Urine Color Pale yellow (YELLOW) 06/22/18 03:00 Urine Appearance Clear (CLEAR) 06/22/18 03:00 Urine pH 6.5 (5.0 - 8.0) 06/22/18 03:00 Ur Specific [place] 1.010 (1.000-1.030) 06/22/18 03:00 Urine Protein Negative (NEGATIVE) 06/22/18 03:00 Urine Glucose (UA) Negative (NEGATIVE) 06/22/18 03:00 Urine Ketones Negative (NEGATIVE) 06/22/18 03:00 Urine Occult Blood Negative (NEGATIVE) 06/22/18 03:00 Urine Nitrite Negative (NEGATIVE) 06/22/18 03:00 Urine Bilirubin Negative (NEGATIVE) 06/22/18 03:00 Urine Urobilinogen Normal (NORMAL) 06/22/18 03:00 Ur Leukocyte Esterase Negative (NEGATIVE) 06/22/18 03:00 Digoxin 0.83 ng/mL (0.9-2) L 06/25/18 04:01 - Plan (1) Uncontrolled hypertension Status: Acute Plan: AMLODIPINE 5MG PO DAILY, CONTINUE TO MONITOR (2) CHF (congestive heart failure) Status: Chronic Qualifiers: Heart failure type: combined systolic and diastolic Heart failure chronicity: acute on chronic Qualified Code(s): I50.43 - Acute on chronic combined systolic (congestive) and diastolic (congestive) heart failure Plan: CONTINUE PO LASIX, CONTINUE TO MONITOR (3) Altered mental status Status: Acute Qualifiers: Altered mental status type: transient alteration of awareness Qualified Code(s): R40.4 - Transient alteration of awareness Plan: ZYPREXA 2.5MG PO HS, TRANSFER TO [facility] (4) Closed fracture of foot with routine healing Status: Chronic Qualifiers: Laterality: right Qualified Code(s): S92.901D - Unspecified fracture of right foot, subsequent encounter for fracture with routine healing Plan: NORMAL HEALING, CONTINUE TO MONITOR (5) Atrial fibrillation Status: Chronic Qualifiers: Atrial fibrillation type: chronic Qualified Code(s): I48.2 - Chronic atrial fibrillation Plan: CONTINUE SOTOLOL, CONTINUE TO MONITOR
--- NOTE | 2018-06-25 09:52 | PCM.PROG ---
Progress Note - Progress Note for Day of Date of Exam: 06/25/18 - Subjective Subjective: WAS ADMITTED DUE TO UNCONTROLLED HYPERTENSION, SWELLING, AND ALTERED MENTAL STATUS. SHE WAS PLACED IN THE INTENSIVE CARE UNIT FOR ONE ON ONE CARE DUE TO AGITATION AND ALTERED MENTAL STATUS, BUT A FLOOR PATIENT. SHE IS HEMODYNAMICALLY STABLE AND DOES NOT REQUIRE THE ICU SETTING. SHE CAN BE TRANSFERRED OUT TO THE FLOOR AT ANY TIME SINCE HER AGITATION HAS IMPROVED AND NO LONGER REQUIRES ONE ON ONE CARE. HER BLOOD PRESSURE HAS REMAINED STABLE SINCE STARTING THE AMLODIPINE YESTERDAY. ON MORNING ROUNDS, SHE IS LYING IN BED WITH EYES OPEN. FAMILY REPORTS THAT SHE CONTINUES TO BE RESTLESS, BUT RESTED SLIGHTLY BETTER LAST NIGHT. SHE CONTINUES WITH GENERALIZED WEAKNESS, BUT DENIES SHORTNESS OF BREATH THIS MORNING. ON EXAMINATION, HEART IS REGULAR IN RATE AND RHYTHM. BILATERAL LUNGS ARE CLEAR TO AUSCULTATION. ABDOMEN IS ROUND, SOFT, AND NON-TENDER WITH NORMAL BOWEL SOUNDS NOTED IN ALL QUADRANTS. RIGHT FOOT IS NOTED WITH TRACE EDEMA AND BRUISING. HER VITALS TODAY ARE 98.2-64-22-94%-134/59. LABS WERE OBTAINED. ABNORMAL LAB VALUES INCLUDE THE FOLLOWING: RBC 3.44, HGB 11.2, HCT 32.1, INR 1.93, CREATININE 1.17, GLUCOSE 113, CALCIUM 8.3, TOTAL PROTEIN 6.1 , ALBUMIN 2.8, DIGOXIN 0.83. BNP HAS IMPROVED SINCE YESTERDAY. WE ARE WORKING ON TRANSFERRING PATIENT TO THE BEHAVIORAL HEALTH UNIT. SHE IS MEDICALLY CLEAR AND STABLE FOR TRANSFER. OTHERWISE, WE WILL CONTINUE WITH CURRENT PLAN OF CARE AND CONTINUE TO MONITOR PATIENT. - Past Medical Family Social History Past Med/Fam/Surg Hx: No changes since H&P Allergies: Allergies amiodarone Allergy (Verified 05/16/17 21:20) clonidine [From Catapres] Allergy (Verified 06/14/18 10:29) prednisone Allergy (Verified 05/16/17 21:20) amoxicillin Adverse Reaction (Verified 05/16/17 21:20) cetirizine [From Zyrtec] Adverse Reaction (Verified 05/16/17 21:20) clavulanic acid Adverse Reaction (Verified 05/16/17 21:20) erythromycin base [From Staticin] Adverse Reaction (Verified 05/16/17 21:20) ethyl alcohol [From Staticin] Adverse Reaction (Verified 05/16/17 21:20) Sulfa (Sulfonamide Antibiotics) [SULFA] Adverse Reaction (Verified 05/16/17 21: 20) tramadol Adverse Reaction (Verified 05/16/17 21:20) zolpidem Adverse Reaction (Verified 05/16/17 21:20) - Review of Systems ROS: No change since H&P - Vital Signs and I&O's Vital Signs: Temperature 98.2 F Pulse Rate [Apical] 64 Pulse Rate 65 Respiratory Rate 22 Blood Pressure [Left Arm] 147/65 Blood Pressure [Right Arm] 180/76 Blood Pressure 244/106 O2 Sat by Pulse Oximetry 94 Intake and Output: Intake & Output 06/22/18 06/23/18 06/24/18 06/25/18 11:59 11:59 11:59 11:59 Intake Total 930 / 930 790 / 790 1683 / 1683 Output Total 2800 / 2800 850 / 850 Balance -2800 / -2800 80 / 80 790 / 790 1683 / 1683 - Physical Exam Oriented: Person Eyes: Normal Ear: Normal Nose: Normal Throat: Normal Respiratory: Normal Cardiovascular: Edema (BIALTERAL LOWER EXTREMITIES TRACE EDEMA) : Normal Auscultation: Bowel Sounds: Normal Palpation: Normal Tenderness: Normal Skin: Wound (LEFT ELBOW LACERATION, REPAIRED WITH SUTURES ), Bruising (RIGHT FOOT ) Musculoskeletal: Right, Ankle, Foot, Swelling, Tender Psychiatric: Agitation Mood Description: Angry, Anxious Affect: Angry, Anxious Speech Pattern: Clear, Appropriate - Laboratory and Diagnostics Result Diagrams: 06/25/18 04:01 06/25/18 04:01 Labs: Laboratory WBC 7.4 X10^3/uL (3.6-10.0) 06/25/18 04:01 RBC 3.44 X10^6/uL (3.5-5.4) L 06/25/18 04:01 Hgb 11.2 g/dL (12.0-16.0) L 06/25/18 04:01 Hct 32.1 % (36.0-47.0) L 06/25/18 04:01 MCV 93.4 fL (80.0-100.0) 06/25/18 04:01 MCH 32.6 pg (27.0-34.0) 06/25/18 04:01 MCHC 34.9 g/dL (33.0-35.0) 06/25/18 04:01 RDW 15.2 % (11.6-16.5) 06/25/18 04:01 Plt Count 380 X10^3/uL (150.0-450.0) 06/25/18 04:01 MPV 7.5 fL (7.4-11.0) 06/25/18 04:01 Neut % (Auto) 67.1 % (42.0-75.0) 06/25/18 04:01 Lymph % (Auto) 18.3 % (21.0-51.0) L 06/25/18 04:01 [place] % (Auto) 10.9 % (0.0-13.0) 06/25/18 04:01 Eos % (Auto) 2.9 % (0.9-2.9) 06/25/18 04:01 Baso % (Auto) 0.8 % (0.2-1.0) 06/25/18 04:01 Neut # (Auto) 5.0 x10^3/uL (2.2-4.8) H 06/25/18 04:01 Lymph # (Auto) 1.4 X10^3/uL (1.3-2.9) 06/25/18 04:01 [place] # (Auto) 0.8 x10^3/uL (0.3-0.8) 06/25/18 04:01 Eos # (Auto) 0.2 x10^3/uL (0.0-0.2) 06/25/18 04:01 Baso # (Auto) 0.1 X10^3/uL (0.0-0.1) 06/25/18 04:01 Absolute Nucleated RBC 0.0 /100WBC 06/25/18 04:01 INR Target Range - 06/25/18 04:01 INR 1.93 (0.8-1.3) H 06/25/18 04:01 Sodium 142 mmol/L (136-145) 06/25/18 04:01 Corrected Sodium 142 mmol/L (136-145) 06/25/18 04:01 Potassium 4.0 mmol/L (3.5-5.1) 06/25/18 04:01 Chloride 104 mmol/L (98-107) 06/25/18 04:01 Carbon Dioxide 31.0 mmol/L (21-32) 06/25/18 04:01 BUN 12 mg/dL (7-18) 06/25/18 04:01 Creatinine 1.17 mg/dL (0.55-1.02) H 06/25/18 04:01 Est GFR (MDRD) Af Amer 56 (>60) L 06/25/18 04:01 Est GFR (MDRD) Non-Af 47 (>60) L 06/25/18 04:01 Glucose 113 mg/dL (65-99) H 06/25/18 04:01 Calcium 8.3 mg/dL (8.5-10.1) L 06/25/18 04:01 Corrected Calcium 9.3 mg/dL (8.5-10.1) 06/25/18 04:01 Magnesium 2.7 mg/dL (1.7-2.9) 06/25/18 04:01 Total Bilirubin 0.40 mg/dL (0.2-1.0) 06/25/18 04:01 AST 21 Units/L (15-37) 06/25/18 04:01 ALT 24 Units/L (12-78) 06/25/18 04:01 Alkaline Phosphatase 85 Units/L (46-116) 06/25/18 04:01 Creatine Kinase 77 Units/L (26-192) 06/22/18 14:31 CK-MB (CK-2) 1.1 ng/mL (0-4.0) 06/22/18 14:31 CK/CKMB % Calc 1.4 % (<4) 06/22/18 14:31 Troponin I 0.03 ng/mL (0-1.5) 06/22/18 14:31 B-Natriuretic Peptide 804 pg/mL (0-79) H* 06/25/18 04:01 Total Protein 6.1 g/dL (6.4-8.2) L 06/25/18 04:01 Albumin 2.8 g/dL (3.4-5.0) L 06/25/18 04:01 Globulin 3.3 g/dL (2.5-4.5) 06/25/18 04:01 Albumin/Globulin Ratio 0.8 Ratio (1.1-2.1) L 06/25/18 04:01 Triglycerides 91 mg/dL (0-150) 06/23/18 05:12 Cholesterol 168 mg/dL (0-200) 06/23/18 05:12 LDL Cholesterol, Calc 116 mg/dL (0-100) H 06/23/18 05:12 HDL Cholesterol 34 mg/dL (40-60) L 06/23/18 05:12 Cholesterol/HDL Ratio 4.9 (0.0-5.0) 06/23/18 05:12 Specimen Type Catherized urine 06/22/18 03:00 Urine Color Pale yellow (YELLOW) 06/22/18 03:00 Urine Appearance Clear (CLEAR) 06/22/18 03:00 Urine pH 6.5 (5.0 - 8.0) 06/22/18 03:00 Ur Specific [place] 1.010 (1.000-1.030) 06/22/18 03:00 Urine Protein Negative (NEGATIVE) 06/22/18 03:00 Urine Glucose (UA) Negative (NEGATIVE) 06/22/18 03:00 Urine Ketones Negative (NEGATIVE) 06/22/18 03:00 Urine Occult Blood Negative (NEGATIVE) 06/22/18 03:00 Urine Nitrite Negative (NEGATIVE) 06/22/18 03:00 Urine Bilirubin Negative (NEGATIVE) 06/22/18 03:00 Urine Urobilinogen Normal (NORMAL) 06/22/18 03:00 Ur Leukocyte Esterase Negative (NEGATIVE) 06/22/18 03:00 Digoxin 0.83 ng/mL (0.9-2) L 06/25/18 04:01 - Plan (1) Uncontrolled hypertension Status: Resolved Plan: AMLODIPINE 5MG PO DAILY, STABLE AT THIS TIME, CONTINUE TO MONITOR (2) CHF (congestive heart failure) Status: Chronic Qualifiers: Heart failure type: combined systolic and diastolic Heart failure chronicity: acute on chronic Qualified Code(s): I50.43 - Acute on chronic combined systolic (congestive) and diastolic (congestive) heart failure Plan: CONTINUE PO LASIX, CONTINUE TO MONITOR (3) Altered mental status Status: Acute Qualifiers: Altered mental status type: transient alteration of awareness Qualified Code(s): R40.4 - Transient alteration of awareness Plan: ZYPREXA 2.5MG PO HS, TRANSFER TO [facility] (4) Closed fracture of foot with routine healing Status: Chronic Qualifiers: Laterality: right Qualified Code(s): S92.901D - Unspecified fracture of right foot, subsequent encounter for fracture with routine healing Plan: NORMAL HEALING, CONTINUE TO MONITOR (5) Atrial fibrillation Status: Chronic Qualifiers: Atrial fibrillation type: chronic Qualified Code(s): I48.2 - Chronic atrial fibrillation Plan: CONTINUE SOTOLOL, CONTINUE TO MONITOR
[2018-06-25] MEDS: COLACE CAP 100 MG PO SCH (20:32)
[2018-06-25] MEDS: COUMADIN TAB 5 MG PO SCH (20:32)
[2018-06-25] MEDS: MILK OF MAGNESIA PO SCH (20:33)
[2018-06-25] MEDS: LASIX PO SCH (22:00)
[2018-06-26] MEDS: PROVENTIL NEB TX 0.083% 2.5MG/ 3ML IN SCH ×3 (01:18→09:34)
[2018-06-26 06:10] LABS: ALANINE AMINOTRANSFERASE 22 Units/L (12-78); ALBUMIN 2.9 g/dL (3.4-5.0); ALKALINE PHOSPHATASE 86 Units/L (46-116); ASPARTATE AMINO TRANSFERASE 21 Units/L (15-37); BLOOD UREA NITROGEN 13 mg/dL (7-18); CALCIUM 8.4 mg/dL (8.5-10.1); CARBON DIOXIDE 32.2 mmol/L (21-32); CHLORIDE 105 mmol/L (98-107); COR CA(FOR HYPOALB) 9.3 mg/dL (8.5-10.1); CREATININE 1.23 mg/dL (0.55-1.02); DIGOXIN 1.34 ng/mL (0.9-2); SODIUM 142 mmol/L (136-145); TOTAL PROTEIN 6.2 g/dL (6.4-8.2); eGFR NON BLACK RACES 44 (>60)
[2018-06-26 06:23] LABS: BASOPHILS # (AUTO) 0.1 X10^3/uL (0.0-0.1); BASOPHILS % (AUTO) 1.2 % (0.2-1.0); EOSINOPHILS # (AUTO) 0.2 x10^3/uL (0.0-0.2); EOSINOPHILS % (AUTO) 2.6 % (0.9-2.9); HEMATOCRIT 32.4 % (36.0-47.0); HEMOGLOBIN 11.3 g/dL (12.0-16.0); LYMPHOCYTES # (AUTO) 1.3 X10^3/uL (1.3-2.9); LYMPHOCYTES % (AUTO) 17.9 % (21.0-51.0); MEAN CORPUSCULAR HEMOGLOBIN 32.5 pg (27.0-34.0); MEAN CORPUSCULAR HGB CONC 34.9 g/dL (33.0-35.0); MEAN CORPUSCULAR VOLUME 93.2 fL (80.0-100.0); MEAN PLATELET VOLUME 7.6 fL (7.4-11.0); MONOCYTES # (AUTO) 0.7 x10^3/uL (0.3-0.8); MONOCYTES % (AUTO) 10.1 % (0.0-13.0); NEUTROPHILS # (AUTO) 4.9 x10^3/uL (2.2-4.8); NEUTROPHILS % (AUTO) 68.2 % (42.0-75.0); PLATELET COUNT 345 X10^3/uL (150.0-450.0); RED BLOOD COUNT 3.48 X10^6/uL (3.5-5.4); RED CELL DISTRIBUTION WIDTH 15.5 % (11.6-16.5); WHITE BLOOD COUNT 7.2 X10^3/uL (3.6-10.0)
[2018-06-26] MEDS: TYLENOL 325 MG TAB PO PRN (08:46)
[2018-06-26] MEDS: LANOXIN PO SCH (08:47)
[2018-06-26] MEDS: BETAPACE AF PO SCH (08:47)
[2018-06-26] MEDS: NORVASC TAB 5 MG PO SCH (08:49)
[2018-06-26] MEDS: LASIX PO SCH (08:49)
[2018-06-26] MEDS: ZANTAC PO SCH (08:50)
[2018-06-26 10:08] VITALS: BP 108/65
--- NOTE | 2018-08-13 01:12 | DR.CARTERD ---
- Discharge Summary for: Discharge Summary for Date of:: 06/26/18 - Admission Date Date of Admission: 06/22/18 - Admission Diagnoses Admission Diagnosis: (1) Uncontrolled hypertension (2) CHF (congestive heart failure) (3) Altered mental status (4) Closed fracture of foot with routine healing - Discharge Date Discharge Date: 06/26/18 - Discharge Diagnoses Discharge Diagnosis: (1) Altered mental status (2) CHF (congestive heart failure) (3) Uncontrolled hypertension (4) Closed fracture of foot with routine healing (5) Atrial fibrillation - Hospital Course Hospital Course: DAY ONE, IS A 87 YEAR OLD PATIENT OF OURS WHO PRESENTED TO THE HOSPITAL FOR COMPLAINTS OF FALLING AT HOME, ELEVATED BLOOD PRESSURE, A LEFT ELBOW LACERATION, SHORTNESS OF BREATH, AND ALTERED MENTAL STATUS. PATIENT WAS RECENTLY DISCHARGED FROM THE HOSPITAL FOR TREATMENT OF ATRIAL FIBRILLATION, UTI, AND A RIGHT FOOT METATARSAL FRACTURE FOLLOWING A FALL. FAMILY REPORTED THAT SINCE RETURNING HOME, SHE HAD CONTINUED WITH AGITATION AND ALTERED MENTAL STATUS. THEY REPORTED THAT SHE FELL AT HOME AGAIN PRIOR TO ARRIVAL AND HIT HER ELBOW. ON ARRIVAL, VITALS WERE 99.0-68-18-97%-244/106. LABS WERE OBTAINED. ABNORMAL LAB VALUES INCLUDED THE FOLLOWING: RBC 3.36, HGB 10.9, HCT 31.1, INR 2.04, BUN 23, CREATININE 1.16, GLUCOSE 106, AST 47, BNP 786, ALBUMIN 3.0, DIGOXIN 0.78. CARDIAC ENZYMES WITHIN NORMAL LIMITS. URINALYSIS WAS UNREMARKABLE. A CHEST XRAY WAS OBTAINED AND REVEALED CARDIOMEGALY AND CHRONIC LUNG CHANGES WITH POSSIBLE EFFUSIONS. NO DENSE CONSOLIDATION SEEN. EKG REVEALED: SINUS RHYTHM WITH HR 67. RIGHT FOOT CONTINUES WITH 1+ PITTING EDEMA AND BRUISING. A DALE CATHETER WAS PLACED IN THE ER. HER BLOOD PRESSURE EVENTUALLY DECREASED TO 180/76. LEFT ELBOW LACERATION WAS REPAIRED WITH SUTURES IN THE ER. SHE WAS ADMITTED TO THE HOSPITAL FOR FURTHER EVALUATION AND TREATMENT. SHE WAS STARTED ON HALDOL 2MG IV Q4H PRN FOR AGITATION AND HOME MEDICATIONS WERE RESUMED. WE CONTINUED TO MONITOR PATIENT. DAY TWO, SHE WAS LYING IN BED WITH EYES OPEN ON MORNING ROUNDS. SHE WAS NOTED TO BE DISORIENTED. FAMILY REPORTED THAT SHE HAD BEEN FALLING AT HOME. SHE REPORTED GENERALIZED WEAKNESS. ON EXAMINATION, HEART WAS REGULAR IN RATE AND RHYTHM. BILATERAL LUNGS WERE NOTED WITH DIMINISHED LUNG SOUNDS THROUGHOUT. ABDOMEN WAS ROUND, SOFT, AND NON-TENDER WITH NORMAL BOWEL SOUNDS NOTED IN ALL QUADRANTS. RIGHT FOOT WAS NOTED WITH 1+ PITTING EDEMA AND BRUISING. HER VITALS WERE 97.7-83-18-98%-151/59. LABS WERE OBTAINED. ABNORMAL LAB VALUES INCLUDED THE FOLLOWING: RBC 3.15, HGB 10.4, HCT 28.8, INR 1.99, CREATININE 1.15, GLUCOSE 105, CALCIUM 8.2, TOTAL PROTEIN 5.8, ALBUMIN 2.7. CARDIAC ENZYMES WERE WITHIN NORMAL LIMITS. WE GAVE LASIX 40MG IV X 2 DOSES. WE CONTINUED TO MONITOR PATIENT. DAY THREE, HER BLOOD PRESSURE HAD DECREASED, SINCE ADMISSION, BUT HAD REMAINED SLIGHTLY ELEVATED. WE STARTED AMLODIPINE 5MG PO. SINCE STARTING THE AMLODIPINE, BLOOD PRESSURE HAD DECREASED AND WAS STABLE. ON MORNING ROUNDS, SHE WAS LYING IN BED WITH EYES OPEN ON MORNING ROUNDS. FAMILY REPORTED THAT SHE WAS AGITATED AND SLIGHTLY CONFUSED THROUGHOUT THE NIGHT, BUT APPEARED TO BE BETTER. SHE CONTINUED WITH GENERALIZED WEAKNESS, BUT DENIED SHORTNESS OF BREATH. ON EXAMINATION, HEART WAS REGULAR IN RATE AND RHYTHM. BILATERAL LUNGS NOTED WITH DIMINISHED LUNG SOUNDS THROUGHOUT. ABDOMEN WAS ROUND, SOFT, AND NON-TENDER WITH NORMAL BOWEL SOUNDS NOTED IN ALL QUADRANTS. RIGHT FOOT WAS NOTED WITH TRACE EDEMA AND BRUISING. HER VITALS WERE 98.8-64-18-94%-184/96. LABS WERE OBTAINED. ABNORMAL LAB VALUES INCLUDED THE FOLLOWING: RBC 3.24, HGB 10.7, HCT 30.0, INR 2.04, POTASSIUM 3.2, CREATININE 1.21, CALCIUM 8.2, TOTAL PROTEIN 5.9, ALBUMIN 2.8. CARDIAC ENZYMES WITHIN NORMAL LIMITS. WE RESTARTED HER LASIX BY MOUTH. WE ALSO STARTED ZYPREXA 2.5MG PO HS TO HELP HER REST AT NIGHT. WE CONTINUED TO MONITOR PATIENT. DAY FOUR, SHE WAS PLACED IN THE INTENSIVE CARE UNIT FOR ONE ON ONE CARE DUE TO AGITATION AND ALTERED MENTAL STATUS, BUT A FLOOR PATIENT. SHE WAS HEMODYNAMICALLY STABLE AND DID NOT REQUIRE THE ICU SETTING. AGITATION HAD IMPROVED AND NO LONGER REQUIRED ONE ON ONE CARE. HER BLOOD PRESSURE HAD REMAINED STABLE SINCE STARTING THE AMLODIPINE. ON MORNING ROUNDS, SHE WAS LYING IN BED WITH EYES OPEN. FAMILY REPORTED THAT SHE CONTINUED TO BE RESTLESS, BUT RESTED SLIGHTLY BETTER LAST NIGHT. SHE CONTINUED WITH GENERALIZED WEAKNESS, BUT DENIED SHORTNESS OF BREATH. ON EXAMINATION, HEART WAS REGULAR IN RATE AND RHYTHM. BILAT ERAL LUNGS WERE CLEAR TO AUSCULTATION. ABDOMEN WAS ROUND, SOFT, AND NON-TENDER WITH NORMAL BOWEL SOUNDS NOTED IN ALL QUADRANTS. RIGHT FOOT WAS NOTED WITH TRACE EDEMA AND BRUISING. HER VITALS WERE 98.2-64-22-94%-134/59. LABS WERE OBTAINED. ABNORMAL LAB VALUES INCLUDED THE FOLLOWING: RBC 3.44, HGB 11.2, HCT 32.1, INR 1.93, CREATININE 1.17, GLUCOSE 113, CALCIUM 8.3, TOTAL PROTEIN 6.1, ALBUMIN 2.8, DIGOXIN 0.83. BNP HAS IMPROVED. WE WERE WORKING ON TRANSFERRING PATIENT TO THE [facility] UNIT. SHE WAS MEDICALLY CLEAR AND STABLE FOR TRANSFER. WE CONTINUED TO MONITOR PATIENT. DAY FIVE, NO CHANGES NOTED IN PATIENT CONDITION. SHE REMAINED STABLE. VITAL SIGNS STABLE. LABS WNL. [facility] ACCEPTED PATIENT FOR TRANSFER. WE TRANSFERRED PATIENT IN STABLE CONDITION VIA EMS. - Discharge Medications Discharge Medications: Home Medication List olanzapine [Zyprexa] 2.5 mg PO DAILY@1800 #0 tab 06/24/18 [Rx] Prescriptions: - Discharge Disposition Discharge Disposition: PATIENT IS TO FOLLOW UP IN OUR OFFICE UPON DISCHARGE FROM [facility].
== END 2018-06-26 10:20 ==
LOC: ICU 02:10 → ER 02:10 → ICU 07:57
PROVIDERS: ADMIT Internal Medicine; ATTEND Internal Medicine
DX: I10 Essential (primary) hypertension; I50.43 Acute on chronic combined systolic (congestive) and diastolic (congestive) heart failure; R94.4 Abnormal results of kidney function studies; I25.10 Atherosclerotic heart disease of native coronary artery without angina pectoris; I48.2 Chronic atrial fibrillation; K21.9 Gastro-esophageal reflux disease without esophagitis; R60.0 Localized edema; R26.89 Other abnormalities of gait and mobility; Z79.01 Long term (current) use of anticoagulants; R06.02 Shortness of breath; R51 Headache; I51.7 Cardiomegaly; W18.39XA Other fall on same level, initial encounter; S51.012A Laceration without foreign body of left elbow, initial encounter; R94.31 Abnormal electrocardiogram [ECG] [EKG]; R40.4 Transient alteration of awareness
CPT/HCPCS: 36415; 51702; 71010; 71045; 80053; 80061; 80162; 81003; 82550; 82553; 83735; 83880; 84132; 84484; 85025; 85610; 93005; 94640; 96365; 96374; 97110; 97163; 97167; 97530; 97535; 99284; A4222; G0378; J1630; J1940; J2405; J3475; J3480; J3490; J7040; J7613